=== PATIENT | female | born 1960 | race Caucasian/White ===

== ENCOUNTER 2024-03-10 13:20 | Outpatient (CLI) | payer MEDICARE, SELFPAY ==
--- OUTSIDE RECORDS SUMMARY | 2024-03-10 13:24 | XMS_ITS | Encounter Summary ---
Author Organization [facility] Address [address] [address] Phone Care Team Providers Care Descriptive Catalog Librarian Name Role Phone Karla Madera RN Unavailable [phone] Kyle Swann MD Primary Care Provider [phone] Reason for Visit * Reason Onset Date Comments Transitional Care 03/06/2024 Encounter Details Date Type Department Care Team (Late st Contact Info) Description 03/06/2024 Telephone [facility] - NURSE CARE LINE [address] [place] [address] Bernarda Almaraz, bag machine helper Social History Tobacco Use Types Packs/Day Years Used Date Smoking Tobacco: Every Day Cigarettes 1.5 40 Smokeless Tobacco: Never Comments:1 pack Alcohol Use Standard Drinks/Week Comments Yes 0 (1 standard drink = 0.6 oz pur e alcohol) five drinks per week [facility] Utilities Answer Date Recorded In the past 12 months has [employer], gas, oil, or water [employer] threatened to shut off services in your home? Patient declined 03/01/2024 Overall Financial Resource Strain (CARDIA) Answe r Date Recorded How hard is it for you to pa y for the very basics like food, housing, medical care, and heating? Not hard at all 08/28/2022 PHQ-2 Answer Date Recorded PHQ-2 Total 0 03/01/2024 Hunger Vital Sign Answer Date Recorded Within the past 12 months, y ou worried that your food would run out before you got the money to buy more. Patient declined Within the past 12 months, t he food you bought just didn't last and you didn't have money to get more. Patient declined PRAPARE - Transportation Answer Date Re corded In the past 12 months, has l ack of transportation kept you from medical appointments or from getting medications? Patient declined 03/03/2024 In the past 12 months, has l ack of transportation kept you from meetings, work, or from getting things needed for daily living? Patient declined 03/03/2024 Housing Stability Vital Sign Answer Osei e Recorded In the last 12 months, was t here a time when you were not able to pay the mortgage or rent on time? Patient declined 03/03/20 24 In the past 12 months, how m any times have you moved where you were living? 0 03/03/2024 At any time in the past 12 m [facility], were you homeless or living in a senior living (including now)? Patient declined 03/03/2024 EH IP Custom IPV Answer Date Recorded Do you feel UNSAFE in any of your personal relationships with your family members or any other acquaintances? No 2023 Sex and Gender Information Value Date Recorded Sex Assigned at Not on file Gender Identity Not on file Sexual Orientation Not on file Job Start Date Occupation Industry Not on file Not on file Not on file documented as of this encounter Functional Status Functional Status Response Date of Assess ment Patient's Vision Adequate to Safely Complete Daily Activities Yes 03/02/2024 Patient's Memory Adequate to Safely Complete Daily Activities Yes 03/02/2024 Cognitive Status Response Date of Assessm ent Patient's Judgment Adequate to Safely Complete Daily Activities Yes 03/02/2024 documented as of this encounter Miscellaneous Notes * Telephone Encounter - Bernarda Almaraz RN - 03/06/2024 11:46 AM CDT Transition of Care NOAH Admission Date: [03/02/24] Discharge Date: 03/05/24 Patient was discharged to: Home Spoke with: patient Patient is located in [place] Health Status: About the same. Discharge Instructions: Patient did receive discharge instructions. Patient does not have questions regarding the discharge instructions. Medications: Reviewed new and/or changed medications: Yes Patient does not have questions regarding her medications. Patient was able to get the medications filled at the pharmacy. Pain: Patient does not have pain at this time. Does patient have a diagnosis of Heart Failure? No Activity: Patient does have someone to help them at home and does feel comfortable taking care of Self at home. Patient does have all the equipment/services needed at home. Appointments: Patient has an appointment scheduled with Kyle Swann MD on 03/10/24 with an arrival time of 0945 and with Megan Herring PA-C on 03/17/24 with an arrival time of 1405. Patient does have questions or barriers about this appointment. Patient stated she may have to reschedule the appointment with Dr. Swann. She will call if needing a different date/time. Community Para Professional: No need identified for community spiral winder services Medication Therapy Management appointment was not scheduled for the following reason patient refuse. Patient was made aware of 05/01 nurse availability. Patient was able to verbalize when and who to call with questions/concerns. Total time spent on encounter: under 10 documented in this encounter Plan of Treatment Upcoming Encounters Date Type Department Care Team (Late st Contact Info) Description 03/17/2024 2:20 PM CDT Appointment [facility] [address] [place] [address] Megan Herring PA-C [address] [place] [phone] documented as of this encounter Visit Diagnoses Not on filedocumented in this encounter Additional Health Concerns Infection Onset Date Last Indicated Resolved Time History of C difficile 01/13/2024 01/13/2024 documented as of this encounter Care Teams Descriptive Catalog Librarian Relationship Specialty Start Date End Date Kyle Swann MD [address] [place] [address] PCP - General Family Medicine 02/12/24 Karla Madera, RN Member Services Representative 12/13/22 documented as of this encounter
--- OUTSIDE RECORDS SUMMARY | 2024-03-10 13:24 | XMS_ITS | Encounter Summary ---
Author Organization [facility] Address [address] [address] Phone Care Team Providers Care Coal Weigher Name Role Phone Karla Madera RN Unavailable [phone] Kyle Swann MD Primary Care Provider [phone] Reason for Visit * Reason Onset Date Comments Population Management 03/07/2024 Transition of Care review Encounter Details Date Type Department Care Team (Late st Contact Info) Description 03/07/[address] [facility]NA[facility] [address] [place] [address] Shadia Beckford, RN Population Management (Transition of Care review) Social History Tobacco Use Types Packs/Day Years Used Date Smoking Tobacco: Every Day Cigarettes 1.5 40 Smokeless Tobacco: Never Comments:1 pack Alcohol Use Standard Drinks/Week Comments Yes 0 (1 standard drink = 0.6 oz pur e alcohol) five drinks per week [facility] Utilities Answer Date Recorded In the past 12 months has [employer], gas, oil, or water [employer] threatened to shut off services in your [...] any time in the past 12 m [facility], were you homeless or living in a long-term (including now)? Patient declined 03/03/2024 IP Custom IPV Answer Date Recorded Do [...] Yes 03/02/2024 documented as of this encounter Progress Notes * Shadia Beckford RN - 03/07/2024 10:41 AM CDT Patient was discharged from [facility] on 03/05/2024. No post-discharge callwas completed because NOL made ONA[facility] call . documented in this encounter Plan of Treatment Upcoming Encounters Date Type Department Care Team ([facility] Contact Info) Description 03/17/2024 2:20 PM CDT Appointment [facility] [address] [place], [place] [id number] Megan Herring PA-C [address] [place] [phone] documented as of this encounter Visit Diagnoses Not on filedocumented in this encounter Additional Health Concerns Infection Onset Date Last Indicated Resolved Time History of C difficile 01/13/2024 01/13/2024 documented as of this encounter Care Teams Coal Weigher Relationship Specialty Start Date End Date Kyle Swann MD [address] [place] [address] PCP - General Family Medicine 02/12/24 Karla Madera, RN Rope Rider 12/13/22 documented as of this encounter
--- OUTSIDE RECORDS SUMMARY | 2024-03-10 13:24 | XMS_ITS | Encounter Summary ---
Author Organization [facility] Address [address] [address] Phone Care Team Providers Care Medical Collector Name Role Phone Karla Madera RN Unavailable [phone] Kyle Swann MD Primary Care Provider [phone] Reason for Referral * Office Visit (Routine) - New Request Specialty Diagnoses / Procedures Referred By Genia bautista Referred To Contact Gastroenterology Diagnoses Hospital discharge follow-up Dirk Saldana DO [address] [place] [address] Referral ID Status Reason Start Date Expiration Date V isits Requested Visits Authorized [id number] New Request 03/05/2024 09/02/2024 1 1 Question Answer Follow-up With: Other Specialty Referral Type: New Referral/Consult Dept Specialty: Gastroenterology [10] Follow-up Time Frame: 2 Weeks Diagnosis supporting this Referral: Hospital discharge follow-up [[id number]] * Office Visit (Routine) - New Request Specialty Diagnoses / Procedures Referred By Genia batuista Referred To Contact Family Medicine Diagnoses Diarrhea of presumed infectious origin Dirk Saldana DO [address] [place] [address] Referral ID Status Reason Start Date Expiration Date V isits Requested Visits Authorized [id number] New Request 03/05/2024 03/05/2025 1 1 Question Answer What type of Primary Care are you looking for? Hospital Follow-Up [9] Comments Location: [facility]. Reason for Referral: Hospital follow up ## Scheduling Instructions: Please call the [place] schedulers at [phone] or send the referral to the [facility] Schedulers pool ([id number]). ## Location of [facility], [facility] [address] [place] [address], [address] Phone #: [phone] Fax #: [phone] * Medication Prior Authorization - Closed Specialty Diagnoses / Procedures Referred By Genia bautista Referred To Contact Diagnoses Daily consumption of alcohol Dirk Saldana DO [address] [place] [id number] Referral ID Status Reason Start Date Expiration Date Visits Re quested Visits Authorized [id number] Closed 03/05/2024 1 1 Reason for Visit * Auth/Cert Specialty Diagnoses / Procedures Referred By Genia bautista Referred To Contact Diagnoses Recurrent c diff, hypokalemia Parmjit Hurley MD [address] [place] [phone] Referral ID Status Reason Start Date Expiration Date Visits Re quested Visits Authorized [id number] 1 1 Encounter Details Date Type Department Care Team (Latest Contact Info) Description 03/02/2024 3:45 AM CDT - 03/05/2024 5:57 PM CDT Hospital Encounter [facility] MED/SURG [address] [place], [place] [address] Parmjit Hurley MD [address] [place] [id number] Dirk Saldana DO [address] [place] [address] Diarrhea of presumed infectious origin (Primary Dx); Daily consumption of alcohol; Hospital discharge follow-up Discharge Disposition: Home and/or Self Care Social History Tobacco Use Types Packs/Day Years Used Date Smoking Tobacco: Every Day Cigarettes 1.5 40 Smokeless Tobacco: Never Comments:1 pack Alcohol Use Standard Drinks/Week Comments Yes 0 (1 standard drink = 0.6 oz pur e alcohol) five drinks per week [facility] Utilities Answer Date Recorded In the past 12 months has th e electric, gas, oil, or water company threatened to shut off services in your [...] any time in the past 12 m [facility], were you homeless or living in a halfway (including now)? Patient declined 03/03/2024 IP Custom [...] on file documented as of this encounter Last Filed Vital Signs Vital Sign Reading Time Taken Comments Blood Pressure 161/88 03/05/2024 6:28 AM CDT Pulse 102 03/05/2024 6:28 AM CDT Temperature 36.6 ??C (97.9 ??F) 03/05/2024 6:28 AM CD T Respiratory Rate 16 03/05/2024 11:17 AM CDT Oxygen Saturation 91% 03/05/2024 6:28 AM CDT Inhaled Oxygen Concentration - - Weight 63.3 kg (139 lb 8.8 oz) 03/03/2024 3:45 A M CDT Height - - Body Mass Index 23.95 01/30/2024 1:26 PM CDT documented in this encounter Functional Status Functional Status Response Date of Assess ment Patient's Vision Adequate to Safely Complete Daily Activities Yes 03/02/2024 Patient's Memory Adequate to Safely Complete Daily Activities Yes 03/02/2024 Cognitive Status Response Date of Assessm ent Patient's Judgment Adequate to Safely Complete Daily Activities Yes 03/02/2024 documented as of this encounter Discharge Summaries * Dirk Saldana DO - 03/05/2024 4:04 PM CDT Images from the original note were not included. 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 * Follow-Up Recommendations for the Outpatient Clinician -Recheck BMP and Mg -GI follow up to consider colonoscopy -Diarrhea Hospital Course Yas is a 64 year old female with a past medical history significant for hypertension and anxiety.She presents to the hospital with continued diarrhea. Worsening weakness. Fatigue. Reports she was initially diagnosed with C. difficile colitis in December. Started on a 10-day vancomycin course. Symptoms never resolved and return to the ER and was placed on a Dificid course, she is unsure how long for. Again had no resolution of her diarrhea and upon return to the ER was placed on an extended vancomycin taper. She is now the point in the taper where she is taking vancomycin every 48 hours. Statesdespite extensive treatment for the last almost 2 months she has had no relief of her symptoms. Shehas had recurrent electrolyte abnormalities and loose stools. Foul-smelling. No blood or mucus. Occasional abdominal pain / Cramping. Denies any fevers or chills. Was admitted for IV fluid hydration and electrolyte replacement as well as continued treatment for her presumed C. difficile colitis. C.difficile testing negative, stopped abx. Enteric pathogens negative. Started on Imodium with resolution of diarrhea, will need GI evaluation for consideration of a scope. Started on Mg and vitamin supplements. Should have electrolytes rechecked within a week at PCP follow up. Disposition and Discharge Plan Medications: Current Discharge Medication List New Prescriptions Details loperamide 2 MG capsule Commonly known as: Imodium Dose: 4 mg 4 mg, Oral, 4 TIMES DAILY NEEDED magnesium oxide 400 (240 Mg) MG Tablet Dose: 400 mg Start taking on: March 06, 2024 400 mg, Oral, ONCE DAILY plus vitamin with folic acid 1 mg tablet Dose: 1 Tablet Start taking on: March 06, 2024 1 Tablet, Oral, ONCE DAILY simethicone 80 MG chewable tablet Commonly known as: Gas-X Dose: 160 mg 160 mg, Chew, EVERY 6 HOURS NEEDED thiamine 100 MG tablet Commonly known as: Vitamin B-1 Dose: 100 mg Start taking on: March 06, 2024 100 mg, Oral, ONCE DAILY Continued Details aspirin 81 MG tablet 1 tablet once daily metoprolol succinate 100 MG 24 hour extended-release tablet Commonly known as: Toprol-XL Dose: 50 mg 50 mg, Oral, ONCE DAILY, Do not crush or chew. ondansetron 4 MG disintegrating tablet Commonly known as: Zofran ODT Dose: 4 mg 4 mg, Oral, EVERY 8 HOURS NEEDED You might also be taking other medications not listed above. If you have questions about any of your other medications, talk to the person who prescribed them or your Primary Care Provider. Stopped vancomycin 125 MG capsule Commonly known as: Vancocin Disposition: Yas was discharged from [facility] Med/surg to home. Yas was seen and examined on the date of discharge. Patient Instructions / Education: Please see After Visit Summary No future appointments. Referrals & Outpatient Orders: Discharge Procedure Orders Appt with [facility] Referral Priority: Routine Referral Type: Office Visit Requested Specialty: Family Medicine Number of Visits Requested: 1 Expiration Date: 03/05/25 Follow-up With: Other Specialty; Referral Type: New Referral/Consult; Dept Specialty: Gastroenterology Referral Priority: Routine Referral Type: Office Visit Number of Visits Requested: 1 Expiration Date: 09/02/24 Condition on Discharge Vital Signs: Blood pressure (!) 161/88, pulse 102, temperature 36.6 ??C (97.9 ??F), temperature source Oral, resp. rate 16, weight 63.3 kg (139 lb 8.8 oz), last menstrual period 04/15/2007, SpO2 91%. Physical Exam General Appearance: No apparent distress. Resting comfortably CV: Regular rate and rhythm. No murmur. No peripheral edema Resp: Clear to auscultation bilaterally. No respiratory distress. No oxygen requirement GI/ABD: Bowel sounds active. Abdomen is soft and nontender to palpation. No guarding or peritoneal signs. Skin: Warm. Dry. Intact. No jaundice MSK: No deformity. Neuro: Alert and oriented x 3 Psych: Mildly depressed affect Code Status:Full Code Hospitalization Data and Events Recent Labs: In Process Labs (336h ago, onward) None Recent Results (from the past 24 hour(s)) BASIC METABOLIC PANEL Result Value Ref Range Sodium 132 (L) 134 - 143 mEq/L Potassium 3.6 3.4 - 5.1 mEq/L Chloride 92 (L) 99 - 110 mEq/L Carbon Dioxide 27 19 - 29 mEq/L Anion Gap 13.0 3.0 - 15.0 mEq/L Blood Urea Nitrogen 3 (L) 5 - 24 mg/dL Creatinine 0.48 0.40 - 1.00 mg/dL Glomerular Filtration Rate 104 >60 mL/min/1.73 m*2 Calcium 8.7 8.4 - 10.5 mg/dL Glucose 150 (H) 70 - 99 mg/dL Narrative Current ADA criteria for Glucose: Normal: 70-99 mg/dL Impaired Fasting Glucose: 100-125 mg/dL Diabetes Mellitus: at or above 126 mg/dL The diagnosis of diabetes must be confirmed on a subsequent day by measuring Fasting Plasma Glucose, 2-hr PG or random plasma glucose (if symptoms are present). MAGNESIUM Result Value Ref Range Magnesium 1.6 (L) 1.8 - 2.7 mg/dL No results found for: Consultants: IP CONSULT TO NUTRITION SERVICES Procedures: None Imaging: Results for orders placed or performed in visit on 03/01/24 1. XR CHEST 2 VIEWS Narrative This document is currently in Final Status Exam XR CHEST 2 VIEWS HISTORY: hypoxia; IMPRESSION: 08/28/2016 comparison. Retrocardiac/left lower lobe patchy opacities, correlate for pneumonia. No pleural effusion. No pneumothorax. Nonenlarged, nondisplaced cardiac size and position. Thoracic spondylosis. Calcified aortic arch. Electronically Signed: Alex Abbott 03/01/2024 4:25 PM Dirk Saldana DO Total time spent for discharge on date of discharge: Greater than 30 minutes. documented in this encounter Medications at Time of Discharge Medication Sig Dispensed Refills Start Date End Date loperamide (Imodium) 2 MG capsule Take 2 Capsules by mouth four times a day as needed for Diarrhea. 120 Capsule 03/05/2024 magnesium oxide 400 (240 Mg) MG Tablet Take 1 Tablet by mouth one time a day. 30 Tablet 03/06/2024 Vit-Fe Fumarate-FA ( plus vitamin with folic acid 1 mg) tablet Take 1 Tablet by mouth one time a day. 30 Tablet 03/06/2024 simethicone (Gas-X) 80 MG chewable tablet Chew and swallow 2 Tablets every six hours as needed for Cramping. 30 Tablet 03/05/2024 thiamine (Vitamin B-1) 100 MG tabletIndications:Daily consumption of alcohol Take 1 Tablet by mouth one time a day. 30 Tablet 03/06/2024 ondansetron (Zofran ODT) 4 MG disintegrating tabletIndications:Nausea Take 1 Tablet by mouth every eight hours as needed for Nausea or Vomiting. 30 Tablet 11 03/01/2024 metoprolol succinate (Toprol-XL) 100 MG 24 hour extended-release tabletIndications:Essenti al hypertension with goal blood pressure less than 140/90 Take 0.5 Tablets by mouth one time a day. Do not crush or chew. 45 Tablet 1 10/12/2023 ASPIRIN 81 MG OR TABS 1 tablet once daily 100 3 09/13/2007 documented as of this encounter Ordered Prescriptions Prescription Sig Dispensed Refills Start Date End Da te thiamine (Vitamin B-1) 100 MG tabletIndications:Daily consumption of alcohol Take 1 Tablet by mouth one time a day. 30 Tablet 03/06/2024 simethicone (Gas-X) 80 MG chewable tablet Chew and swallow 2 Tablets every six hours as needed for Cramping. 30 Tablet 03/05/2024 Vit-Fe Fumarate-FA ( plus vitamin with folic acid 1 mg) tablet Take 1 Tablet by mouth one time a day. 30 Tablet 03/06/2024 magnesium oxide 400 (240 Mg) MG Tablet Take 1 Tablet by mouth one time a day. 30 Tablet 03/06/2024 loperamide (Imodium) 2 MG capsule Take 2 Capsules by mouth four times a day as needed for Diarrhea. 120 Capsule 03/05/2024 documented in this encounter Discharge Disposition Disposition Code Departure Means Destination Comment s Home and/or Self [facility] documented in this encounter Progress Notes * Johnnie Abad RN - 03/05/2024 5:55 PM CDT Reviwed discharge instructions with pt. Discussed diet, activity level, med list, pain mgmt. Also discussed specific instructions for pt including:F/U. Pt reported understanding of instructions. Pt left unit with Family via wheelchair with discharge paperwork, personal belongings, and medications at 1751. Discharged to home. * Dirk Saldana DO - 03/05/2024 11:06 AM CDT [facility] Medicine [facility] Hospital Course Yas is a 64 year old female with a past medical history significant for hypertension and anxiety.She presents to the hospital with continued diarrhea. Worsening weakness. Fatigue. Reports she was initially diagnosed with C. difficile colitis and [place]. Started on a 10-day vancomycin course. Symptoms never resolved and return to the ER and was placed on a Dificid course, she is unsure how long for. Again had no resolution of her diarrhea and upon return to the ER was placed on an extended vancomycin taper. She is now the point in the taper where she is taking vancomycin every 48 hours. States despite extensive treatment for the last almost 2 months she has had no relief of her symptoms. She has had recurrent electrolyte abnormalities and loose stools are early. Foul-smelling. No blood ormucus. Occasional abdominal pain / Cramping. Denies any fevers or chills. Was admitted for IV fluidhydration and electrolyte replacement as well as continued treatment for her presumed C. difficile c olitis. C. difficile testing negative, stopped abx. Enteric pathogens negative. Started on Imodium with some improvement, will need GI for scope outpatient once diarrhea is controlled. Assessment/Plan Diarrhea -Initially thought continuation of C. Difficile, but recheck negative -Enteric pathogens negative -Started Imodium, with resolution of symptoms. -Plan to control diarrhea symptoms and have patient follow up with GI for a scope. May need to see inpatient if unable to control diarrhea given her electrolyte abnormalities. Hypokalemia Hypomagnesemia Hyponatremia -K normal today -Mg a little low again, will replace and add a daily supplement at that this point now that her diarrhea is improving. -Na and Cl down a bit with decreased appetite. 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 Subjective Patient found sleeping. Easily arousable. Feels very weak and tired today. Decreased appetite. States diarrhea has resolved with Imodium. Last bowel movement was yesterday. Does not feel strong afterthe home. Sodium and chloride down a bit today. Appears little dehydrated. Objective Vitals T: 36.6 ??C (97.9 ??F) BP: (!) 161/88 HR: 102 RR: 16 SpO2: 91 % Weights:63.3 kg (139 lb 8.8 oz) BMI: Admit Wt: 59.9 kg (132 lb 0.9 oz) (Graphs) Chart Review ICU Labs Micro Rad AntiCoag Mar(Hx) Glu / DM I/O Graph I/O (BM) Pain Blood Home Meds PDMP Lab/Path Telemetry: All lines/tubes etc other than PIV's: Physical Exam General Appearance: No apparent distress. Resting comfortably CV: Regular rate and rhythm. No murmur. No peripheral edema Resp: Clear to auscultation bilaterally. No respiratory distress. No oxygen requirement GI/ABD: Bowel sounds active. Abdomen is soft and nontender to palpation. No guarding or peritoneal signs. Skin: Warm. Dry. Intact. No jaundice MSK: No deformity. Neuro: Alert and oriented x 3 Psych: Mildly depressed affect Dirk Saldana DO * Dirk Saldana DO - 03/04/2024 10:59 AM CDT [facility] Medicine Service Hospital Course Yas is a 64 year old female with a past medical history significant for hypertension and anxiety.She presents to the hospital with continued diarrhea. Worsening weakness. Fatigue. Reports she was initially diagnosed with C. difficile colitis and December. Started on a 10-day vancomycin course. Symptoms never resolved and return to the ER and was placed on a Dificid course, she is unsure how long for. Again had no resolution of her diarrhea and upon return to the ER was placed on an extended vancomycin taper. She is now the point in the taper where she is taking vancomycin every 48 hours. States despite extensive treatment for the last almost 2 months she has had no relief of her symptoms. She has had recurrent electrolyte abnormalities and loose stools are early. Foul-smelling. No blood ormucus. Occasional abdominal pain / Cramping. Denies any fevers or chills. Was admitted for IV fluidhydration and electrolyte replacement as well as continued treatment for her presumed C. difficile c olitis. C. difficile testing negative, stopped abx. Enteric pathogens negative. Started on Imodium with some improvement, will need GI for scope outpatient once diarrhea is controlled. Assessment/Plan Diarrhea -Initially thought continuation of C. Difficile, but recheck negative -Enteric pathogens negative -Started Imodium, with improvement in symptoms. Some cramping today. Add Gas-X -Plan to control diarrhea symptoms and have patient follow up with GI for a scope. May need to see inpatient if unable to control diarrhea given her electrolyte abnormalities. -Stop IVF's and monitor PO input today. Not feeling very hungry at the moment. Hypokalemia Hypomagnesemia -K normal today -Mg a little low, will replaced. 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 Subjective Patient found sleeping. Easily arousable. Feeling better today. Less diarrhea. Couple loose stools yesterday. Some gas pain overnight that improved with Gas-X and oxycodone. Vitals are stable. She isafebrile. Does not really feel hungry this morning but will try to eat. Electrolytes seem to have improved. Mag is a little low Objective Vitals T: 37 ??C (98.6 ??F) BP: (!) 153/82 HR: 92 RR: 18 SpO2: 92 % Weights:63.3 kg (139 lb 8.8 oz) BMI: Admit Wt: 59.9 kg (132 lb 0.9 oz) (Graphs) Chart Review ICU Labs Micro Rad AntiCoag Mar(Hx) Glu / DM I/O Graph I/O (BM) Pain Blood Home Meds PDMP Lab/Path Telemetry: All lines/tubes etc other than PIV's: Physical Exam General Appearance: No apparent distress. Resting comfortably CV: Regular rate and rhythm. No murmur. No peripheral edema Resp: Clear to auscultation bilaterally. No respiratory distress. No oxygen requirement GI/ABD: Bowel sounds active. Abdomen is soft and nontender to palpation. No guarding or peritoneal signs. Skin: Warm. Dry. Intact. No jaundice MSK: No deformity. Neuro: Alert and oriented x 3 Psych: Normal mood and affect. : No suprapubic tenderness or flank pain. Dirk Saldana DO * Mona Kelly RN - 03/04/2024 6:24 AM CDT Patient had complaints of increased gas pain. PRN gas x ordered and given. Did not relieve pain. Patient stated left lower quadrant pain. Patient utilized PRN tylenol which did not help. Then tried PRN oxycodone which was successful in treating pain. Patient slept through the night after PRN oxycodone. * Olesya Pike RN - 03/03/2024 6:34 PM CDT +1 pitting edema on bilateral lower extremities. Lung sounds clear. Provider notified. * Olesya Pike RN - 03/03/2024 5:21 PM CDT Spoke with Daughter who is at bedside and daughters are both concerned about their mom. Patient said to daughter via phone this morning They are kicking me out of here, I guess ill just need to makea follow up appointment. Daughters are concerned that patient will want to leave soon to go home to drink alcohol. They are also worried that she may not go to follow up visits or possible procedures if patient isn't in a hospital setting. Daughter also states she is worried about her being able to drive due to her drinking habits and she is drinking more than she is leading on. Washer Cutter spoke with patient ans verbalized she does not have the urge to drink alcohol and didn't plan on leaving AMA. Pt's CIWA score has been 0 while admitted at [facility]. VSS. PT has been resting but withdrawn. Alert and oriented x4. Provider updated. * Doreen Teran RN - 03/03/2024 3:47 PM CDT Daughter Ariane called and wanted to update staff that patient is a heavy drinker and she is worried that patient may try to leave AMA to go home and drink. Washer Cutter passed along information to primary nurse. * Dirk Saldana DO - 03/03/2024 10:46 AM CDT [facility] Course Yas is a 64 year old female with a past medical history significant for hypertension and anxiety.She presents to the hospital with continued diarrhea. Worsening weakness. Fatigue. Reports she was initially diagnosed with C. difficile colitis and December. Started on a 10-day vancomycin course. Symptoms never resolved and return to the ER and was placed on a Dificid course, she is unsure how long for. Again had no resolution of her diarrhea and upon return to the ER was placed on an extended vancomycin taper. She is now the point in the taper where she is taking vancomycin every 48 hours. States despite extensive treatment for the last almost 2 months she has had no relief of her symptoms. She has had recurrent electrolyte abnormalities and loose stools are early. Foul-smelling. No blood ormucus. Occasional abdominal pain / Cramping. Denies any fevers or chills. Was admitted for IV fluidhydration and electrolyte replacement as well as continued treatment for her presumed C. difficile c olitis. C. difficile testing negative, stopped abx. Will test enteric pathogens for completeness. Started on Imodium, will need GI for scope outpatient once diarrhea is controlled. Assessment/Plan Diarrhea -Initially thought continuation of C. Difficile, but recheck negative -Stop vancomycin -Check enteric pathogens for completeness -Start Imodium -Plan to control diarrhea symptoms and have patient follow up with GI for a scope. May need to see inpatient if unable to control diarrhea given her electrolyte abnormalities. 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 Subjective Patient resting comfortably in bed. Still having diarrhea. Thinks is a little bit improved today compared to yesterday. Her C. difficile testing came back negative. She denies any fevers or chills. Feels hungry. Electrolytes low again today. Vital stable. Objective Vitals T: 36.8 ??C (98.2 ??F) BP: (!) 144/84 HR: 101 RR: 18 SpO2: 90 % Weights:63.3 kg (139 lb 8.8 oz) BMI: Admit Wt: 59.9 kg (132 lb 0.9 oz) (Graphs) Chart Review ICU Labs Micro Rad AntiCoag Mar(Hx) Glu / DM I/O Graph I/O (BM) Pain Blood Home Meds PDMP Lab/Path Telemetry: All lines/tubes etc other than PIV's: Physical Exam General Appearance: No apparent distress. Resting comfortably CV: Regular rate and rhythm. No murmur. No peripheral edema Resp: Clear to auscultation bilaterally. No respiratory distress. No oxygen requirement GI/ABD: Bowel sounds active. Abdomen is soft and nontender to palpation. No guarding or peritoneal signs. Skin: Warm. Dry. Intact. No jaundice MSK: No deformity. Neuro: Alert and oriented x 3 Psych: Normal mood and affect. : No suprapubic tenderness or flank pain. Dirk Saldana DO * Olesya Pike RN - 03/03/2024 9:39 AM CDT Pt Cdiff came back negative, provider notified and specification writer held antibiotics per verbal order. Loss of IV access. Plan to establish another line. 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 Ondansetron is a new prescription on 03/01/24. Prior to Admission Medications Prescriptions Last Dose Informant Patient Reported? Taking? ASPIRIN 81 MG OR TABS 03/02/2024 No No Si tablet once daily metoprolol succinate (Toprol-XL) 100 MG 24 hour extended-release tablet 03/02/2024 No No Sig: Take 0.5 Tablets by mouth one time a day. Do not crush or chew. ondansetron (Zofran ODT) 4 MG disintegrating tablet Unknown No No Sig: Take 1 Tablet by mouth every eight hours as needed for Nausea or Vomiting. vancomycin (Vancocin) 125 MG capsule 03/02/2024 No No Sig: Take 1 Capsule by mouth four times a day for 7 days, THEN 1 Capsule two times a day for 7 days, THEN 1 Capsule one time a day for 7 days, THEN 1 Capsule every 48 hours for 14 days. Indications: Colon Inflammation due to Clostridium Bacteria Overgrowth Facility-Administered Medications: None If questions arise, please call the central pharmacy. Thank you, George Bateman PharmD 03/03/2024, 7:01 AM * Olesya Pike RN - 03/02/2024 1:00 PM CDT Patient alert and oriented x4. Denies pain. New IV replaced in L wrist. Provider ordered K+ riders.Pt verbalized she wants oral instead. Provider gave verbal ok to give oral form. Cdiff sample sent to lab and is pending. Up independently in room. LR running at 125 continuous per order. Stools are green/brown and mucous like. Any goals not addressed individually are progressing as expected without changes in interventions. * Samaria Ewing RN - 03/02/2024 6:55 AM CDT Yas Rivera is 64 year old female admitted from [facility] ER to 2918/ via stretcher at 0340, accompanied by patient. IV of NS and potassium infusing in LUE. Patient is in no distress, with vital signs of: Vitals: 03/02/24 0345 BP: 116/80 Pulse: 99 Temp: 36.7 ??C (98.1 ??F) TempSrc: Oral Resp: 18 Weight: 59.9 kg (132 lb 0.9 oz) SpO2: 93% Patient's status is stable with the patient being alert, oriented x 4 (time, place, person, situation), and pleasant. Patient is oriented to the following: BR/ER light , bed controls , TV/radio , telephone , bathroom , visiting hours , and call light . Please see nursing admission assessment for more details. Samaria Ewing RN documented in this encounter H&P Notes * Dirk Saldana DO - 03/02/2024 1:59 PM CDT ADMISSION HISTORY AND PHYSICAL [facility] Yas Rivera [address] [facility] [id number] 64 year old female Admission Date/ Time: 03/02/2024 3:45 AM Primary Care Provider: Kyle Swann MD Subjective Chief Complaint: Diarrhea HPI: Patient is a 64-year-old female with a past medical history significant for hypertension and anxiety. She presents to the hospital with continued diarrhea. Worsening weakness. Fatigue. Reports she was initially diagnosed with C. difficile colitis and December. Started on a 10-day vancomycin course. Symptoms never resolved and return to the ER and was placed on a Dificid course, she is unsure how longfor. Again had no resolution of her diarrhea and upon return to the ER was placed on an extended vancomycin taper. She is now the point in the taper where she is taking vancomycin every 48 hours. States despite extensive treatment for the last almost 2 months she has had no relief of her symptoms. S he has had recurrent electrolyte abnormalities and loose stools are early. Foul- smelling. No blood or mucus. Occasional abdominal pain / Cramping. Denies any fevers or chills. Was admitted for IV fluid hydration and electrolyte replacement as well as continued treatment for her presumed C. difficile colitis. C. difficile testing pending. Today she denies any chest pain, shortness of breath, nausea, vomiting, dysuria, flank pain, headaches, vision changes. Review of Systems Pertinent items are noted above. All other systems reviewed and found to be negative. Assessment/Plan Diarrhea of presumed infectious origin -Presumed continuation of C. Difficile? -Recheck C. Difficile -Pending results will discuss with ID. 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 Additional History History (edit) Past Medical History: Diagnosis Date Abdominal pain 09/26/2002 abdominal discomfort / strange sensation in the right side of the rib Benign neoplasm of colon 05/12/2007 Benign neoplasm of skin of other and unspecified parts of face 05/16/2003 intradermal nevus, mid right cheek Cervicalgia 09/26/1998 left sided neck pain Conjunctivitis unspecified 03/01/1998 left greater than left - suspect allergic Contact dermatitis and other eczema, due to unspecified cause 02/14/1999 Contact dermatitis with occasional urticaria Dermatophytosis of foot 12/21/2000 tinea pedis Diverticulosis of colon (without mention of hemorrhage) 05/12/2007 Dysplasia of cervix (uteri) 01/09/2003 persistant mild dysplasia Enlargement of lymph nodes 05/04/2000 physiologic lymphoid hyperplasia - right groin mass Erythematous conditions 07/27/1995 symmetrical erythema on face, nose, and chin - also scarring cystic acne symmetrically predominantly on the lower third of face Goiter, unspecified 12/09/1999 borderline thyromegaly Hemorrhage of rectum and anus 05/12/2007 Hyperlipidemia Hypertension Hypothyroidism 12/21/1996 history of was on thryoxine for several years and then did not need it any more. 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 Unspecified hypothyroidism 12/21/1996 history of Past Surgical History: Procedure Laterality Date BIOPSY/EXCISION, LYMPH NODE(S) 05/13/2000 biopsy of deep right inguinal groin lymph node with benign results COLONOSCOPY,REMV LESN,SNARE 05/12/2007 COLPOSCOPY,BX CERVIX/ENDOCERV CURR 09/12/2002 benign endocervical curettage; cervix, biopsy: koilocytotic atypia/mild squamous dysplasia - times 6 previous dates DRAIN SKIN ABSCESS SIMPLE 05/11/2002 incision and drainage of a hyper keratotic plug overlaying a tiny sebaceous cyst EAR PROCEDURE 12/27/1996 excision of osteoma of the left ear canal / canal plasty LAMINECTOMY,LUMBAR 09/08/2002 L2 - L5 severe lumbar spinal stenosis with neurogenic claudication and left leg radicular pain. LASER SURGERY OF CERVIX 01/09/2003 lasor vaporization - previous 09/12/02 US ABDOMEN COMPLETE 09/29/2002 partially obscured pancreas. no specific abnormalities. XR RIBS 1 SIDE 2 OBL VWS 07/19/2002 negative Family History Problem Relation Name Age of Onset Cancer Maternal Grandmother gallbladder - unknown maternal/paternal/liver cancer Cardiovascular Disease Maternal Grandmother coronary artery disease Hypertension Mother Ophthalmic Disease Mother glaucoma, mac. degen. 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 Has two adult children and one step son. 5 grandchildren. 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 [employer] Social Determinants of Health Financial Resource Strain: Low Risk (08/28/2022) Overall Financial Resource Strain (CARDIA) Difficulty of Paying Living Expenses: Not hard at all Food Insecurity: Unknown (03/01/2024) Hunger Vital Sign Ran Out of Food in the Last Year: Patient declined Transportation Needs: Patient Declined (03/01/2024) PRAPARE - Transportation Lack of Transportation (Medical): Patient declined Lack of Transportation (Non-Medical): Patient declined Physical Activity: Inactive (05/24/2019) Received from [facility] Exercise Vital Sign Days of Exercise per Week: 0 days Minutes of Exercise per Session: 0 min Stress: Stress Concern Present (05/24/2019) Received from [facility] [employer] [place] [employer] - Occupational Stress Questionnaire Feeling of Stress : Very much Social Connections: Moderately Isolated (05/24/2019) Received from [facility] Social Connection and Isolation Panel [NHANES] Frequency of Communication with Friends and Family: More than three times a week Frequency of Social Gatherings with Friends and Family: Three times a week Attends [employer] Services: Never Active Member of Clubs or Organizations: No Attends Club or Organization Meetings: Never Marital Status: Intimate Partner Violence: Not At Risk (03/02/2024) IP Custom IPV Intimate Partner Violence: No Housing Stability: Patient Declined (03/01/2024) Housing Stability Vital Sign Unable to Pay for Housing in the Last Year: Patient declined Homeless in the Last Year: Patient declined Prior to Admission Medications Prescriptions Last Dose Informant Patient Reported? Taking? ASPIRIN 81 MG OR TABS 03/02/2024 No No Si tablet once daily metoprolol succinate (Toprol-XL) 100 MG 24 hour extended-release tablet 03/02/2024 No No Sig: Take 0.5 Tablets by mouth one time a day. Do not crush or chew. ondansetron (Zofran ODT) 4 MG disintegrating tablet Unknown No No Sig: Take 1 Tablet by mouth every eight hours as needed for Nausea or Vomiting. vancomycin (Vancocin) 125 MG capsule 03/02/2024 No No Sig: Take 1 Capsule by mouth four times a day for 7 days, THEN 1 Capsule two times a day for 7 days, THEN 1 Capsule one time a day for 7 days, THEN 1 Capsule every 48 hours for 14 days. Indications: Colon Inflammation due to Clostridium Bacteria Overgrowth Facility-Administered Medications: None Allergies/Sensitivities: Allergies Allergen Reactions Benzoyl Peroxide RASH allergic contact dermatitis allergic contact dermatitis allergic contact dermatitis Benzoyl Peroxide allergic contact dermatitis Environmental Some metals Latex Pruritis Objective Vitals T: 36.7 ??C (98 ??F) BP: 116/73 HR: 88 RR: 18 SpO2: 94 % Weights:59.9 kg (132 lb 0.9 oz) BMI: Admit Wt: 59.9 kg (132 lb 0.9 oz) (Graphs) Chart Review ICU Labs Micro Rad AntiCoag Mar(Hx) Glu / DM I/O Graph I/O (BM) Pain Blood Home Meds PDMP Lab/Path Telemetry: All lines/tubes etc other than PIV's: Physical Exam General Appearance: No apparent distress. Resting comfortably CV: Regular rate and rhythm. No murmur. No peripheral edema Resp: Clear to auscultation bilaterally. No respiratory distress. No oxygen requirement GI/ABD: Bowel sounds hyper-active. Abdomen is soft and nontender to palpation. No guarding or peritoneal signs. Skin: Warm. Dry. Intact. No jaundice MSK: No deformity. Neuro: Alert and oriented x 3 Psych: Normal mood and affect. : No suprapubic tenderness or flank pain. Diagnostics: Recent Results (from the past 24 hour(s)) MAGNESIUM Result Value Ref Range Magnesium 1.6 (L) 1.8 - 2.7 mg/dL VITAMIN B12 Result Value Ref Range Vitamin B12 785 213 - 816 pg/mL FOLATE, SERUM Result Value Ref Range Folate <2.2 (L) 7.0 - 31.4 ng/mL Narrative Folate Reference Range Normal: 7.0 - 31.4 ng/mL Indeterminate: 3.5 - 6.9 ng/mL Deficient: <3.5 ng/mL VITAMIN D TOTAL Result Value Ref Range Vitamin D Total 5 (L) 27 - 80 ng/mL Narrative [facility] Reference Range Deficiency <10 ng/mL Insufficiency 10-26 ng/mL Sufficiency 27-80 ng/mL Toxicity >80 ng/mL COMPREHENSIVE METABOLIC PANEL Result Value Ref Range Sodium 139 134 - 143 mEq/L Potassium 2.3 (LL) 3.4 - 5.1 mEq/L Chloride 88 (L) 99 - 110 mEq/L Carbon Dioxide 36 (H) 19 - 29 mEq/L Anion Gap 15.0 3.0 - 15.0 mEq/L Blood Urea Nitrogen 9 5 - 24 mg/dL Creatinine 0.58 0.40 - 1.00 mg/dL Glomerular Filtration Rate 100 >60 mL/min/1.73 m*2 Calcium 8.6 8.4 - 10.5 mg/dL Glucose 120 (H) 70 - 99 mg/dL Protein, Total 6.8 6.0 - 8.0 g/dL Albumin 2.8 (L) 3.5 - 5.0 g/dL Alkaline Phosphatase 399 (H) 40 - 150 IU/L Aspartate Aminotransferase 88 (H) 10 - 40 IU/L Alanine Aminotransferase 37 (H) 6 - 31 IU/L Bilirubin, Total 1.2 0.2 - 1.2 mg/dL Narrative Current ADA criteria for Glucose: Normal: 70-99 mg/dL Impaired Fasting Glucose: 100-125 mg/dL Diabetes Mellitus: at or above 126 mg/dL The diagnosis of diabetes must be confirmed on a subsequent day by measuring Fasting Plasma Glucose, 2-hr PG or random plasma glucose (if symptoms are present). HEMOGRAM/DIFFERENTIAL Result Value Ref Range WBC 11.6 (H) 3.2 - 11.0 10*9/L RBC 2.40 (L) 3.77 - 5.24 10*12/L HGB 9.5 (L) 11.2 - 15.5 g/dL HCT 27.2 (L) 34.3 - 46.0 % MCV 113.3 (H) 81.4 - 99.0 fL MCH 39.6 (H) 26.7 - 33.1 pg MCHC 34.9 31.6 - 35.5 g/dL RDW 16.6 (H) 11.3 - 14.6 % PLT 320 130 - 375 10*9/L Neutrophils % 80.9 % Lymphocytes % 12.9 % Monocytes % 5.3 % Eosinophils % 0.2 % Basophils % 0.1 % Immature Granulocytes % 0.6 % Neutrophils Absolute 9.4 (H) 1.5 - 7.6 10*9/L Lymphocytes Absolute 1.5 0.8 - 3.3 10*9/L Monocytes Absolute 0.6 0.2 - 0.9 10*9/L Eosinophils Absolute 0.0 0.0 - 0.4 10*9/L Basophils Absolute 0.0 0.0 - 0.1 10*9/L Immature Granulocytes Absolute 0.07 (H) 0.00 - 0.06 10*9/L COMPREHENSIVE METABOLIC PANEL Result Value Ref Range Sodium 140 134 - 143 mEq/L Potassium 2.5 (LL) 3.4 - 5.1 mEq/L Chloride 90 (L) 99 - 110 mEq/L Carbon Dioxide 33 (H) 19 - 29 mEq/L Anion Gap 17.0 (H) 3.0 - 15.0 mEq/L Blood Urea Nitrogen 9 5 - 24 mg/dL Creatinine 0.54 0.40 - 1.00 mg/dL Glomerular Filtration Rate 101 >60 mL/min/1.73 m*2 Calcium 8.3 (L) 8.4 - 10.5 mg/dL Glucose 111 (H) 70 - 99 mg/dL Protein, Total 6.0 6.0 - 8.0 g/dL Albumin 2.5 (L) 3.5 - 5.0 g/dL Alkaline Phosphatase 353 (H) 40 - 150 IU/L Aspartate Aminotransferase 81 (H) 10 - 40 IU/L Alanine Aminotransferase 33 (H) 6 - 31 IU/L Bilirubin, Total 1.1 0.2 - 1.2 mg/dL Narrative Current ADA criteria for Glucose: Normal: 70-99 mg/dL Impaired Fasting Glucose: 100-125 mg/dL Diabetes Mellitus: at or above 126 mg/dL The diagnosis of diabetes must be confirmed on a subsequent day by measuring Fasting Plasma Glucose, 2-hr PG or random plasma glucose (if symptoms are present). MAGNESIUM Result Value Ref Range Magnesium 1.4 (L) 1.8 - 2.7 mg/dL ALCOHOL Result Value Ref Range Alcohol <10.0 <=10.0 mg/dL FERRITIN Result Value Ref Range Ferritin 2,902 (H) 10 - 200 ng/mL PHOSPHORUS Result Value Ref Range Phosphorus 2.3 (L) 2.5 - 4.6 mg/dL TROPONIN I Result Value Ref Range High Sensitivity Troponin I <2.7 <=14.0 ng/L LACTIC ACID, VENOUS Result Value Ref Range Lactic Acid, Venous 1.9 0.5 - 2.0 mmol/L BASIC METABOLIC PANEL Result Value Ref Range Sodium 140 134 - 143 mEq/L Potassium 3.1 (L) 3.4 - 5.1 mEq/L Chloride 94 (L) 99 - 110 mEq/L Carbon Dioxide 32 (H) 19 - 29 mEq/L Anion Gap 14.0 3.0 - 15.0 mEq/L Blood Urea Nitrogen 8 5 - 24 mg/dL Creatinine 0.50 0.40 - 1.00 mg/dL Glomerular Filtration Rate 103 >60 mL/min/1.73 m*2 Calcium 8.2 (L) 8.4 - 10.5 mg/dL Glucose 133 (H) 70 - 99 mg/dL Narrative Current ADA criteria for Glucose: Normal: 70-99 mg/dL Impaired Fasting Glucose: 100-125 mg/dL Diabetes Mellitus: at or above 126 mg/dL The diagnosis of diabetes must be confirmed on a subsequent day by measuring Fasting Plasma Glucose, 2-hr PG or random plasma glucose (if symptoms are present). C-REACTIVE PROTEIN Result Value Ref Range C-Reactive Protein 9.0 (H) 0.0 - 0.8 mg/dL MAGNESIUM Result Value Ref Range Magnesium 2.1 1.8 - 2.7 mg/dL Imaging: Results for orders placed or performed in visit on 03/01/24 1. XR CHEST 2 VIEWS Narrative This document is currently in Final Status Exam XR CHEST 2 VIEWS HISTORY: hypoxia; IMPRESSION: 08/28/2016 comparison. Retrocardiac/left lower lobe patchy opacities, correlate for pneumonia. No pleural effusion. No pneumothorax. Nonenlarged, nondisplaced cardiac size and position. Thoracic spondylosis. Calcified aortic arch. Electronically Signed: Alex Abbott 03/01/2024 4:25 PM n/a EKG n/a Dirk Medina. DO Shana documented in this encounter Consult Notes * Kerri Vo - 03/04/2024 3:46 PM CDT Case Management Assessment Yas Rivera is a 64 year old with diagnosis of Recurrent c diff, hypokalemia Kyle Swann MD Met with patient at bedside. Explained the role of Case Management in the care team as well as the discharge planning process. Meeting Outcome: Patient is from home in [place] where she resides alone, she is retired, has familythat lives close by, and she is independent with all ADLs and IADLs. 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 Prefinish/Vulcan Crewmember: none Health Care Agent/Guardian Name: n/a Financial POA/Conservator: self Coping/adjustment to illness: appropriate Spiritual/Cultural Needs: none reported Mental Health Symptoms and Services: MONIQUE Capacity for self-care Orientation Level: not formally assessed Cognition: not formally assessed Baseline Ability to complete ADL???s: Independent Baseline Ability to complete household tasks: Independent Baseline Patient Mobility: Independent Current Patient Mobility: Independent Social Determinants of Health Within the past 12 months, you worried that your food would run out before you got the money to buymore.: Patient declined Within the past 12 months, the food you bought just didn't last and you didn't have money to get more.: Patient declined In the past 12 months, has lack of transportation kept you from medical appointments or from getting medications?: Patient declined In the past 12 months, has lack of transportation kept you from meetings, work, or from getting things needed for daily living?: Patient declined Socioeconomic needs Current Employment Status: Retired Service: No [facility] Connected: No Level of Service connection: n/a Insurance: Payor: ARE / Plan: ARE MEDICARE PLANS / Product Type: Medicare Replacement / Secondary Insurance: n/a Restricted Recipient: no Readmission/LACE Score Readmission within 30 days? no Current LACE score: 11 Any known issues related to readmission? N/a Discharge Disposition Plan Patient/family preference for discharge: home How patient will be transported: daughter Kerri VoTOMASZ * Yenny Steen - 03/04/2024 12:00 PM CDTAssociated Order(s): IP CONSULT TO NUTRITION SERVICES Medical Nutrition Therapy Consult Note Dietetic Consult: BPA, wt loss, decreased appetite Recommendations/Plan: Continue current diet: General. Supplement order: Will trial Vanilla CIB at breakfast, [place] Ensure Enlive at lunch, and HP tapia gelatein at dinner. Ordered weights twice a week for trend. Recommend standing scale for accuracy if able. Continued concern for malnutrition d/t reports of wt loss and decreased appetite from nutrition admit screen. But current weight hx does not meet clinical diagnostic criteria at this time. Will continue to monitor/assess. RD will continue to follow. Goal: Pt to meet at least 75% of nutritional needs via PO intake. Stable weight trend. Status/Assessment: Pertinent Problems: 64-year-old female with PMHx for HTN, hemochromatosis, and anxiety, admitted with c/o continued diarrhea, fatigue, and worsening weakness. She has recurrent electrolyte abnormalities and loose stools are early/foul- smelling. Occasional abdominal pain/cramping. Dx: diarrhea of presumed infectious origin, hypokalemia, hypomagnesemia Chart reviewed including medications, I&O, lab results, notes. Pt negative for C diff and enteric pathogens. Not feeling very hungry per Hospitalist note 03/04. Flowsheet indicates patient has a poor appetite. 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 Called patient's bed phone, but pt declined wantingto talk and asked to call back later. Data: Pertinent Medications: Folvite, Imodium, magnesium sulfate, Toprol-XL, plus vit with folicacid, thiamine Pertinent Labs: Mg low at 1.6 - receiving magnesium sulfate Phos was low (03/03) at 2.3, but now corrected and WNL K+ was low (03/03) at 3.1, but now corrected and WNL Na WNL Output: +UOP; last BM 03/03 (mucous) Anthropometrics: Height: 162.6 cm (5' 4) Admit Wt: 59.9 kg, 132 lb (03/02/24) Admit BMI: 22.6 kg/m^2 IBW: 55 kg +/- 10% Current Weight: 63.3 kg (139 lb 8.8 oz) (03/04/24), edema +1 RLE WEIGHT KG Weight (kg) Weight (lbs) 10/16/2022 65.5 kg 144 lb 6.4 oz 01/12/2024 58 kg 127 lb 13.9 oz 03/03/2024 63.3 kg 139 lb 8.8 oz - Standing Scale Edema +1 RLE Limited weight hx in EMR. Pt's weight seems to be fluctuating up and down over the last year. Estimated Daily Needs: Kcals: 1395 - 1515 ([place]. Jeor x 1.2-1.3, Wt: 63.3 kg) Protein: 65 - 75 gms (1-1.2 gm/kg) Fluid: 1900 - 2215 ml (usual fluid needs 30-35 ml/kg) Recommendations/Plans as noted above. (1-2) documented in this encounter Miscellaneous Notes * Care Plan - Johnnie Abad RN - 03/05/2024 4:57 PM CDT Patient Goals: The patient centered goal for this shift:: Discharge (03/05/24 1614). Evaluation of patient goal progress. Problem: Pain (Acute and Chronic) Goal: Verbalizes/displays adequate comfort level or baseline comfort level Outcome: Met Problem: Gastrointestinal Goal: Gastrointestinal functioning within defined limits Outcome: Met Problem: Discharge Planning Goal: No barriers to discharge Outcome: Met Reviwed discharge instructions with pt. Discussed diet, activity level, med list, pain mgmt. Also discussed specific instructions for pt including: F/U appointments. Pt awaiting transport at this time. Discharging to home. * Care Ludmila - Johnnie Abad RN - 03/04/2024 6:30 PM CDT Patient Goals: The patient centered goal for this shift:: Feel better. (03/04/24 1639). Evaluation of patient goal progress. Problem: Risk of Bleeding Goal: Absence of impaired coagulation signs and symptoms and active bleeding Outcome: Progressing Problem: Pain (Acute and Chronic) Goal: Verbalizes/displays adequate comfort level or baseline comfort level Outcome: Progressing Problem: Discharge Planning Goal: No barriers to discharge Outcome: Progressing Patient A&O, pleasant and cooperative, able to make needs known. Patient up independently, BR voiding QS. Patient tolerated 50% of lunch, poor appetite overall. Patient received scheduled medications per provider orders, pain controled with prn Oxycodone, VSS. Patient resting comfortably at this time with call light within reach. * Care Ludmila - Olesya Pike RN - 03/03/2024 12:35 PM CDT Patient Goals: The patient centered goal for this shift:: Rest (03/03/24 1058). Evaluation of patient goal progress: Met. Alert and oriented x4. Denies pain. Up independently in room. IV infusing per orders. Imodium for diarrhea given her provider order. Pt has not had a loose stool since this morning. Will obtain stoolsample for enteric pathogens if able. Problem: Risk of Bleeding Goal: Absence of impaired coagulation signs and symptoms and active bleeding Outcome: Progressing documented in this encounter Plan of Treatment Upcoming Encounters Date Type Department Care Team (Late st Contact Info) Description 03/17/2024 2:20 PM CDT Appointment [facility] [address] [place] [address] Megan Herring PA-C [address] [place] [address] Scheduled Referrals Name Type Priority Associated Diagnoses Orde r Schedule APPT WITH FAMILY MEDICINE REFERRAL Routine Diarrhea of presumed infectious origin Ordered: 03/05/2024 IP DISCHARGE FOLLOW-UP APPOINTMENTS REFERRAL Routine Hospital discharge follow-up Ordered: 03/05/2024 documented as of this encounter Procedures Procedure Name Priority Date/Time Associated Diagnosis Comments BASIC METABOLIC PANEL Routine 03/05/2024 7:03 AM CDT MAGNESIUM Routine 03/05/2024 7:03 AM CDT HOLD EDTA Routine 03/04/2024 7:03 AM CDT BASIC METABOLIC PANEL Routine 03/04/2024 7:03 AM CDT MAGNESIUM Routine 03/04/2024 7:03 AM CDT PHOSPHORUS Routine 03/04/2024 7:03 AM CDT ENTERIC PATHOGENS BY NUCLEIC ACID TESTING Routine 03/03/2024 12:01 PM CDT HEMOGRAM/DIFF Routine 03/03/2024 6:27 AM CDT COMPREHENSIVE METABOLIC PANEL Routine 03/03/2024 6:26 AM CDT MAGNESIUM Routine 03/03/2024 6:26 AM CDT PHOSPHORUS Routine 03/03/2024 6:26 AM CDT CLOSTRIDIUM DIFFICILE BY MOLECULAR DETECTION Routine 03/02/2024 4:17 PM CDT HOLD EDTA Routine 03/02/2024 6:40 AM CDT C REACTIVE PROTEIN Timed 03/02/2024 6: 40 AM CDT BASIC METABOLIC PANEL Routine 03/02/2024 6:40 AM CDT MAGNESIUM Add on 03/02/2024 6:40 AM CDT PHOSPHORUS Add on 03/01/2024 11:17 PM CDT documented in this encounter Results * (ABNORMAL) MAGNESIUM (03/05/2024 7:03 AM CDT) Pathologist [facility] Magnesium 1.6(L) 1.8 - 2.7 mg/dL 03/05/2024 7:30 AM CDT [facility] Blood BLOOD SPECIMEN / Unknown Venipuncture / Unknown 03/05/2024 7:03 AM CDT 03/05/2024 7:12 AM CDT Dirk Saldana DO CHEMISTRY LAE ROQUE [facility] Organization Address City/State/ZIP Co de Phone Number [facility] [address] [place] [id number] [place] [address] * (ABNORMAL) BASIC METABOLIC PANEL (03/05/2024 7:03 AM CDT) Pathologist [facility] Sodium 132(L) 134 - 143 mEq/L 03/05/2024 7:30 AM CDT [facility] Potassium 3.6 3.4 - 5.1 mEq/L 03/05/2024 7:30 AM CDT [facility] Chloride 92(L) 99 - 110 mEq/L 03/05/2024 7:30 AM CDT [facility] Carbon Dioxide 27 19 - 29 mEq/L 03/05/2024 7:[address] [facility] Anion Gap 13.0 3.0 - 15.0 mEq/L 03/05/2024 7:30 AM T [facility] Blood Urea Nitrogen 3(L) 5 - 24 mg/dL 03/05/2024 7:[address] [facility] Creatinine 0.48 0.40 - 1.00 mg/dL 03/05/2024 7:30 AM T [facility] Glomerular Filtration Rate 104 >60 mL/min/1. 73 m*2 03/05/2024 7:30 AM T [facility] Comment:Risk of cardiovascul ar disease increases when GFR is abnormal; persistently reduced GFR values are a specific indication of CKD. This calculation uses CKD- EPI 2020 equation without adjustment for race; it has not been validated in women. Calcium 8.7 8.4 - 10.5 mg/dL 03/05/2024 7:[address] [facility] Glucose 150(H) 70 - 99 mg/dL 03/05/2024 7:[address] [facility] Blood BLOOD SPECIMEN / Unknown Venipuncture / Unknown 03/05/2024 7:03 AM CDT 03/05/2024 7:12 AM CDT Narrative [facility] - 03/05/2024 7:30 AM CDT Current ADA criteria for Glucose: ?Normal: 70-99 mg/dL ?Impaired Fasting Glucose: 100-125 mg/dL ?Diabetes Mellitus: at or above 126 mg/dL The diagnosis of diabetes must be confirmed on a subsequent day by measuring Fasting Plasma Glucose, 2-hr PG or random plasma glucose (if symptoms are present). Dirk Saldana DO EC CHEMISTRY LAE ROQUE [facility] Organization Address City/State/ZIP Co de Phone Number [facility] [address] [place] [address] * HOLD PURPLE TUBE (03/04/2024 7:03 AM CDT) Blood BLOOD SPECIMEN / Unknown Venipuncture / Unknown 03/04/2024 7:03 AM CDT 03/04/2024 7:17 AM CDT Dirk Saldana DO HEMATOLOGY ORD ERABLES Performing Organization Address City/[facility]/ZIP Co de Phone Number [facility] [address] [place] [address] * (ABNORMAL) MAGNESIUM (03/04/2024 7:03 AM CDT) Magnesium 1.6(L) 1.8 - 2.7 mg/dL 03/04/2024 7:52 AM CDT [facility] Blood BLOOD SPECIMEN / Unknown Venipuncture / Unknown 03/04/2024 7:03 AM CDT 03/04/2024 7:17 AM CDT Dirk Saldana DO CHEMISTRY ORDE RABLES Performing Organization Address [facility] Co de Phone Number [facility] [address] [place] [address] * (ABNORMAL) BASIC METABOLIC PANEL (03/04/2024 7:03 AM CDT) Sodium 138 134 - 143 mEq/L 03/04/2024 7:52 AM CDT [facility] Potassium 3.6 3.4 - 5.1 mEq/L 03/04/2024 7:52 AM CDT [facility] Chloride 97(L) 99 - 110 mEq/L 03/04/2024 7:52 AM CDT [facility] Carbon Dioxide 29 19 - 29 mEq/L 03/04/2024 7:52 AM CDT [facility] Anion Gap 12.0 3.0 - 15.0 mEq/L 03/04/2024 7:52 AM CDT [facility] Blood Urea Nitrogen 3(L) 5 - 24 mg/dL 03/04/2024 7:52 AM CDT [facility] Creatinine 0.47 0.40 - 1.00 mg/dL 03/04/2024 7:52 AM CDT [facility] Glomerular Filtration Rate 105 >60 mL/min/1. 73 m*2 03/04/2024 7:52 AM CDT [facility] Comment:Risk of cardiovascul ar disease increases when GFR is abnormal; persistently reduced GFR values are a specific indication of CKD. This calculation uses CKD- EPI 2020 equation without adjustment for race; it has not been validated in women. Calcium 8.3(L) 8.4 - 10.5 mg/dL 03/04/2024 7:52 AM CDT [facility] Glucose 141(H) 70 - 99 mg/dL 03/04/2024 7:52 AM T [facility] Blood BLOOD SPECIMEN / Unknown Venipuncture / Unknown 03/04/2024 7:03 AM CDT 03/04/2024 7:17 AM CDT Narrative [facility] - 03/04/2024 7:52 AM CDT Current ADA criteria for Glucose: ?Normal: 70-99 mg/dL ?Impaired Fasting Glucose: 100-125 mg/dL ?Diabetes Mellitus: at or above 126 mg/dL The diagnosis of diabetes must be confirmed on a subsequent day by measuring Fasting Plasma Glucose, 2-hr PG or random plasma glucose (if symptoms are present). Dirk Saldana DO EC CHEMISTRY MIAH Gonzalez Organization Address City/State/ZIP Co de Phone Number [facility] [address] [place] [address], [facility] [[email or web address]] * PHOSPHORUS (03/04/2024 7:03 AM CDT) Phosphorus 4.0 2.5 - 4.6 mg/dL 03/04/2024 7:52 AM CDT [facility] Blood BLOOD SPECIMEN / Unknown Venipuncture / Unknown 03/04/2024 7:03 AM CDT 03/04/2024 7:17 AM CDT Dirk Saldana DO CHEMISTRY LAE ROQUE [facility] Organization Address City/State/ZIP Co de Phone Number [facility] [address] * ENTERIC PATHOGENS BY NUCLEIC ACID TESTING (03/03/2024 12:01 PM CDT) Pathologist [facility] Plesiomonas shigelloides Not Detected Not Detected 03/03/2024 5:19 PM CDT [facility] Salmonella species Not Detected Not Detected 03/03/2024 5:19 PM CDT [facility] Vibrio species Not Detected Not Detected 03/03/2024 5:19 PM CDT [facility] Vibrio cholerae Not Detected Not Detected 03/03/2024 5:19 PM CDT [facility] Yersinia enterocolitica Not Detected Not Detected 03/03/2024 5:19 PM CDT [facility] Enteroaggregative E. coli (EAEC) Not Detected Not Detected 03/03/2024 5:19 PM CDT [facility] Enteropathogenic E. coli (EPEC) Not Detected Not Detected 03/03/2024 5:19 PM CDT [facility] Enterotoxigenic E. coli (ETEC) Not Detected Not Detected 03/03/2024 5:19 PM CDT [facility] Shiga-like Toxin producing E. coli (STEC) Not Detected Not Detected 03/03/2024 5:19 PM CDT [facility] Shigella/Enteroinvas russell E. coli (EIEC) Not Detected Not Detected 03/03/2024 5:19 PM CDT [facility] Cyclospora cayetanensis Not Detected Not Detected 03/03/2024 5:19 PM CDT [facility] Entamoeba histolytica Not Detected Not Detected 03/03/2024 5:19 PM CDT [facility] Giardia Not Detected Not Detected 03/03/2024 5:19 PM CDT [facility] Adenovirus F40/41 Not Detected Not Detected 03/03/2024 5:19 PM CDT [facility] Astrovirus Not Detected Not Detected 03/03/2024 5:19 PM CDT [facility] Norovirus GI/GII Not Detected Not Detected 03/03/2024 5:19 PM CDT [facility] Rotavirus Not Detected Not Detected 03/03/2024 5:19 PM CDT [facility] Sapovirus Not Detected Not Detected 03/03/2024 5:19 PM CDT [facility] Campylobacter species Not Detected Not Detected 03/03/2024 5:19 PM CDT [facility] Cryptosporidium species Not Detected Not Detected 03/03/2024 5:19 PM CDT [facility] Stool FECES / Unknown Non-blood collection / Unknown 03/03/2024 12:01 PM CDT 03/03/2024 12:09 PM CDT [facility] - 03/03/2024 5:19 PM CDT Test detects target nucleic acid by multiplex polymerase chain reaction (PCR) on the [employer] System. Dirk CHAVEZ MICROBIOLOGY - GENERAL ORDERABLES Performing Organization Address City/State/[facility] Co de Phone Number [facility] [address] * (ABNORMAL) HEMOGRAM/DIFFERENTIAL (03/03/2024 6:27 AM CDT) Pathologist [facility] WBC 10.0 3.2 - 11.0 10*9/L 03/03/2024 6:42 AM CDT [facility] RBC 2.27(L) 3.77 - 5.24 10*12/L 03/03/2024 6:42 AM CDT [facility] HGB 9.0(L) 11.2 - 15.5 g/dL 03/03/2024 6:42 AM CDT [facility] HCT 26.0(L) 34.3 - 46.0 % 03/03/2024 6:42 [facility] MCV 114.5(H) 81.4 - 99.0 fL 03/03/2024 6:[address] [facility] MCH 39.6(H) 26.7 - 33.1 pg 03/03/2024 6:[address] [facility] MCHC 34.6 31.6 - 35.5 g/dL 03/03/2024 6:[address] [facility] RDW 16.9(H) 11.3 - 14.6 % 03/03/2024 6:[address] [facility] PLT 305 130 - 375 10*9/L 03/03/2024 6:[address] [facility] Neutrophils % 78.3 % 03/03/2024 6:[address] [facility] Lymphocytes % 13.1 % 03/03/2024 6:[address] [facility] Monocytes % 7.2 % 03/03/2024 6:[address] [facility] Eosinophils % 0.9 % 03/03/2024 6:[address] [facility] Basophils % 0.1 % 03/03/2024 6:[address] [facility] Immature Granulocytes % 0.4 % 03/03/2024 6:[address] [facility] Neutrophils Absolute 7.8(H) 1.5 - 7.6 10*9/L 03/03/2024 6:42 AM CDT [facility] Lymphocytes Absolute 1.3 0.8 - 3.3 10*9/L 03/03/2024 6:[address] [facility] Monocytes Absolute 0.7 0.2 - 0.9 10*9/L 03/03/2024 6:[address] [facility] Eosinophils Absolute 0.1 0.0 - 0.4 10*9/L 03/03/2024 6:42 AM CDT [facility] Basophils Absolute 0.0 0.0 - 0.1 10*9/L 03/03/2024 6:42 AM CDT [facility] Immature Granulocytes Absolute 0.04 0.00 - 0.06 10*9/L 03/03/2024 6:42 AM CDT [facility] Blood BLOOD SPECIMEN / Unknown Venipuncture / Unknown 03/03/2024 6:27 AM CDT 03/03/2024 6:37 AM CDT Parmjit Hurley MD HEMATOLOGY ORDSriram NEVAREZ Performing Organization Address City/[facility]/ZIP Co de Phone Number [facility] [address] [place] [address] * (ABNORMAL) MAGNESIUM (03/03/2024 6:26 AM CDT) Pathologist [facility] Magnesium 1.6(L) 1.8 - 2.7 mg/dL 03/03/2024 7:03 AM CDT [facility] Blood BLOOD SPECIMEN / Unknown Venipuncture / Unknown 03/03/2024 6:26 AM CDT 03/03/2024 6:37 AM CDT Dirk Saldana DO CHEMISTRY MIAH NEVAREZ [facility] [address] [place] [address] * (ABNORMAL) COMPREHENSIVE METABOLIC PANEL (03/03/2024 6:26 AM CDT) Sodium 137 134 - 143 mEq/L 03/03/2024 7:03 AM CDT [facility] Potassium 3.1(L) 3.4 - 5.1 mEq/L 03/03/2024 7:03 AM CDT [facility] Chloride 95(L) 99 - 110 mEq/L 03/03/2024 7:[address] [facility] Carbon Dioxide 31(H) 19 - 29 mEq/L 03/03/2024 7:[address] [facility] Anion Gap 11.0 3.0 - 15.0 mEq/L 03/03/2024 7:[address] [facility] Blood Urea Nitrogen 6 5 - 24 mg/dL 03/03/2024 7:[address] [facility] Creatinine 0.48 0.40 - 1.00 mg/dL 03/03/2024 7:[address] [facility] Glomerular Filtration Rate 104 >60 mL/min/1. 73 m*2 03/03/2024 7:[address] [facility] Comment:Risk of cardiovascul ar disease increases when GFR is abnormal; persistently reduced GFR values are a specific indication of CKD. This calculation uses CKD- EPI 202 equation without adjustment for race; it has not been validated in women. Calcium 8.3(L) 8.4 - 10.5 mg/dL 03/03/2024 7:[address] [facility] Glucose 150(H) 70 - 99 mg/dL 03/03/2024 7:[address] [facility] Protein, Total 5.7(L) 6.0 - 8.0 g/dL 03/03/2024 7:[address] [facility] Albumin 2.1(L) 3.5 - 5.0 g/dL 03/03/2024 7:[address] [facility] Alkaline Phosphatase 348(H) 40 - 150 IU/L 03/03/2024 7:[address] [facility] Aspartate Aminotransferase 94(H) 10 - 40 IU/L 03/03/2024 7:[address] [facility] Alanine Aminotransferase 28 6 - 31 IU/L 03/03/2024 7:[address] [facility] Bilirubin, Total 0.7 0.2 - 1.2 mg/dL 03/03/2024 7:03 AM CDT [facility] Blood BLOOD SPECIMEN / Unknown Venipuncture / Unknown 03/03/2024 6:26 AM CDT 03/03/2024 6:37 AM CDT Narrative [facility] - 03/03/2024 7:03 AM CDT Current ADA criteria for Glucose: ?Normal: 70-99 mg/dL ?Impaired Fasting Glucose: 100-125 mg/dL ?Diabetes Mellitus: at or above 126 mg/dL The diagnosis of diabetes must be confirmed on a subsequent day by measuring Fasting Plasma Glucose, 2-hr PG or random plasma glucose (if symptoms are present). Parmjit Hurley MD EC CHEMISTRY ORDER NICKY Performing Organization Address City/[facility]/ZIP Co de Phone Number [facility] [address] [place] [address] * (ABNORMAL) PHOSPHORUS (03/03/2024 6:26 AM CDT) Phosphorus 2.3(L) 2.5 - 4.6 mg/dL 03/03/2024 7:03 AM CDT [facility] Blood BLOOD SPECIMEN / Unknown Venipuncture / Unknown 03/03/2024 6:26 AM CDT 03/03/2024 6:37 AM CDT Parmjit Hurley MD EC CHEMISTRY ORDER NICKY [facility] [address] [place] [address] * CLOSTRIDIUM DIFFICILE BY MOLECULAR DETECTION (03/02/2024 4:17 PM CDT) Clostridium difficile Negative Negative 03/02/2024 8:12 PM CDT [facility] Clostridium difficile strain 027 Presumptive Negative Presumptive Negative 03/02/2024 8:12 PM CDT [facility] Stool FECES / Unknown Non-blood collection / Unknown 03/02/2024 4:17 PM CDT 03/02/2024 4:26 PM CDT Narrative [facility] - 03/02/2024 8:12 PM CDT Results from the Xpert C. difficile/Epi Assay should be interpreted in conjunction with clinical findings and other laboratory data. Detection of nucleic acid in stools confirms the presence of these organisms in diarrheal patients but may not indicate that C. difficile is the etiologic agent of the diarrhea. In immunocompromised pediatric patients positive results may reflect asymptomatic carriage of C. difficile/Epi. ?? Test detects target RNA/DNA by real-time polymerase chain reaction (PCR) on the [facility] [employer] System. ?? Parmjit Hurley MD MICROBIOLOGY - GENERAL ORDERABLES Performing Organization Address [facility] Co de Phone Number [facility] [address] [place] [address] * MAGNESIUM (03/02/2024 6:40 AM CDT) [facility] Magnesium 2.1 1.8 - 2.7 mg/dL 03/02/2024 10:29 AM CDT [facility] Blood BLOOD SPECIMEN / Unknown Venipuncture / Unknown 03/02/2024 6:40 AM CDT 03/02/2024 6:57 AM CDT Dirk Saldana DO CHEMISTRY ORDE ROQUE Performing Organization Address City/[facility] Co de Phone Number [facility] [address] [place] [address] * HOLD PURPLE TUBE (03/02/2024 6:40 AM CDT) Blood BLOOD SPECIMEN / Unknown Venipuncture / Unknown 03/02/2024 6:40 AM CDT 03/02/2024 6:57 AM CDT Parmjit Hurley MD HEMATOLOGY ORDE ROQUE Performing Organization Address City/[facility]/ZIP Co de Phone Number [facility] [address] [place] [address] * (ABNORMAL) C-REACTIVE PROTEIN (03/02/2024 6:40 AM CDT) [facility] C-Reactive Protein 9.0(H) 0.0 - 0.8 mg/dL 03/02/2024 7:17 AM CDT [facility] Blood BLOOD SPECIMEN / Unknown Venipuncture / Unknown 03/02/2024 6:40 AM CDT 03/02/2024 6:57 AM CDT Parmjit Hurley MD EC CHEMISTRY ORDER NICKY [address] * (ABNORMAL) BASIC METABOLIC PANEL (03/02/2024 6:40 AM CDT) [facility] Sodium 140 134 - 143 mEq/L 03/02/2024 7:17 AM CDT [facility] Potassium 3.1(L) 3.4 - 5.1 mEq/L 03/02/2024 7:17 AM CDT [facility] Chloride 94(L) 99 - 110 mEq/L 03/02/2024 7:17 AM CDT [facility] Carbon Dioxide 32(H) 19 - 29 mEq/L 03/02/2024 7:17 AM CDT [facility] Anion Gap 14.0 3.0 - 15.0 mEq/L 03/02/2024 7:17 AM CDT [facility] Blood Urea Nitrogen 8 5 - 24 mg/dL 03/02/2024 7:17 AM CDT [facility] Creatinine 0.50 0.40 - 1.00 mg/dL 03/02/2024 7:17 AM CDT [facility] Glomerular Filtration Rate 103 >60 mL/min/1. 73 m*2 03/02/2024 7:17 AM CDT [facility] Comment:Risk of cardiovascul ar disease increases when GFR is abnormal; persistently reduced GFR values are a specific indication of CKD. This calculation uses CKD- EPI 2020 equation without adjustment for race; it has not been validated in women. Calcium 8.2(L) 8.4 - 10.5 mg/dL 03/02/2024 7:17 AM CDT [facility] Glucose 133(H) 70 - 99 mg/dL 03/02/2024 7:17 AM CDT [facility] Blood BLOOD SPECIMEN / Unknown Venipuncture / Unknown 03/02/2024 6:40 AM CDT 03/02/2024 6:57 AM CDT Narrative [facility] - 03/02/2024 7:17 AM CDT Current ADA criteria for Glucose: ?Normal: 70-99 mg/dL ?Impaired Fasting Glucose: 100-125 mg/dL ?Diabetes Mellitus: at or above 126 mg/dL The diagnosis of diabetes must be confirmed on a subsequent day by measuring Fasting Plasma Glucose, 2-hr PG or random plasma glucose (if symptoms are present). Parmjit Hurley MD EC CHEMISTRY ORDER NICKY [facility] [address] * (ABNORMAL) PHOSPHORUS (03/01/2024 11:17 PM CDT) Phosphorus 2.3(L) 2.5 - 4.6 mg/dL 03/02/2024 4:14 AM CDT [facility] Blood BLOOD SPECIMEN / Unknown Venipuncture / Unknown 03/01/2024 11:17 PM CDT 03/01/2024 11:19 PM CDT Parmjit Hurley MD EC CHEMISTRY ORDER NICKY [facility] [address] [place], [place] [id number] documented in this encounter Visit Diagnoses Diagnosis Diarrhea of presumed infectious origin- Primary Diarrhea of presumed infectious origin Daily consumption of alcohol Hospital discharge follow-up Other follow-up examination Essential hypertension Unspecified essential hypertension 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) MONIQUE (generalized anxiety disorder) Generalized anxiety disorder Hypokalemia Hypopotassemia Hypomagnesemia Disorders of magnesium metabolism documented in this encounter Administered Medications Inactive Administered Medications Medication Order MAR Action Action Date Dose Rate Site acetaminophen (Tylenol) tablet 1,000 mg 1,000 mg, Oral, EVERY 6 HOURS NEEDED, Starting on Thu03/02/24 at 0356, Until Thu03/05/24 at 2158, Mild Pain (1-3), Fever, Headache Given 03/03/2024 10:05 PM CDT 1,000 mg diazePAM (Valium) tablet 5 mg 5 mg, Oral, ONCE, 1 dose, On Thu03/05/24 at 0130 Given 03/05/2024 1:16 AM CDT 5 mg enoxaparin (Lovenox) 40 mg/0.4 mL injection 40 mg 40 mg, Subcutaneous, ONCE DAILY, First dose on Thu03/03/24 at 0800, Until Discontinued Given 03/05/2024 8:19 AM CDT 40 mg Given 03/04/2024 8:09 AM CDT 40 mg folic acid (Folvite) injection 1 mg 1 mg, IV Push, ONCE DAILY, 3 doses, First dose on Thu03/02/24 at 0800, Last dose on Thu03/04/24 at 0800 Given 03/04/2024 8:09 AM CDT 1 mg Given 03/02/2024 10:44 AM CDT 1 mg lactated ringers infusion Intravenous, at 125 mL/hr, CONTINUOUS, Starting on Thu03/02/24 at 0400, Until Thu03/02/24 at 2120 New Bag 03/02/2024 5:21 AM CDT 125 mL/hr loperamide (Imodium) capsule 4 mg 4 mg, Oral, 4 TIMES DAILY, First dose on Thu03/03/24 at 1000, Until Discontinued Given 03/04/2024 11:40 AM CDT 4 mg Given 03/04/2024 8:09 AM CDT 4 mg Given 03/03/2024 8:56 PM CDT 4 mg Given 03/03/2024 5:51 PM CDT 4 mg Given 03/03/2024 11:14 AM CDT 4 mg magnesium oxide tablet 400 mg 400 mg, Oral, ONCE DAILY, First dose on Thu03/05/24 at 1000, Until Discontinued Given 03/05/2024 9:57 AM CDT 400 mg magnesium sulfate 2 g in 50 mL water for infusion (pre-mix) 2 g, Intravenous, at 25 mL/hr, ONCE, 1 dose, On Thu03/02/24 at 0400 [facility] 03/02/2024 5:21 AM CDT 2 g 25 mL/hr magnesium sulfate 2 g in 50 mL water for infusion (pre-mix) 2 g, Intravenous, at 25 mL/hr, ONCE, 1 dose, On Thu03/03/24 at 0930 [facility] 03/03/2024 11:11 AM CDT 2 g 25 mL/hr magnesium sulfate in water infusion 4 g 4 g, Intravenous, at 25 mL/hr, ONCE, 1 dose, On Thu03/04/24 at 0930 [facility] 03/04/2024 9:56 AM CDT 4 g 25 mL/hr magnesium sulfate in water infusion 4 g 4 g, Intravenous, at 25 mL/hr, ONCE, 1 dose, On Thu03/05/24 at 1000 [facility] 03/05/2024 10:05 AM CDT 4 g 25 mL/hr melatonin tablet 6 mg 6 mg, Oral, AT BEDTIME NEEDED, Starting on Thu03/02/24 at 0356, Until 03/05/24 at 2158, Sleep Given 03/04/2024 11:14 PM CDT 6 mg Given 03/03/2024 8:55 PM CDT 6 mg metoprolol succinate (Toprol-XL) 24 hour tablet 50 mg 50 mg, Oral, ONCE DAILY, First dose on Thu03/02/24 at 0800, Until Discontinued Given 03/05/2024 8:18 AM CDT 50 mg Given 03/04/2024 8:09 AM CDT 50 mg Given 03/03/2024 8:43 AM CDT 50 mg Given 03/02/2024 9:13 AM CDT 50 mg nicotine (Nicoderm CQ) 14 MG/24HR patch 1 Patch 1 Patch, Transdermal, EVERY 24 HOURS NEEDED, Starting on Thu03/02/24 at 0356, Until 03/05/24 at 2158, Smoking cessation, Other, Cravings/pt request Patch Applied 03/04/2024 6:40 PM CDT 1 Patch Right Lower Back Patch Applied 03/03/2024 6:50 PM CDT 1 Patch Left Lower Back Patch Applied 03/02/2024 4:15 PM CDT 1 Patch Left Deltoid ondansetron (Zofran ODT) disintegrating tablet 4 mg 4 mg, Oral, EVERY 6 HOURS NEEDED, Starting on Thu03/02/24 at 0356, Until 03/05/24 at 2158, Nausea, Vomiting ondansetron (Zofran) injection 4 mg 4 mg, IV Push, EVERY 6 HOURS NEEDED, Starting on Thu03/02/24 at 0356, Until 03/05/24 at 2158, Nausea, Vomiting oxyCODONE (Roxicodone) immediate release tablet 5 mg 5 mg, Oral, EVERY 4 HOURS NEEDED, 3 doses, Starting on Thu03/02/24 at 0356, Until 03/05/24 at 0818, Moderate Pain (4-6), Severe Pain (7-10) Given 03/05/2024 8:18 AM CDT 5 mg Given 03/04/2024 8:09 AM CDT 5 mg Given 03/03/2024 10:36 PM CDT 5 mg phosphorus (K Phos Neutral) tablet 500 mg 500 mg, Oral, 3 TIMES DAILY, 6 doses, First dose on Thu03/02/24 at 0800, Last dose on Thu03/03/24 at 2000 Given 03/03/2024 8:01 PM CDT 500 mg Given 03/03/2024 1:28 PM CDT 500 mg Given 03/03/2024 8:43 AM CDT 500 mg Given 03/02/2024 9:47 PM CDT 500 mg Given 03/02/2024 1:36 PM CDT 500 mg Given 03/02/2024 9:12 AM CDT 500 mg potassium chloride (Klor-Con) packet 40 mEq 40 mEq, Oral, EVERY 2 HOURS, 2 doses, First dose on Thu03/02/24 at 0400, Last dose on Thu03/02/24 at 0600 Given 03/02/2024 5:21 AM CDT 40 mEq potassium chloride (Klor-Con) packet 40 mEq 40 mEq, Oral, ONCE, 1 dose, On Thu03/02/24 at 1200 Given 03/02/2024 12:30 PM CDT 40 mEq potassium chloride 10 mEq/100 mL infusion 10 mEq 10 mEq, Intravenous, at 50 mL/hr, EVERY 2 HOURS, 2 doses, First dose (after last modification) on Dipti 03/03/24 at 1330, Last dose on Thu03/03/24 at 1530 New Bag 03/03/2024 3:16 PM CDT 10 mEq 50 mL/hr New Bag 03/03/2024 1:26 PM CDT 10 mEq 50 mL/hr potassium chloride 10 mEq/100 mL infusion 10 mEq 10 mEq, Intravenous, at 50 mL/hr, EVERY 2 HOURS, 2 doses, First dose (after last reorder) on Thu03/03/24 at 1730, Last dose on Thu03/03/24 at 1930 New Bag 03/03/2024 8:01 PM CDT 10 mEq 50 mL/hr New Bag 03/03/2024 5:51 PM CDT 10 mEq 50 mL/hr plus vitamin with folic acid 1 mg tablet 1 Tablet 1 Tablet, Oral, ONCE DAILY, First dose on Thu03/02/24 at 0800, Until Discontinued Given 03/05/2024 8:18 AM CDT 1 Ta blet Given 03/04/2024 8:09 AM CDT 1 Tablet Given 03/03/2024 8:43 AM CDT 1 Tablet Given 03/02/2024 9:13 AM CDT 1 Tablet rifAXIMin (Xifaxan) tablet 550 mg 550 mg, Oral, 2 TIMES DAILY, First dose on Thu03/02/24 at 0800, Until Discontinued, Indication? suspected infection, Antibiotic Indication for Use: C. difficile Given 03/02/2024 9:48 PM CDT 550 mg Given 03/02/2024 9:13 AM CDT 550 mg simethicone (Gas-X) chewable tablet 160 mg 160 mg, Chew, EVERY 6 HOURS NEEDED, Starting on Dipti 03/03/24 at 2009, Until 03/05/24 at 2158, Flatulence, Other, gas pain Given 03/05/2024 8:17 AM CDT 160 mg Given 03/04/2024 6:45 PM CDT 160 mg Given 03/04/2024 8:24 AM CDT 160 mg Given 03/03/2024 8:56 PM CDT 160 mg sodium chloride 0.9 % 1,000 mL with potassium chloride 20 mEq infusion 1,000 mL 1,000 mL, Intravenous, at 150 mL/hr, ONCE, 1 dose, On Thu03/05/24 at 1000 New Bag 03/05/2024 10:04 AM CDT 1,000 mL 150 mL/hr sodium chloride 0.9% IV FLUSH (NS) SYRINGE 3 mL 3 mL, IV Flush, EVERY 8 HOURS, First dose on Thu03/02/24 at 0600, Until Discontinued Given 03/05/2024 8:19 AM CDT 3 mL Given 03/04/2024 10:13 PM CDT 3 mL Given 03/04/2024 3:00 PM CDT 3 mL Given 03/04/2024 6:04 AM CDT 3 mL Given 03/03/2024 1:29 PM CDT 3 mL Given 03/02/2024 12:31 PM CDT 3 mL Given 03/02/2024 5:22 AM CDT 3 mL sodium chloride 0.9% IV FLUSH (NS) SYRINGE 3 mL 3 mL, IV Flush, NEEDED, Starting on Thu03/02/24 at 0356, Until Thu03/05/24 at 2158, Other, flushes Given 03/02/2024 11:52 AM CDT 3 mL Given 03/02/2024 5:21 AM CDT 3 mL thiamine (B-1) injection 100 mg 100 mg, IV Push, ONCE DAILY, 3 doses, First dose on Thu03/02/24 at 0800, Last dose on Thu03/04/24 at 0800 Given 03/04/2024 8:09 AM CDT 100 mg Given 03/02/2024 10:43 AM CDT 100 mg thiamine (Vitamin B-1) tablet 100 mg 100 mg, Oral, ONCE DAILY, First dose (after last modification) on Thu03/05/24 at 0800, Until Discontinued Given 03/05/2024 8:18 AM CDT 100 mg vancomycin (Vancocin) capsule 125 mg 125 mg, Oral, 4 TIMES DAILY, 40 doses, First dose on Thu03/02/24 at 0800, Last dose on Thu03/11/24 at 2200, Indication? documented infection, Antibiotic Indication for Use: Clostridium difficile Given 03/02/2024 9:48 PM CDT 125 mg Given 03/02/2024 5:31 PM CDT 125 mg Given 03/02/2024 12:30 PM CDT 125 mg Given 03/02/2024 9:13 AM CDT 125 mg documented in this encounter Discontinued Medications Medication Sig Discontinue Reason Start Date End Da te vancomycin (Vancocin) 125 MG capsuleIndications:Cl ostridioides Difficile Colitis Take 1 Capsule by mouth four times a day for 7 days, THEN 1 Capsule two times a day for 7 days, THEN 1 Capsule one time a day for 7 days, THEN 1 Capsule every 48 hours for 14 days. Indications: Colon Inflammation due to Clostridium Bacteria Overgrowth Other 02/12/2024 03/05/2024 documented as of this encounter Active and Recently Administered Medications Times are shown in CDT. Scheduled Medication Order 03/03/2024 03/04/2024 03/05/2024 diazePAM (Valium) tablet 5 mg (COMPLETED) 5 mg, Oral, ONCE, 1 dose, On 03/05/24 at 0130 0116 (Given - Provider: Syd Meneses RN) enoxaparin (Lovenox) 40 mg/0.4 mL injection 40 mg 40 mg, Subcutaneous, ONCE DAILY, First dose on Dipti 03/03/24 at 0800, Until Discontinued 0842 (Not Given - Provider: Olesya Pike RN - Reason: Patient/Family refused) 0809 (Given - Provider: Johnnie Abad RN) 0819 (Given - Provider: Johnnie Abad RN) folic acid (Folvite) injection 1 mg () 1 mg, IV Push, ONCE DAILY, 3 doses, First dose on Thu03/02/24 at 0800, Last dose on Thu03/04/24 at 0800 0901 (Hold Single Dose - Provider: Olesya Pike RN - Reason: Loss of IV access) 0809 (Given - Provider: Johnnie Abad RN) loperamide (Imodium) capsule 4 mg 4 mg, Oral, 4 TIMES DAILY, First dose on Dipti 03/03/24 at 1000, Until Discontinued 1114 (Given - Provider: Olesya Pike RN)1751 (Given - Provider: Olesya Pike RN)2056 (Given - Provider: Mona Kelly RN) 0809 (Given - Provider: Johnnie Abad RN)1140 (Given - Provider: Johnnie Abad RN)1840 (Not Given - Provider: Johnnie Abad RN - Reason: Patient/Family refused)2213 (Not Given - Provider: Syd Meneses RN - Reason: Patient/Family refused) 0814 (Not Given - Provider: Johnnie Abad RN - Reason: Patient/Family refused)1112 (Not Given - Provider: Johnnie Abad RN - Reason: Patient/Family refused)1726 (Not Given - Provider: Johnnie Abad RN - Reason: Patient/Family refused) magnesium oxide tablet 400 mg 400 mg, Oral, ONCE DAILY, First dose on 03/05/24 at 1000, Until Discontinued 0957 (Given - Provider: Johnnie Abad RN) magnesium sulfate 2 g in 50 mL water for infusion (pre-mix) (COMPLETED) 2 g, Intravenous, at 25 mL/hr, ONCE, 1 dose, On Dipti 03/03/24 at 0930 1111 (New Bag - Provider: Doreen Teran RN)1317 (Stopped - Provider: Olesya Pike RN) magnesium sulfate in water infusion 4 g (COMPLETED) 4 g, Intravenous, at 25 mL/hr, ONCE, 1 dose, On Thu03/04/24 at 0930 0956 (New Bag - Provider: Johnnie Abad RN)1500 (Stopped - Provider: Johnnie Abad RN) magnesium sulfate in water infusion 4 g (COMPLETED) 4 g, Intravenous, at 25 mL/hr, ONCE, 1 dose, On 03/05/24 at 1000 1005 (New Bag - Provider: Johnnie Abad RN)1406 (Stopped - Provider: Johnnie Abad RN) metoprolol succinate (Toprol-XL) 24 hour tablet 50 mg 50 mg, Oral, ONCE DAILY, First dose on Thu03/02/24 at 0800, Until Discontinued 0843 (Given - Provider: Olesya Pike RN) 0809 (Given - Provider: Johnnie Abad RN) 0818 (Given - Provider: Johnnie Abad RN) phosphorus (K Phos Neutral) tablet 500 mg (COMPLETED) 500 mg, Oral, 3 TIMES DAILY, 6 doses, First dose on Thu03/02/24 at 0800, Last dose on Thu03/03/24 at 2000 0843 (Given - Provider: Olesya Pike RN)1328 (Given - Provider: Olesya Pike RN)2000 (Given - Provider: Mona Kelly RN) potassium chloride 10 mEq/100 mL infusion 10 mEq (COMPLETED) 10 mEq, Intravenous, at 50 mL/hr, EVERY 2 HOURS, 2 doses, First dose (after last modification) on Thu03/03/24 at 1330, Last dose on Thu03/03/24 at 1530 1326 (New Bag - Provider: Olesya Pike RN)1515 (Stopped - Provider: Olesya Pike RN)1516 (New Bag - Provider: Olesya Pike RN)1751 (Stopped - Provider: Olesya Pike RN) potassium chloride 10 mEq/100 mL infusion 10 mEq (COMPLETED) 10 mEq, Intravenous, at 50 mL/hr, EVERY 2 HOURS, 2 doses, First dose (after last reorder) on Thu03/03/24 at 1730, Last dose on Thu03/03/24 at 1930 1751 (New Bag - Provider: Olesya Pike RN)1999 (Stopped - Provider: Mona Kelly RN)2000 (New Bag - Provider: Mona Kelly RN) 9 (Stopped - Provider: Mona Kelly RN) plus vitamin with folic acid 1 mg tablet 1 Tablet 1 Tablet, Oral, ONCE DAILY, First dose on Thu03/02/24 at 0800, Until Discontinued 0843 (Given - Provider: Olesya Pike RN) 0809 (Given - Provider: Johnnie Abad RN) 0818 (Given - Provider: Johnnie Abad RN) sodium chloride 0.9 % 1,000 mL with potassium chloride 20 mEq infusion 1,000 mL (COMPLETED) 1,000 mL, Intravenous, at 150 mL/hr, ONCE, 1 dose, On Thu24 at 1000 1004 (New Bag - Provider: Johnnie Abad, JAMARI)1627 (Stopped - Provider: Johnnie Abad RN) sodium chloride 0.9% IV FLUSH (NS) SYRINGE 3 mL 3 mL, IV Flush, EVERY 8 HOURS, First dose on Thu03/02/24 at 0600, Until Discontinued 0542 (Not Given - Provider: Samaria Ewing RN - Reason: Patient sleeping)1329 (Given - Provider: Olesya Pike RN)2114 (Not Given - Provider: Mona Kelly RN - Reason: IV Infusing) 0604 (Given - Provider: Mona Kelly, RN)1500 (Given - Provider: Johnnie Abad RN)2213 (Given - Provider: Syd Meneses RN) 0819 (Given - Provider: Johnnie Abad RN)1348 (Not Given - Provider: Johnnie Abad RN - Reason: IV Infusing) thiamine (B-1) injection 100 mg () 100 mg, IV Push, ONCE DAILY, 3 doses, First dose on Thu03/02/24 at 0800, Last dose on Thu03/04/24 at 0800 0843 (Not Given - Provider: Olesya Pike RN - Reason: Loss of IV access) 0809 (Given - Provider: Johnnie Abad RN) thiamine (Vitamin B-1) tablet 100 mg 100 mg, Oral, ONCE DAILY, First dose (after last modification) on 03/05/24 at 0800, Until Discontinued 0818 (Given - Provider: Johnnie Abad RN) PRN Medication Order 03/03/2024 03/04/2024 03/05/2024 acetaminophen (Tylenol) tablet 1,000 mg 1,000 mg, Oral, EVERY 6 HOURS NEEDED, Starting on Thu03/02/24 at 0356, Until 03/05/24 at 2158, Mild Pain (1-3), Fever, Headache 2204 (Given - Provider: Mona Kelly RN) calcium carbonate (Tums) chewable tablet 500 mg 500 mg, Chew, EVERY 4 HOURS NEEDED, Starting on Thu03/02/24 at 0356, Until 03/05/24 at 2158, Heartburn melatonin tablet 6 mg 6 mg, Oral, AT BEDTIME NEEDED, Starting on Thu03/02/24 at 0356, Until 03/05/24 at 2158, Sleep 205 (Given - Provider: Mona Kelly RN) 231 (Given - Provider: Syd Meneses RN) nicotine (Nicoderm CQ) 14 MG/24HR patch 1 Patch 1 Patch, Transdermal, EVERY 24 HOURS NEEDED, Starting on Thu03/02/24 at 0356, Until 03/05/24 at 2158, Smoking cessation, Other, Cravings/pt request 1516 (Patch Removed - Provider: Olesya Pike RN)1850 (Patch Applied - Provider: Olesya Pike RN) 1837 (Patch Removed - Provider: Johnnie Abad RN)1840 (Patch Applied - Provider: Johnnie Abad RN) 1757 (Due: Patch Removed - Provider: Automatic Discharge Provider - Comment: Time automatically adjusted from order being discontinued) nicotine polacrilex (Nicorette) gum 4 mg 4 mg, Chew, EVERY 1 HOUR NEEDED, Starting on Thu03/02/24 at 0356, Until 03/05/24 at 2158, Smoking cessation, Other, Cravings ondansetron (Zofran ODT) disintegrating tablet 4 mg(Linked Group 1) 4 mg, Oral, EVERY 6 HOURS NEEDED, Starting on Thu03/02/24 at 0356, Until 03/05/24 at 2158, Nausea, Vomiting ondansetron (Zofran) injection 4 mg(Linked Group 1) 4 mg, IV Push, EVERY 6 HOURS NEEDED, Starting on Thu03/02/24 at 0356, Until 03/05/24 at 2158, Nausea, Vomiting oxyCODONE (Roxicodone) immediate release tablet 5 mg (COMPLETED) 5 mg, Oral, EVERY 4 HOURS NEEDED, 3 doses, Starting on Thu03/02/24 at 0356, Until 03/05/24 at 0818, Moderate Pain (4-6), Severe Pain (7-10) 2236 (Given - Provider: Mona Kelly RN) 0809 (Given - Provider: Johnnie Abad RN) 0818 (Given - Provider: Johnnie Abad, JAMARI) simethicone (Gas-X) chewable tablet 160 mg 160 mg, Chew, EVERY 6 HOURS NEEDED, Starting on Dipti 03/03/24 at 2008, Until 03/05/24 at 2158, Flatulence, Other, gas pain 2055 (Given - Provider: Mona Kelly RN) 0824 (Given - Provider: Johnnie Abad, RN)184 (Given - Provider: Johnnie Abad, JAMARI) 0817 (Given - Provider: Johnnie Abad, RN) sodium chloride 0.9% IV FLUSH (NS) SYRINGE 3 mL 3 mL, IV Flush, NEEDED, Starting on 03/02/24 at 0356, Until 03/05/24 at 2158, Other, flushes sodium chloride 0.9% IV LINE FLUSH (NS) BAG 30 mL 30 mL, IV Flush, SEE ADMINISTRATION INSTRUCTIONS, Starting on Thu03/02/24 at 0356, Until 03/05/24 at 2158, Other, priming/flush fluid Linked Groups Order Group 1: ondansetron (Zofran) injection 4 mgJump to med 4 mg, IV Push, EVERY 6 HOURS NEEDED, Starting on 03/02/24 at 0356, Until 03/05/24 at 2158, Nausea, Vomiting Or ondansetron (Zofran ODT) disintegrating tablet 4 mgJump to med 4 mg, Oral, EVERY 6 HOURS NEEDED, Starting on Thu03/02/24 at 0356, Until 03/05/24 at 2158, Nausea, Vomiting documented in this encounter Orders Medications Ordered That Chad ht Not Have Been Administered Count Last Ordered Date First Ordered Date potassium chloride 10 mEq/10 0 mL infusion 10 mEq 2 03/03/2024 03/02/2024 calcium carbonate (Tums) gildardo wable tablet 500 mg 1 03/02/2024 nicotine polacrilex (Nicorette) gum 4 mg 1 03/02/2024 ondansetron (Zofran ODT) dis integrating tablet 4 mg 1 03/02/2024 ondansetron (Zofran) injection 4 mg 1 03/02 potassium chloride (Klor-Con ) packet 40 mEq 1 03/02/2024 sodium chloride 0.9% IV LINE FLUSH (NS) BAG 30 mL 1 03/02/2024 thiamine (Vitamin B-1) tablet 100 mg 1 02/13 vancomycin (Vancocin) capsule 125 mg 3 02/13 Admission Count Last Ordered Date First Orde red Date ADMIT TO INPATIENT 1 03/02/2024 Discharge Count Last Ordered Date First Orde red Date DISCHARGE PATIENT 1 03/05/2024 Consult Count Last Ordered Date First Orde red Date IP CONSULT TO NUTRITION SERVICES 1 03/04/20 Order Management Count Last Ordered Date First Ordered Date ORDERS MANAGEMENT AUTO D/C CDIFF ON 1 03/02/2024 documented in this encounter Additional Health Concerns Infection Onset Date Last Indicated Resolved Time C difficile 01/13/2024 01/13/2024 03/02/2024 8:01 AM CDT History of C difficile 01/13/2024 01/13/2024 R/O C. Diff 03/02/2024 03/02/2024 03/02/2024 8:12 PM CDT R/O Enteric Pathogens 03/03/2024 03/03/20242023 5:19 PM CDT documented as of this encounter Care Teams Medical Collector Relationship Specialty Start Date End Date Kyle Swann MD [address] [place] [id number] PCP - General Family Medicine 02/12/24 Karla Madera, RN Wig Maker 12/13/22 documented as of this encounter
--- OUTSIDE RECORDS SUMMARY | 2024-03-10 13:24 | XMS_ITS | Encounter Summary ---
Author Organization [facility] Address [address] [address] Phone Care Team Providers Care Wire Rope Sling Maker Name Role Phone Karla Madera RN Unavailable Kyle Swann MD Primary Care Provider [phone] Encounter Details Date Type Department Care Team (Late st Contact Info) Description 03/09/2024 Telephone [facility] INFECTIOUS DISEASE [address] [place] [address] Deepika Cartagena Social History Tobacco Use Types Packs/Day Years Used Date Smoking Tobacco: Every Day Cigarettes 1.5 40 Smokeless Tobacco: Never Comments:1 pack Alcohol Use Standard Drinks/Week Comments Yes 0 (1 standard drink = 0.6 oz pur e alcohol) five drinks per week [facility] Utilities Answer Date Recorded In the past 12 months has [employer], gas, oil, or water [employer] threatened to shut off services in your [...] any time in the past 12 m [facility], were you homeless or living in a longterm (including now)? Patient declined 03/03/2024 EH IP [...] encounter Miscellaneous Notes * Telephone Encounter - Deepika Cartagena - 03/09/2024 10:11 AM CDT Director Of Billing talked to Saundra her sister. Saundra says patient is living with her in [facility]. . Saundra has her seeing in [facility]. Director Of Billing will cancel for now documented in this encounter Plan of Treatment Upcoming Encounters Date Type Department Care Team (Late st Contact Info) Description 03/17/2024 2:20 PM CDT Appointment [facility] GASTROENTEROLOGY [address] [place], [place] [id number] Megan Herring PA-C [address] [place] [address] documented as of this encounter Visit Diagnoses Not on filedocumented in this encounter Additional Health Concerns Infection Onset Date Last Indicated Resolved Time History of C difficile 01/13/2024 01/13/2024 documented as of this encounter Care Teams Wire Rope Sling Maker Relationship Specialty Start Date End Date Kyle Swann MD [address] [place] [id number] PCP - General Family Medicine 02/12/24 Karla Madera, RN Extermination Supervisor 12/13/22 documented as of this encounter
--- OUTSIDE RECORDS SUMMARY | 2024-03-10 13:24 | XMS_ITS | Encounter Summary ---
Author Organization [facility] Address [address] [address] Phone Care Team Providers Care Area Secretary Name Role Phone Karla Madera RN Unavailable [phone] Kyle Swann MD Primary Care Provider [phone] Encounter Details Date Type Department Care Team (Late st Contact Info) Description 03/09/2024 Telephone [facility] INFECTIOUS DISEASE [address] [place] [address] Deepika Cartagena Social History Tobacco Use Types Packs/Day Years Used Date Smoking Tobacco: Every Day Cigarettes 1.5 40 Smokeless Tobacco: Never Comments:1 pack Alcohol Use Standard Drinks/Week Comments Yes 0 (1 standard drink = 0.6 oz pur e alcohol) five drinks per week [facility] Utilities Answer Date Recorded In the past 12 months has [employer], gas, oil, or water [facility] [employer] threatened to shut off services in your [...] time in the past 12 m [facility], were you homeless or living in a nursing home (including now)? Patient declined 03/03/2024 EH IP [...] Yes 03/02/2024 documented as of this encounter Plan of Treatment Upcoming Encounters Date Type Department Care Team (Late st Contact Info) Description 03/17/2024 2:20 PM CDT Appointment [facility] GASTRO[facility]OLOG[facility] [address] [place], [place] [id number] Megan Herring PA-C [address] [place] [address] documented as of this encounter Visit Diagnoses Not on filedocumented in this encounter Additional Health Concerns Infection Onset Date Last Indicated Resolved Time History of C difficile 01/13/2024 01/13/2024 documented as of this encounter Care Teams Area Secretary Relationship Specialty Start Date End Date Kyle Swann MD [address] [place] [address] PCP - General Family Medicine 02/12/24 Karla Madera, RN Trim Mechanic 12/13/22 documented as of this encounter
--- OUTSIDE RECORDS SUMMARY | 2024-03-10 13:24 | XMS_ITS | Encounter Summary ---
Author Organization [facility] Address [address] [address] Phone Care Team Providers Care Manager Of Revenue Name Role Phone Karla Madera RN Unavailable [phone] Kyle Swann MD Primary Care Provider [phone] Reason for Visit * Reason Onset Date Comments Medication Therapy Management 03/09/2024 Sa marcin's sister answered the phone - Yas is still very sick and they are planning to bring her in to be seen - Requested call back in 2 weeks to see if Yas would like to complete PharmD [facility] T[facility], but per sister she is too ill to complete and would not be appropriate at this time - EN [phone] Encounter Details Date Type Department Care Team (Late st Contact Info) Description 03/09/2024 Telephone [facility] [address] [place], [place] [id number] Penny Daniel Medication Therapy Management (Yas's sister answered the phone - Yas is still very sick and they are planning to bring her in to be seen - Requested call back in 2 weeks to see if Yas would like to complete PharmD [facility] TCM, but per sister she is too ill to complete and would not be appropriate at this time - EN [phone]) Social History Tobacco Use Types Packs/Day Years Used Date Smoking Tobacco: Every Day Cigarettes 1.5 40 Smokeless Tobacco: Never Comments:1 pack Alcohol Use Standard Drinks/Week Comments Yes 0 (1 standard drink = 0.6 oz pur e alcohol) five drinks per week [facility] Utilities Answer Date Recorded In [...] any time in the past 12 m [facility], were you homeless or living in a correction (including now)? Patient declined 03/03/2024 IP Custom [...] encounter Miscellaneous Notes * Telephone Encounter - Penyn Daniel - 03/09/2024 11:26 AM CDT Yas's sister answered the phone - Yas is still very sick and they are planning to bring her in to be seen - Requested call back in 2 weeks to see if Yas would like to complete PharmD [facility] TCM,but per sister she is too ill to complete and would not be appropriate at this time - EN [phone] documented in this encounter Plan of Treatment Upcoming Encounters Date Type Department Care Team (Late st Contact Info) Description 03/17/2024 2:20 PM CDT Appointment [facility] [address] [place], [place] [id number] Megan Herring PA-C [address] [place] [address] documented as of this encounter Visit Diagnoses Not on filedocumented in this encounter Additional Health Concerns Infection Onset Date Last Indicated Resolved Time History of C difficile 01/13/2024 01/13/2024 documented as of this encounter Care Teams Manager Of Revenue Relationship Specialty Start Date End Date Kyle Swann MD [address] [address] PCP - General Family Medicine 02/12/24 Karla Madera, RN Financial Sales Professional 12/13/22 documented as of this encounter
--- OUTSIDE RECORDS SUMMARY | 2024-03-10 13:24 | XMS_ITS | Clinical Summary ---
Author Organization [facility] Address [address] [place] [id number] Phone Care Team Providers Care Manager Inventory Management Name Role Phone Karla Madera RN Unavailable [phone] Kyle Swann MD Primary Care Provider [phone] Allergies Active Allergy Reactions Criticality Noted Date Comments Benzoyl Peroxide 10/17/1997 allergic contact dermatitis Benzoyl Peroxide RASH Medium 10/17/1997 allergic contact dermatitis allergic contact dermatitis allergic contact dermatitis Environmental 01/25/2007 Some metals Latex Pruritis 01/15/2017 Medications Medication Sig Dispensed Refills Start Date End Date Status ASPIRIN 81 MG OR TABS 1 tablet once daily 100 3 09/13/2007 Active metoprolol succinate (Toprol-XL) 100 MG 24 hour extended-release tabletIndications:Es sential hypertension with goal blood pressure less than 140/90 Take 0.5 Tablets by mouth one time a day. Do not crush or chew. 45 Tablet 1 10/12/2023 Active ondansetron (Zofran ODT) 4 MG disintegrating tabletIndications:Na usea Take 1 Tablet by mouth every eight hours as needed for Nausea or Vomiting. 30 Tablet 11 03/01/2024 Active loperamide (Imodium) 2 MG capsule Take 2 Capsules by mouth four times a day as needed for Diarrhea. 120 Capsule 03/05/2024 Active magnesium oxide 400 (240 Mg) MG Tablet Take 1 Tablet by mouth one time a day. 30 Tablet 03/06/2024 Active Vit-Fe Fumarate-FA ( plus vitamin with folic acid 1 mg) tablet Take 1 Tablet by mouth one time a day. 30 Tablet 03/06/2024 Active simethicone (Gas-X) 80 MG chewable tablet Chew and swallow 2 Tablets every six hours as needed for Cramping. 30 Tablet 03/05/2024 Active thiamine (Vitamin B-1) 100 MG tabletIndications:Da ari consumption of alcohol Take 1 Tablet by mouth one time a day. 30 Tablet 03/06/2024 Active fidaxomicin (Dificid) 200 MG tabletIndications:In fection Take 1 Tablet by mouth two times a day for 10 days. Indications: Infection 20 Tablet 01/30/2024 4 potassium chloride CR (K-Dur, Klor-Con M) 20 MEQ tablet Take 1 Tablet by mouth one time a day for 5 days. Do not crush. 5 Tablet 02/12/2024 4 Active Problems Patient Care Coordination No te Formatting of this note migh t be different from the original. HCC Diagnosis Review please Problem Noted Date Diagnosed Date Hypokalemia 03/02/2024 Hypomagnesemia 03/02/2024 Diarrhea of presumed infectious origin 4 MONIQUE (generalized anxiety disorder) 04/29/2021 Bladder wall thickening 02/13/2017 Overview: Recommend UA and urology referral for cystoscopy due to smoking history. 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 Compound heterozygous on HFE gene testing. Referred to gastroenterology for further evaluation. Lesion of pancreas 01/15/2017 Overview: Likely lipoma or fat based on CT report Fatty liver 01/15/2017 ASCUS of cervix with negative high risk HPV 12/14 Overview: 12/2016 - repeat 3 years Elevated LFTs 2017 Overview: Known fatty liver, likely also due to hemochromatosis, gastroenterology referral pending Routine general medical exam ination at a health care facility 08/28/2016 Overview: Images from the original note were not included. Cervical cancer screen - history of multiple abnormals, Colposcopy: 2002, 2001, 1998, 1996, pap smear was normal 2010. Breast cancer screen - 01/2016 normal Colon cancer screen - History of polyps - last colonoscopy ? 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 AVMs versus submucosal hemorrhage in the sigmoid colon, internal hemorrhoids Tubular adenoma& Hyperplastic polyps F/U 5 years IMO Update 03/25 Essential hypertension 08/30/2004 Last Assessment & Plan: Borderline elevated high heart rate. May need beta joao to be increased needs to monitor it Generalized anxiety disorder 09/29/2003 Other psoriasis 05/16/2003 Overview: vulgaris / scaling lesions on her lower back Resolved Problems Problem Noted Date Diagnosed Date Resolved Date Overweight (BMI 25.0-29.9) 08/28/2016 0 2017 ASCUS of cervix with negative high risk HPV 01/09/2003 01/15/2017 Hypothyroidism 12/21/1996 05/14/2018 Overview: history of was on thryoxine for several years and then did not need it any more. Encounters Date Type Department Care Team Description 03/09/2024 Telephone [facility] [address] [place] [address] Penny Daniel Medication Therapy Management (aYs's sister answered the phone - Yas is still very sick and they are planning to bring her in to be seen - Requested call back in 2 weeks to see if Yas would like to complete PharmD [employer] TCM, but per sister she is too ill to complete and would not be appropriate at this time - EN [phone]) 03/09/2024 Telephone [facility] [address] [place], [place] [phone] Deepika Cartagena 03/09/2024 Telephone [facility] [address] [place], [place] [phone] Deepika Cartagena 03/07/2024 Patient Outreach [facility] [address] [place], [place] [address] Shadia Beckford RN Population Management (Transition of Care review) 03/06/[address] [facility] LINE [address] [place], [place] [phone] Bernarda Almaraz RNbleach chlorinator 03/03/2024 Patient Outreach [facility] [address] [place], [place] [address] Karla Madera RN Transitional Care (Transitional Care Review) 03/02/2024 3:45 AM CDT - 03/05/2024 5:57 PM CDT Hospital Encounter [facility] [address] [place] [address] Parmjit Hurley MD Ellefson, Nicholas C, DO Diarrhea of presumed infectious origin (Primary Dx); Daily consumption of alcohol; Hospital discharge follow-up Discharge Disposition: Home and/or Self Care 03/01/2024 10:42 PM CDT - 03/02/2024 3:24 AM CDT Emergency [facility] [address] [place] [phone] Adeel Aguiar MD Hypokalemia (Primary Dx); C. difficile colitis Discharge Disposition: Admit to [facility] 03/01/2024 4:00 PM CDT Ancillary Procedure [facility] [address] [place] [address] Kyle Swann MD Hypoxia 03/01/2024 3:20 PM CDT Office Visit [facility] [address] [place] [address] Kyle Swann MD C. difficile colitis (Primary Dx); Nausea; Macrocytosis; Hypoxia 03/01/[address] [facility] [address] [place] [address] Kerri Ramos RN Results 03/01/2024 Travel 02/19/2024 Telephone [facility] [address] [place] [address] Deepika Cartagena 02/16/2024 Telephone [facility] [address] [place] [address] Deepika Cartagena 02/12/2024 4:20 PM CDT - 02/12/2024 11:18 PM CDT Emergency [facility] [address] [place] [phone] Yaritza Barnes MD C. difficile diarrhea (Primary Dx); Hypomagnesemia; Hypokalemia Discharge Disposition: Home and/or Self Care 02/12/2024 Travel 01/30/2024 3:13 PM CDT - 01/30/2024 7:41 PM CDT Emergency [facility] [address] [place] [phone] Era Vang MD C. difficile colitis (Primary Dx); Hypokalemia; Hypomagnesemia Discharge Disposition: Home and/or Self Care 01/30/2024 Travel 01/14/[address] [facility] [address] [place] [address] Karla Madera RN Transitional Care 01/13/2024 1:31 PM CDT - 01/13/2024 7:02 PM CDT Emergency [facility] [address] [place] [phone] Jose Smith DO Merlis, Jennifer K, MD Hypokalemia (Primary Dx); Hypomagnesemia; Diarrhea, unspecified type; C. difficile diarrhea Discharge Disposition: Home and/or Self Care 01/13/2024 Orders Only [facility] [address] [place] [phone] Cass Wheatley PA-C 01/13/2024 Telephone [facility] [address] [place] [address] Irlanda Desai RN Urgent Care Follow Up 01/13/2024 Telephone [facility] [address] [place] [phone] Jay Riggs APRN, CNP 01/12/2024 5:10 PM CDT Office Visit [facility] [address] [place] [phone] Jay Riggs, WALTER, KSENIA Diarrhea of presumed infectious origin (Primary Dx); Nausea 01/12/2024 Telephone [facility] LINE [address] [place] [address] Sveta Costa RN Results (-Critical magnesium 1.1-) 01/12/2024 Travel from Last 3 Months Immunizations Name Administration Dates Next Due Hepatitis A, Adult 05/16/2019 TD >7yrs With Preservative 08/16/2002 Tdap (7 years and older) 12/13/2014,02/02/2013 Surgical History Surgery Date Site/Laterality Comments LASER SURGERY OF CERVIX 01/09/2003 lasor vaporization - previous 09/12/02 US ABDOMEN COMPLETE 09/29/2002 partially obscured pancreas. no specific abnormalities. COLPOSCOPY,BX CERVIX/ENDOCERV CURR 09/12/2002 benign endocervical curettage; cervix, biopsy: koilocytotic atypia/mild squamous dysplasia - times 6 previous dates XR RIBS 1 SIDE 2 OBL VWS 07/19/2002 negative BIOPSY/EXCISION, LYMPH NODE(S) 05/13/2000 biopsy of deep right inguinal groin lymph node with benign results DRAIN SKIN ABSCESS SIMPLE 05/11/2002 incision and drainage of a hyper keratotic plug overlaying a tiny sebaceous cyst EAR PROCEDURE 12/27/1996 excision of osteoma of the left ear canal / canal plasty LAMINECTOMY,LUMBAR 09/08/2002 L2 - L5 severe lumbar spinal stenosis with neurogenic claudication and left leg radicular pain. 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 strain Dermatophytosis of foot 12/21/2000 tinea pe dis Enlargement of lymph nodes 05/04/2000 physi ologic lymphoid hyperplasia - right groin mass Goiter, unspecified 12/09/1999 borderline t hyromegaly Spontaneous ecchymoses 02/14/1999 left thig h Contact dermatitis and other eczema, due to unspecified cause 02/14/1999 Contact dermatitis with occa sional urticaria Unspecified disorder of ear 10/01/1998 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 - s/p excision Cervicalgia 09/26/1998 left sided neck pain Conjunctivitis unspecified 03/01/1998 left greater than left - suspect allergic Unspecified hypothyroidism 12/21/1996 histo ry of Erythematous conditions 07/27/1995 symmetri janine erythema on face, nose, and chin - also scarring cystic acne symmetrically predominantly on the lower third of face Leukorrhea, not specified as infective 07/22/1995 Benign neoplasm of colon 05/12/2007 Hemorrhage of rectum and anus 05/12/2007 Diverticulosis of colon (wit hout mention of hemorrhage) 05/12/2007 Hypertension Hyperlipidemia Hypothyroidism 12/21/1996 history of was o n thryoxine for several years and then did not need it any more. Family History Medical History Relation Comments Acne Father Blood Disease Father Rare blood cance r Prostate Cancer Father Addiction Maternal Grandfather alcohol abu se - unknown maternal/paternal Neuro Disease Maternal Grandfather MO - in 70' s Cancer Maternal Grandmother gallbladder - unknown maternal/paternal/liver cancer Cardiovascular Disease Maternal Grandmother ebonie nary artery disease Hypertension Mother Ophthalmic Disease Mother glaucoma, mac . degen. Cardiovascular Disease Paternal Grandfather ebonie nary artery disease Cardiovascular Disease Paternal Grandmother ebonie nary artery disease Other Endocrine Disease Sister 4 thyroid disease Relation Status Comments Daughter 1 Alive Daughter 2 Alive Father Maternal Grandfather Maternal Grandmother (Age 70) liver can cer Mother Alive Paternal Grandfather Paternal Grandmother Sister 1 Alive Sister 2 Alive Sister 3 Alive Sister 4 Social History Tobacco Use Types Packs/Day Years Used Date Smoking Tobacco: Every Day Cigarettes 1.5 40 Smokeless Tobacco: Never Tobacco Cessation:Ready to Q uit: Not Asked; Counseling Given: Not Answered Comments:1 pack Alcohol Use Standard Drinks/Week Comments Yes 0 (1 standard drink = 0.6 oz pur e alcohol) five drinks per week [facility] Utilities Answer Date Recorded In [...] any time in the past 12 m [facility], were you homeless or living in a senior care (including now)? Patient declined 03/03/2024 IP Custom [...] file Not on file Not on file Obstetrics History Para Term AB IAB SAB Ectopic Molar Multiple Living Live Births 2 2 2 Date Outcome GA Total Labor Labor/2nd/3rd Weight Sex Type Anes PTL Odalis A1 A5 Name Clin Para Para Comments 2 children - both Last Filed Vital Signs Vital Sign Reading [...] oz) 03/03/2024 3:45 A M CDT Height 162.6 cm (5' 4) 01/30/2024 1:26 PM CDT Body Mass Index 23.95 01/30/2024 1:26 PM CDT Plan of Treatment Upcoming Encounters Date Type Department Care Team (Late st Contact Info) Description 03/17/2024 2:20 PM CDT Appointment [facility] [address] [place] [address] Megan Herring PA-C [address] [place] [phone] Health Maintenance Due Date Last Done Comments CT Colonography 1958 Cologuard 1958 Colonoscopy 1958 Colorectal Cancer Screening 1958 FIT/FOBT 1958 MEDICARE AWV 1958 Sigmoidoscopy 1958 Pneumococcal Vaccine: 65+ yrs (Standing Order) (1 of 2 - PCV) 01/03/1964 Shingrix (Zoster recombinant) vaccine (Standing Order) (1 of 2) 01/03/2008 MAMMO,SCREEN 01/31/2017 02/01/2016, 09/13, 05/04/2007, Additional history exists DXA,FEMALES AGE 65 OR GREATER 2023 COVID-19 Vaccine ( season) 2024 Influenza Vaccine Seasonal (Standing Order) (#1) 2024 TETANUS (Standing Order) 12/13/2024 015, 02/02/2013, 08/16/2002 PERTUSSIS (Standing Order) Completed 12/13/2014, HPV Vaccine (Standing Order) Aged Out No longer eligible based on patient's age to complete this topic Hepatitis B Vaccine (Standing Order) Aged Out No longer eligible based on patient's age to complete this topic Procedures Procedure Name Priority Date/Time Associated Diagnosis Comments MAGNESIUM Routine 03/05/2024 7:03 AM CDT BASIC METABOLIC PANEL Routine 03/05/2024 7:03 AM CDT HOLD EDTA Routine 03/04/2024 7:03 AM CDT MAGNESIUM Routine 03/04/2024 7:03 AM CDT BASIC METABOLIC PANEL Routine 03/04/2024 7:03 AM CDT PHOSPHORUS Routine 03/04/2024 7:03 AM CDT ENTERIC PATHOGENS BY NUCLEIC ACID TESTING Routine 03/03/2024 12:01 PM CDT HEMOGRAM/DIFF Routine 03/03/2024 6:27 AM CDT MAGNESIUM Routine 03/03/2024 6:26 AM CDT COMPREHENSIVE METABOLIC PANEL Routine 03/03/2024 6:26 AM CDT PHOSPHORUS Routine 03/03/2024 6:26 AM CDT CLOSTRIDIUM DIFFICILE BY MOLECULAR DETECTION Routine 03/02/2024 4:17 PM CDT MAGNESIUM Add on 03/02/2024 6:40 AM CDT HOLD EDTA Routine 03/02/2024 6:40 AM CDT C REACTIVE PROTEIN Timed 03/02/2024 6: 40 AM CDT BASIC METABOLIC PANEL Routine 03/02/2024 6:40 AM CDT LACTIC ACID, VENOUS STAT 03/01/2024 1 1:58 PM CDT TROPONIN I STAT 03/01/2024 11:58 PM CDT PHOSPHORUS Add on 03/01/2024 11:17 PM CDT FERRITIN Add on 03/01/2024 11:17 PM CDT ALCOHOL Add on 03/01/2024 11:17 PM CDT MAGNESIUM STAT 03/01/2024 11:17 PM CDT COMPREHENSIVE METABOLIC PANEL STAT 03/01/2024 11:17 PM CDT HEMOGRAM/DIFF STAT 03/01/2024 11:17 PM CDT EKG 12-LEAD STAT 03/01/2024 11:02 PM CDT XR CHEST 2 VIEWS Routine 03/01/2024 4:08 PM CDT Hypoxia COMPREHENSIVE METABOLIC PANEL Routine 03/01/2024 4:07 PM CDT Macrocytosis VITAMIN D TOTAL Routine 03/01/2024 4:07 PM CDT Macrocytosis FOLATE Routine 03/01/2024 4:07 PM CDT Macrocytosis VITAMIN B12 Routine 03/01/2024 4:07 PM CDT Macrocytosis MAGNESIUM Routine 03/01/2024 4:07 PM CDT C. difficile colitis HOLD NA CITRATE STAT 02/12/2024 4:52 PM CDT HOLD DARK GREEN WHOLE BLOOD TUBE STAT 02/12/2024 4:51 PM CDT HOLD ORTA TUBE STAT 02/12/2024 4:51 PM CDT HOLD SERUM TUBE STAT 02/12/2024 4:51 PM CDT HOLD LI HEPARIN STAT 02/12/2024 4:51 PM CDT HOLD EDTA STAT 02/12/2024 4:51 PM CDT HEPATIC FUNCTION PANEL STAT 02/12/2024 4:51 PM CDT CREATINE KINASE STAT 02/12/2024 4:51 PM CDT RAINBOW DRAW STAT 02/12/2024 4:51 PM CDT MAGNESIUM STAT 02/12/2024 4:51 PM CDT BASIC METABOLIC PANEL STAT 02/12/2024 4:51 PM CDT HEMOGRAM/DIFF STAT 02/12/2024 4:51 PM CDT EKG 12-LEAD STAT 01/30/2024 4:39 PM CDT MAGNESIUM STAT Add-On 01/30/2024 3:35 PM CDT COMPREHENSIVE METABOLIC PANEL STAT 01/30/2024 3:35 PM CDT HEMOGRAM/DIFF STAT 01/30/2024 3:35 PM CDT HOLD SERUM TUBE STAT 01/30/2024 3:35 PM CDT HOLD NA CITRATE STAT 01/30/2024 3:35 PM CDT HOLD EDTA STAT 01/30/2024 3:35 PM CDT HOLD LI HEPARIN STAT 01/30/2024 3:35 PM CDT MAGNESIUM Timed 01/13/2024 6:14 PM CDT POTASSIUM Timed 01/13/2024 6:14 PM CDT MAGNESIUM STAT 01/13/2024 1:48 PM CDT BASIC METABOLIC PANEL STAT 01/13/2024 1:48 PM CDT HOLD SERUM TUBE STAT 01/13/2024 1:48 PM CDT HOLD NA CITRATE STAT 01/13/2024 1:48 PM CDT HOLD EDTA STAT 01/13/2024 1:48 PM CDT HOLD LI HEPARIN STAT 01/13/2024 1:48 PM CDT CLOSTRIDIUM DIFFICILE BY MOLECULAR DETECTION Routine 01/13/2024 10:00 AM CDT Diarrhea of presumed infectious origin ENTERIC PATHOGENS BY NUCLEIC ACID TESTING Routine 01/13/2024 10:00 AM CDT Diarrhea of presumed infectious origin MAGNESIUM STAT 01/12/2024 5:56 PM CDT Diarrhea of presumed infectious origin HEMOGRAM/DIFF STAT 01/12/2024 5:56 PM CDT Diarrhea of presumed infectious origin C REACTIVE PROTEIN STAT 01/12/2024 5: 56 PM CDT Diarrhea of presumed infectious origin LIPASE STAT 01/12/2024 5:56 PM CDT Diarrhea of presumed infectious origin COMPREHENSIVE METABOLIC PANEL STAT 01/12/2024 5:56 PM CDT Diarrhea of presumed infectious origin MAMM DIGITAL SCREENING Routine 02/01/2016 4:32 PM CDT Visit for screening mammogram from Last 3 Months or Most Recently Relevant to Health Maintenance Results * (ABNORMAL) BASIC METABOLIC PANEL (03/05/2024 7:03 AM CDT) Sodium 132(L) 134 - 143 mEq/L 03/05/2024 7:30 AM [facility] Potassium 3.6 3.4 - 5.1 mEq/L 03/05/2024 7:30 AM [facility] Chloride 92(L) 99 - 110 mEq/L 03/05/2024 7:30 AM [facility] Carbon Dioxide 27 19 - 29 mEq/L 03/05/2024 7:30 AM [facility] Anion Gap 13.0 3.0 - 15.0 mEq/L 03/05/2024 7:30 AM [facility] Blood Urea Nitrogen 3(L) 5 - 24 mg/dL 03/05/2024 7:30 AM [facility] Creatinine 0.48 0.40 - 1.00 mg/dL 03/05/2024 7:30 AM [facility] Glomerular Filtration Rate 104 >60 mL/min/1. 73 m*2 03/05/2024 7:30 AM [facility] Comment:Risk of cardiovascul ar disease increases when GFR is abnormal; persistently reduced GFR values are a specific indication of CKD. This calculation uses CKD- EPI 2020 equation without adjustment for race; it has not been validated in women. Calcium 8.7 8.4 - 10.5 mg/dL 03/05/2024 7:30 AM [facility] Glucose 150(H) 70 - 99 mg/dL 03/05/2024 7:30 AM [facility] Blood BLOOD SPECIMEN / Unknown Venipuncture / Unknown 03/05/2024 7:03 AM CDT 03/05/2024 7:12 AM CDT Narrative [facility] - 03/05/2024 7:30 AM CDT Current ADA criteria for Glucose: ?Normal: 70-99 mg/dL ?Impaired Fasting Glucose: 100-125 mg/dL ?Diabetes Mellitus: at or above 126 mg/dL The diagnosis of diabetes must be confirmed on a subsequent day by measuring Fasting Plasma Glucose, 2-hr PG or random plasma glucose (if symptoms are present). Dirk Saldana DO EC CHEMISTRY MIAH NEVAREZ Performing Organization Address [facility] Co de Phone Number [facility] [address] [place] [address] * (ABNORMAL) MAGNESIUM (03/05/2024 7:03 AM CDT) Magnesium 1.6(L) 1.8 - 2.7 mg/dL 03/05/2024 7:30 AM CDT [facility] Blood BLOOD SPECIMEN / Unknown Venipuncture / Unknown 03/05/2024 7:03 AM CDT 03/05/2024 7:12 AM CDT Dirk Saldana DO EC CHEMISTRY MIAH NEVAREZ Performing Organization Address [facility] Co de Phone Number [facility] [address] [place] [address] * HOLD PURPLE TUBE (03/04/2024 7:03 AM CDT) Blood BLOOD SPECIMEN / Unknown Venipuncture / Unknown 03/04/2024 7:03 AM CDT 03/04/2024 7:17 AM CDT Dirk Saldana DO EC HEMATOLOGY ORD JOEY Performing Organization Address [facility] Co de Phone Number [facility] [address] [place] [address] * (ABNORMAL) BASIC METABOLIC PANEL (03/04/2024 7:03 AM CDT) Pathologist [facility] Sodium 138 134 - 143 mEq/L 03/04/2024 7:52 AM CDT [facility] Potassium 3.6 3.4 - 5.1 mEq/L 03/04/2024 7:52 AM CDT [facility] Chloride 97(L) 99 - 110 mEq/L 03/04/2024 7:52 AM [facility] Carbon Dioxide 29 19 - 29 mEq/L 03/04/2024 7:52 AM [facility] Anion Gap 12.0 3.0 - 15.0 mEq/L 03/04/2024 7:52 AM [facility] Blood Urea Nitrogen 3(L) 5 - 24 mg/dL 03/04/2024 7:52 AM [facility] Creatinine 0.47 0.40 - 1.00 mg/dL 03/04/2024 7:52 AM [facility] Glomerular Filtration Rate 105 >60 mL/min/1. 73 m*2 03/04/2024 7:52 AM [facility] Comment:Risk of cardiovascul ar disease increases when GFR is abnormal; persistently reduced GFR values are a specific indication of CKD. This calculation uses CKD- EPI 2020 equation without adjustment for race; it has not been validated in women. Calcium 8.3(L) 8.4 - 10.5 mg/dL 03/04/2024 7:52 AM [facility] Glucose 141(H) 70 - 99 mg/dL 03/04/2024 7:52 AM [facility] Blood BLOOD SPECIMEN / Unknown Venipuncture / Unknown 03/04/2024 7:03 AM CDT 03/04/2024 7:17 AM CDT Narrative [facility] - 03/04/2024 7:52 AM T Current ADA criteria for Glucose: ?Normal: 70-99 mg/dL ?Impaired Fasting Glucose: 100-125 mg/dL ?Diabetes Mellitus: at or above 126 mg/dL The diagnosis of diabetes must be confirmed on a subsequent day by measuring Fasting Plasma Glucose, 2-hr PG or random plasma glucose (if symptoms are present). Dirk Saldana DO EC CHEMISTRY ORDE ROQUE Performing Organization Address [facility] Co de Phone Number [facility] [address] [place] [address] * (ABNORMAL) MAGNESIUM (03/04/2024 7:03 AM CDT) [facility] Magnesium 1.6(L) 1.8 - 2.7 mg/dL 03/04/2024 7:52 AM CDT [facility] Blood BLOOD SPECIMEN / Unknown Venipuncture / Unknown 03/04/2024 7:03 AM CDT 03/04/2024 7:17 AM CDT Dirk [employer] CHEMISTRY ORDSriram NEVAREZ Performing Organization Address [facility] Co de Phone Number [facility] [address] [place] [address] * PHOSPHORUS (03/04/2024 7:03 AM CDT) [facility] Phosphorus 4.0 2.5 - 4.6 mg/dL 03/04/2024 7:52 AM CDT [facility] Blood BLOOD SPECIMEN / Unknown Venipuncture / Unknown 03/04/2024 7:03 AM CDT 03/04/2024 7:17 AM CDT Dirk Saldana [employer] CHEMISTRY ORDSriram NEVAREZ Performing Organization Address [facility] Co de Phone Number [facility] [address] [place] [address] * ENTERIC PATHOGENS BY NUCLEIC ACID TESTING (03/03/2024 12:01 PM CDT) Only the most recent of2 resultswithin the time period is included. [facility] Plesiomonas shigelloides Not Detected Not Detected 03/03/2024 5:[address] [facility] Salmonella species Not Detected Not Detected 03/03/2024 5:[address] [facility] Vibrio species Not Detected Not Detected 03/03/2024 5:[address] [facility] Vibrio cholerae Not Detected Not Detected 03/03/2024 5:[address] [facility] Yersinia enterocolitica Not Detected Not Detected 03/03/2024 5:19 PM CDT [facility] Enteroaggregative E. coli (EAEC) Not Detected Not Detected 03/03/2024 5:19 PM CDT [facility] Enteropathogenic E. coli (EPEC) Not Detected Not Detected 03/03/2024 5:19 PM CDT [facility] Enterotoxigenic E. coli (ETEC) Not Detected Not Detected 03/03/2024 5:19 PM CDT [facility] Shiga-like Toxin producing E. coli (STEC) Not Detected Not Detected 03/03/2024 5:19 PM CDT [facility] Shigella/Enteroinvas russell E. coli (EIEC) Not Detected Not Detected 03/03/2024 5:[address] [facility] Cyclospora cayetanensis Not Detected Not Detected 03/03/2024 5:[address] [facility] Entamoeba histolytica Not Detected Not Detected 03/03/2024 5:[address] [facility] Giardia Not Detected Not Detected 03/03/2024 5:[address] [facility] Adenovirus F40/41 Not Detected Not Detected 03/03/2024 5:[address] [facility] Astrovirus Not Detected Not Detected 03/03/2024 5:[address] [facility] Norovirus GI/GII Not Detected Not Detected 03/03/2024 5:[address] [facility] Rotavirus Not Detected Not Detected 03/03/2024 5:[address] [facility] Sapovirus Not Detected Not Detected 03/03/2024 5:[address] [facility] Campylobacter species Not Detected Not Detected 03/03/2024 5:[address] [facility] Cryptosporidium species Not Detected Not Detected 03/03/2024 5:[address] [facility] Stool FECES / Unknown Non-blood collection / Unknown 03/03/2024 12:01 PM CDT 03/03/2024 12:[address] [facility] - 03/03/2024 5:19 PM CDT Test detects target nucleic acid by multiplex polymerase chain reaction (PCR) on the [employer] System. Dirk CHAVEZ MICROBIOLOGY - GENERAL ORDERABLES [facility] [address] [place], [place] [address] * (ABNORMAL) HEMOGRAM/DIFFERENTIAL (03/03/2024 6:27 AM CDT) [facility] WBC 10.0 3.2 - 11.0 10*9/L 03/03/2024 6:42 AM CDT [facility] RBC 2.27(L) 3.77 - 5.24 10*12/L 03/03/2024 6:42 AM CDT [facility] HGB 9.0(L) 11.2 - 15.5 g/dL 03/03/2024 6:42 AM CDT [facility] HCT 26.0(L) 34.3 - 46.0 % 03/03/2024 6:42 AM CDT [facility] MCV 114.5(H) 81.4 - 99.0 fL 03/03/2024 6:42 AM CDT [facility] MCH 39.6(H) 26.7 - 33.1 pg 03/03/2024 6:42 AM CDT [facility] MCHC 34.6 31.6 - 35.5 g/dL 03/03/2024 6:42 AM CDT [facility] RDW 16.9(H) 11.3 - 14.6 % 03/03/2024 6:42 AM CDT [facility] PLT 305 130 - 375 10*9/L 03/03/2024 6:42 AM CDT [facility] Neutrophils % 78.3 % 03/03/2024 6:42 AM CDT [facility] Lymphocytes % 13.1 % 03/03/2024 6:42 AM CDT [facility] Monocytes % 7.2 % 03/03/2024 6:42 AM CDT [facility] Eosinophils % 0.9 % 03/03/2024 6:42 AM CDT [facility] Basophils % 0.1 % 03/03/2024 6:42 AM CDT [facility] Immature Granulocytes % 0.4 % 03/03/2024 6:42 AM CDT [facility] Neutrophils Absolute 7.8(H) 1.5 - 7.6 10*9/L 03/03/2024 6:42 AM CDT [facility] Lymphocytes Absolute 1.3 0.8 - 3.3 10*9/L 03/03/2024 6:42 AM CDT [facility] Monocytes Absolute 0.7 0.2 - 0.9 10*9/L 03/03/2024 6:42 AM CDT [facility] Eosinophils Absolute 0.1 0.0 - 0.4 10*9/L 03/03/2024 6:42 AM CDT [facility] Basophils Absolute 0.0 0.0 - 0.1 10*9/L 03/03/2024 6:42 AM CDT [facility] Immature Granulocytes Absolute 0.04 0.00 - 0.06 10*9/L 03/03/2024 6:42 AM CDT [facility] Blood BLOOD SPECIMEN / Unknown Venipuncture / Unknown 03/03/2024 6:27 AM CDT 03/03/2024 6:37 AM CDT Parmjit Hurley MD HEMATOLOGY ORDE ROQUE [facility] Organization Address City/State/ZIP Co de Phone Number [facility] [address] [id number] * (ABNORMAL) COMPREHENSIVE METABOLIC PANEL (03/03/2024 6:26 AM CDT) [facility] Sodium 137 134 - 143 mEq/L 03/03/2024 7:03 AM [facility] Potassium 3.1(L) 3.4 - 5.1 mEq/L 03/03/2024 7:03 AM [facility] Chloride 95(L) 99 - 110 mEq/L 03/03/2024 7:03 AM [facility] Carbon Dioxide 31(H) 19 - 29 mEq/L 03/03/2024 7:03 AM [facility] Anion Gap 11.0 3.0 - 15.0 mEq/L 03/03/2024 7:03 AM [facility] Blood Urea Nitrogen 6 5 - 24 mg/dL 03/03/2024 7:03 AM [facility] Creatinine 0.48 0.40 - 1.00 mg/dL 03/03/2024 7:03 AM [facility] Glomerular Filtration Rate 104 >60 mL/min/1. 73 m*2 03/03/2024 7:03 AM [facility] Comment:Risk of cardiovascul ar disease increases when GFR is abnormal; persistently reduced GFR values are a specific indication of CKD. This calculation uses CKD- EPI 2020 equation without adjustment for race; it has not been validated in women. Calcium 8.3(L) 8.4 - 10.5 mg/dL 03/03/2024 7:03 AM [facility] Glucose 150(H) 70 - 99 mg/dL 03/03/2024 7:03 AM [facility] Protein, Total 5.7(L) 6.0 - 8.0 g/dL 03/03/2024 7:03 AM [facility] Albumin 2.1(L) 3.5 - 5.0 g/dL 03/03/2024 7:03 AM [facility] Alkaline Phosphatase 348(H) 40 - 150 IU/L 03/03/2024 7:03 AM CDT [facility] Aspartate Aminotransferase 94(H) 10 - 40 IU/L 03/03/2024 7:03 AM CDT [facility] Alanine Aminotransferase 28 6 - 31 IU/L 03/03/2024 7:03 AM CDT [facility] Bilirubin, Total 0.7 0.2 - 1.2 mg/dL 03/03/2024 7:03 AM CDT [facility] Blood BLOOD SPECIMEN / Unknown Venipuncture / Unknown 03/03/2024 6:26 AM CDT 03/03/2024 6:37 AM CDT Narrative [facility] - 03/03/2024 7:03 AM CDT Current ADA criteria for Glucose: ?Normal: 70-99 mg/dL ?Impaired Fasting Glucose: 100-125 mg/dL ?Diabetes Mellitus: at or above 126 mg/dL The diagnosis of diabetes must be confirmed on a subsequent day by measuring Fasting Plasma Glucose, 2-hr PG or random plasma glucose (if symptoms are present). Parmjit Hurley MD EC CHEMISTRY ORDER NICKY [facility] [address] * (ABNORMAL) MAGNESIUM (03/03/2024 6:26 AM CDT) Magnesium 1.6(L) 1.8 - 2.7 mg/dL 03/03/2024 7:03 AM CDT [facility] Blood BLOOD SPECIMEN / Unknown Venipuncture / Unknown 03/03/2024 6:26 AM CDT 03/03/2024 6:37 AM CDT Dirk Saldana DO EC CHEMISTRY ORDE ROQUE [facility] [address] [place] [address] * (ABNORMAL) PHOSPHORUS (03/03/2024 6:26 AM CDT) Pathologist [facility] Phosphorus 2.3(L) 2.5 - 4.6 mg/dL 03/03/2024 7:03 AM CDT [facility] Blood BLOOD SPECIMEN / Unknown Venipuncture / Unknown 03/03/2024 6:26 AM CDT 03/03/2024 6:37 AM CDT Parmjit Hurley MD EC CHEMISTRY ORDER NICKY Performing Organization Address City/[facility]/ZIP Co de Phone Number [facility] [address] [place] [address] * CLOSTRIDIUM DIFFICILE BY MOLECULAR DETECTION (03/02/2024 4:17 PM CDT) Only the most recent of2 resultswithin the time period is included. [facility] Clostridium difficile Negative Negative 03/02/2024 8:[address] [facility] Clostridium difficile strain 027 Presumptive Negative Presumptive Negative 03/02/2024 8:[address] [facility] Stool FECES / Unknown Non-blood collection / Unknown 03/02/2024 4:17 PM CDT 03/02/2024 4:[address] [facility] - 03/02/2024 8:12 PM [...] real-time polymerase chain reaction (PCR) on the [employer] D[employer] System. ?? Parmjit Hurley MD EC MICROBIOLOGY - GENERAL ORDERABLES [facility] [address] * HOLD PURPLE TUBE (03/02/2024 6:40 AM CDT) Blood BLOOD SPECIMEN / Unknown Venipuncture / Unknown 03/02/2024 6:40 AM CDT 03/02/2024 6:57 AM CDT Parmjit Hurley MD EC HEMATOLOGY ORDE RABLES Performing Organization Address City/[facility]/ZIP Co de Phone Number [facility] [address] [place] [address] * (ABNORMAL) C-REACTIVE PROTEIN (03/02/2024 6:40 AM CDT) Pathologist [facility] C-Reactive Protein 9.0(H) 0.0 - 0.8 mg/dL 03/02/2024 7:17 AM CDT [facility] Blood BLOOD SPECIMEN / Unknown Venipuncture / Unknown 03/02/2024 6:40 AM CDT 03/02/2024 6:57 AM CDT Parmjit Hurley MD EC CHEMISTRY ORDER NICKY Performing Organization Address [facility] Co de Phone Number [facility] [address] [place] [address] * (ABNORMAL) BASIC METABOLIC PANEL (03/02/2024 6:40 AM CDT) Sodium 140 134 - 143 mEq/L 03/02/2024 7:17 AM CDT [facility] Potassium 3.1(L) 3.4 - 5.1 mEq/L 03/02/2024 7:17 AM CDT [facility] Chloride 94(L) 99 - 110 mEq/L 03/02/2024 7:17 AM CDT [facility] Carbon Dioxide 32(H) 19 - 29 mEq/L 03/02/2024 7:17 AM CDT [facility] Anion Gap 14.0 3.0 - 15.0 mEq/L 03/02/2024 7:17 AM CDT [facility] Blood Urea Nitrogen 8 5 - 24 mg/dL 03/02/2024 7:17 AM CDT [facility] Creatinine 0.50 0.40 - 1.00 mg/dL 03/02/2024 7:17 AM CDT [facility] Glomerular Filtration Rate 103 >60 mL/min/1. 73 m*2 03/02/2024 7:17 AM CDT [facility] Comment:Risk of cardiovascul ar disease increases when GFR is abnormal; persistently reduced GFR values are a specific indication of CKD. This calculation uses CKD- EPI 2020 equation without adjustment for race; it has not been validated in women. Calcium 8.2(L) 8.4 - 10.5 mg/dL 03/02/2024 7:17 AM T [facility] Glucose 133(H) 70 - 99 mg/dL 03/02/2024 7:17 AM [facility] Blood BLOOD SPECIMEN / Unknown Venipuncture / Unknown 03/02/2024 6:40 AM CDT 03/02/2024 6:57 AM CDT Narrative [facility] - 03/02/2024 7:17 AM CDT Current ADA criteria for Glucose: ?Normal: 70-99 mg/dL ?Impaired Fasting Glucose: 100-125 mg/dL ?Diabetes Mellitus: at or above 126 mg/dL The diagnosis of diabetes must be confirmed on a subsequent day by measuring Fasting Plasma Glucose, 2-hr PG or random plasma glucose (if symptoms are present). Parmjit Hurley MD EC CHEMISTRY ORDER NICKY [facility] [address] [place], [place] [address] * MAGNESIUM (03/02/2024 6:40 AM CDT) Magnesium 2.1 1.8 - 2.7 mg/dL 03/02/2024 10:29 AM CDT [facility] Blood BLOOD SPECIMEN / Unknown Venipuncture / Unknown 03/02/2024 6:40 AM CDT 03/02/2024 6:57 AM CDT Dirk Saldana DO EC CHEMISTRY MIAH NEVAREZ [facility] [address] [place] [address] * TROPONIN I (03/01/2024 11:58 PM CDT) [facility] High Sensitivity Troponin I <2.7 <=14.0 ng/L 03/02/2024 12:[address] [facility] Blood BLOOD SPECIMEN / Unknown Venipuncture / Unknown 03/01/2024 11:58 PM CDT 03/02/2024 12:13 AM CDT Adeel Haque MD EC CHEMISTR Y ORDERABLES Performing Organization Address [facility] Co de Phone Number [facility] [address] * LACTIC ACID, VENOUS (03/01/2024 11:58 PM CDT) [facility] Lactic Acid, Venous 1.9 0.5 - 2.0 mmol/L 03/02/2024 12:[address] [facility] Blood BLOOD SPECIMEN / Unknown Venipuncture / Unknown 03/01/2024 11:58 PM CDT 03/02/2024 12:13 AM CDT Adeel Haque MD EC CHEMISTR Y ORDERABLES Performing Organization Address City/[facility]/ZIP Co de Phone Number [facility] [address] [place] [address] * (ABNORMAL) COMPREHENSIVE METABOLIC PANEL (03/01/2024 11:17 PM CDT) [facility] Sodium 140 134 - 143 mEq/L 03/01/2024 11:48 PM CDT [facility] Potassium 2.5(LL) 3.4 - 5.1 mEq/L 03/01/2024 11:48 PM [facility] Chloride 90(L) 99 - 110 mEq/L 03/01/2024 11:48 PM [facility] Carbon Dioxide 33(H) 19 - 29 mEq/L 03/01/2024 11:48 PM [facility] Anion Gap 17.0(H) 3.0 - 15.0 mEq/L 03/01/2024 11:48 PM [facility] Blood Urea Nitrogen 9 5 - 24 mg/dL 03/01/2024 11:48 PM [facility] Creatinine 0.54 0.40 - 1.00 mg/dL 03/01/2024 11:48 PM [facility] Glomerular Filtration Rate 101 >60 mL/min/1. 73 m*2 03/01/2024 11:48 PM [facility] Comment:Risk of cardiovascul ar disease increases when GFR is abnormal; persistently reduced GFR values are a specific indication of CKD. This calculation uses CKD- EPI 2020 equation without adjustment for race; it has not been validated in women. Calcium 8.3(L) 8.4 - 10.5 mg/dL 03/01/2024 11:48 PM [facility] Glucose 111(H) 70 - 99 mg/dL 03/01/2024 11:48 PM [facility] Protein, Total 6.0 6.0 - 8.0 g/dL 03/01/2024 11:48 PM [facility] Albumin 2.5(L) 3.5 - 5.0 g/dL 03/01/2024 11:48 PM [facility] Alkaline Phosphatase 353(H) 40 - 150 IU/L 03/01/2024 11:48 PM [facility] Aspartate Aminotransferase 81(H) 10 - 40 IU/L 03/01/2024 11:48 PM [facility] Alanine Aminotransferase 33(H) 6 - 31 IU/L 03/01/2024 11:48 PM [facility] Bilirubin, Total 1.1 0.2 - 1.2 mg/dL 03/01/2024 11:[address] [facility] Blood BLOOD SPECIMEN / Unknown Venipuncture / Unknown 03/01/2024 11:17 PM CDT 03/01/2024 11:[address] [facility] - 03/01/2024 11:48 PM CDT Current ADA criteria for Glucose: ?Normal: 70-99 mg/dL ?Impaired Fasting Glucose: 100-125 mg/dL ?Diabetes Mellitus: at or above 126 mg/dL The diagnosis of diabetes must be confirmed on a subsequent day by measuring Fasting Plasma Glucose, 2-hr PG or random plasma glucose (if symptoms are present). Adeel Haque MD EC CHEMISTR Y ORDERABLES [facility] [address] [place] [address], [facility] * (ABNORMAL) HEMOGRAM/DIFFERENTIAL (03/01/2024 11:17 PM CDT) WBC 11.6(H) 3.2 - 11.0 10*9/L 03/01/2024 11:[address] [facility] RBC 2.40(L) 3.77 - 5.24 10*12/L 03/01/2024 11:[address] [facility] HGB 9.5(L) 11.2 - 15.5 g/dL 03/01/2024 11:[address] [facility] HCT 27.2(L) 34.3 - 46.0 % 03/01/2024 11:[address] [facility] MCV 113.3(H) 81.4 - 99.0 fL 03/01/2024 11:[address] [facility] MCH 39.6(H) 26.7 - 33.1 pg 03/01/2024 11:[address] [facility] MCHC 34.9 31.6 - 35.5 g/dL 03/01/2024 11:[address] [facility] RDW 16.6(H) 11.3 - 14.6 % 03/01/2024 11:[address] [facility] PLT 320 130 - 375 10*9/L 03/01/2024 11:[address] [facility] Neutrophils % 80.9 % 03/01/2024 11:[address] [facility] Lymphocytes % 12.9 % 03/01/2024 11:[address] [facility] Monocytes % 5.3 % 03/01/2024 11:[address] [facility] Eosinophils % 0.2 % 03/01/2024 11:[address] [facility] Basophils % 0.1 % 03/01/2024 11:[address] [facility] Immature Granulocytes % 0.6 % 03/01/2024 11:[address] [facility] Neutrophils Absolute 9.4(H) 1.5 - 7.6 10*9/L 03/01/2024 11:[address] [facility] Lymphocytes Absolute 1.5 0.8 - 3.3 10*9/L 03/01/2024 11:[address] [facility] Monocytes Absolute 0.6 0.2 - 0.9 10*9/L 03/01/2024 11:[address] [facility] Eosinophils Absolute 0.0 0.0 - 0.4 10*9/L 03/01/2024 11:[address] [facility] Basophils Absolute 0.0 0.0 - 0.1 10*9/L 03/01/2024 11:[address] [facility] Immature Granulocytes Absolute 0.07(H) 0.00 - 0.06 10*9/L 03/01/2024 11:[address] [facility] Blood BLOOD SPECIMEN / Unknown Venipuncture / Unknown 03/01/2024 11:17 PM CDT 03/01/2024 11:19 PM CDT Adeel Haque MD EC HEMATOLO GY ORDERABLES [facility] [address] [place] [id number] * (ABNORMAL) MAGNESIUM (03/01/2024 11:17 PM CDT) Magnesium 1.4(L) 1.8 - 2.7 mg/dL 03/01/2024 11:[address] [facility] Blood BLOOD SPECIMEN / Unknown Venipuncture / Unknown 03/01/2024 11:17 PM CDT 03/01/2024 11:19 PM CDT Adeel Haque MD EC CHEMISTR Y ORDERABLES [facility] [address] [place] [address] * ALCOHOL (03/01/2024 11:17 PM CDT) Pathologist [facility] Alcohol <10.0 <=10.0 mg/dL 03/02/2024 3:[address] [facility] Blood BLOOD SPECIMEN / Unknown Venipuncture / Unknown 03/01/2024 11:17 PM CDT 03/01/2024 11:19 PM CDT Parmjit Hurley MD EC CHEMISTRY ORDER NICKY Performing Organization Address [facility] Co de Phone Number [facility] [address] [place] [address] * (ABNORMAL) FERRITIN (03/01/2024 11:17 PM CDT) [facility] Ferritin 2,902(H) 10 - 200 ng/mL 03/02/2024 4:[address] [facility] Blood BLOOD SPECIMEN / Unknown Venipuncture / Unknown 03/01/2024 11:17 PM CDT 03/01/2024 11:19 PM CDT Parmjit Hurley MD EC CHEMISTRY ORDER NICKY ABN Performing Organization Address City/[facility]/ZIP Co de Phone Number [facility] [address] [place] [address] * (ABNORMAL) PHOSPHORUS (03/01/2024 11:17 PM CDT) Pathologist [facility] Phosphorus 2.3(L) 2.5 - 4.6 mg/dL 03/02/2024 4:[address] [facility] Blood BLOOD SPECIMEN / Unknown Venipuncture / Unknown 03/01/2024 11:17 PM CDT 03/01/2024 11:19 PM CDT Parmjit Hurley MD EC CHEMISTRY ORDER NICKY Performing Organization Address [facility] Co de Phone Number [facility] [address] * EKG 12-LEAD (03/01/2024 11:02 PM CDT) Only the most recent of2 resultswithin the time period is included. Pathologist [facility] Ventricular Rate 96 BPM MUSE Atrial Rate 96 BPM MUSE P-R Interval 174 ms MUSE QRS Duration 98 ms MUSE QT 328 ms MUSE QTc 414 ms MUSE P [place] 84 degrees MUSE R [place] 76 degrees MUSE T [place] 134 degrees MUSE 03/01/2024 11:0 2 PM CDT Narrative MUSE - 03/02/2024 8:08 AM CDT Confirming Doc Gagandeep Arredondo Poor data quality, interpretation may be adversely affected Normal sinus rhythm ST depression, consider subendocardial injury Nonspecific T wave abnormality Abnormal ECG When compared with ECG of 30-Jan-2024 16:39, Nonspecific T wave abnormality now evident in Inferior leads Nonspecific T wave abnormality, worse in Anterolateral leads QT has shortened Procedure Note Gagandeep Arredondo MD - 03/02/2024 Confirming Doc Gagandeep Arredondo Poor data quality, interpretation may be adversely affected Normal sinus rhythm ST depression, consider subendocardial injury Nonspecific T wave abnormality Abnormal ECG When compared with ECG of 30-Jan-2024 16:39, Nonspecific T wave abnormality now evident in Inferior leads Nonspecific T wave abnormality, worse in Anterolateral leads QT has shortened Adeel Haque MD IP ECG LAE RO[facility] MUSE * XR CHEST 2 VIEWS (03/01/2024 4:08 PM CDT) Anatomical Region Laterality Modality Chest Radiographic Aury ging 03/01/2024 4:08 PM CDT Narrative 03/01/2024 4:25 PM CDT This document is currently in Final Status Exam XR CHEST 2 VIEWS HISTORY: hypoxia; IMPRESSION: 08/28/2016 comparison. Retrocardiac/left lower lobe patchy opacities, correlate for pneumonia. No pleural effusion. No pneumothorax. Nonenlarged, nondisplaced cardiac size and position. Thoracic spondylosis. Calcified aortic arch. Electronically Signed: Alex Abbott 03/01/2024 4:25 PM Procedure Note Alex Abbott MD - 03/01/2024 This document is currently in Final Status Exam XR CHEST 2 VIEWS HISTORY: hypoxia; IMPRESSION: 08/28/2016 comparison. Retrocardiac/left lower lobe patchy opacities,correlate for pneumonia. No pleural effusion. No pneumothorax. Nonenlarged, nondisplaced cardiac size and position. Thoracic spondylosis.Calcified aortic arch. Electronically Signed: Alex Abbott 03/01/2024 4:25 PM Kyle Swann MD [facility] DIAGNOSTIC IMAGIN G ORDERABLES * (ABNORMAL) VITAMIN D TOTAL (03/01/2024 4:07 PM CDT) Vitamin D Total 5(L) 27 - 80 ng/mL 03/01/2024 8:[address] [facility] Blood BLOOD SPECIMEN / Unknown Venipuncture / Unknown 03/01/2024 4:07 PM CDT 03/01/2024 4:[address] [facility] - 03/01/2024 8:54 PM CDT ?[facility] Reference Range Deficiency ?<10 ?? ng/mL Insufficiency ?? 10-26 ng/mL Sufficiency ? 27-80 ng/mL Toxicity ?>80 ?? ng/mL Kyle Swann MD EC LAB SEND OUT MIAH NEVAREZ ABN [facility] [address] [place], [place] [id number] * (ABNORMAL) COMPREHENSIVE METABOLIC PANEL (03/01/2024 4:07 PM CDT) Sodium 139 134 - 143 mEq/L 03/01/2024 7:[address] [facility] Potassium 2.3(LL) 3.4 - 5.1 mEq/L 03/01/2024 7:[address] [facility] Chloride 88(L) 99 - 110 mEq/L 03/01/2024 7:[address] [facility] Carbon Dioxide 36(H) 19 - 29 mEq/L 03/01/2024 7:[address] [facility] Anion Gap 15.0 3.0 - 15.0 mEq/L 03/01/2024 7:[address] [facility] Blood Urea Nitrogen 9 5 - 24 mg/dL 03/01/2024 7:[address] [facility] Creatinine 0.58 0.40 - 1.00 mg/dL 03/01/2024 7:[address] [facility] Glomerular Filtration Rate 100 >60 mL/min/1. 73 m*2 03/01/2024 7:[address] [facility] Comment:Risk of cardiovascul ar disease increases when GFR is abnormal; persistently reduced GFR values are a specific indication of CKD. This calculation uses CKD- EPI 2020 equation without adjustment for race; it has not been validated in women. Calcium 8.6 8.4 - 10.5 mg/dL 03/01/2024 7:[address] [facility] Glucose 120(H) 70 - 99 mg/dL 03/01/2024 7:[address] [facility] Protein, Total 6.8 6.0 - 8.0 g/dL 03/01/2024 7:[address] [facility] Albumin 2.8(L) 3.5 - 5.0 g/dL 03/01/2024 7:[address] [facility] Alkaline Phosphatase 399(H) 40 - 150 IU/L 03/01/2024 7:[address] [facility] Aspartate Aminotransferase 88(H) 10 - 40 IU/L 03/01/2024 7:[address] [facility] Alanine Aminotransferase 37(H) 6 - 31 IU/L 03/01/2024 7:[address] [facility] Bilirubin, Total 1.2 0.2 - 1.2 mg/dL 03/01/2024 7:[address] [facility] Blood BLOOD SPECIMEN / Unknown Venipuncture / Unknown 03/01/2024 4:07 PM CDT 03/01/2024 4:[address] [facility] - 03/01/2024 7:45 PM CDT Current ADA criteria for Glucose: ?Normal: 70-99 mg/dL ?Impaired Fasting Glucose: 100-125 mg/dL ?Diabetes Mellitus: at or above 126 mg/dL The diagnosis of diabetes must be confirmed on a subsequent day by measuring Fasting Plasma Glucose, 2-hr PG or random plasma glucose (if symptoms are present). Kyle Swann MD EC CHEMISTRY ORDERAB LES Performing Organization Address [facility] Co de Phone Number [facility] [address] * (ABNORMAL) MAGNESIUM (03/01/2024 4:07 PM CDT) [facility] Magnesium 1.6(L) 1.8 - 2.7 mg/dL 03/01/2024 7:[address] [facility] Blood BLOOD SPECIMEN / Unknown Venipuncture / Unknown 03/01/2024 4:07 PM CDT 03/01/2024 4:12 PM CDT Kyle Swann MD EC CHEMISTRY ORDERAB LES Performing Organization Address [facility] Co de Phone Number [facility] [address] [place] [address] * (ABNORMAL) FOLATE, SERUM (03/01/2024 4:07 PM CDT) [facility] Folate <2.2(L) 7.0 - 31.4 ng/mL 03/01/2024 8:[address] [facility] Blood BLOOD SPECIMEN / Unknown Venipuncture / Unknown 03/01/2024 4:07 PM CDT 03/01/2024 4:[address] [facility] - 03/01/2024 8:13 PM CDT ?? Folate Reference Range Normal: ?7.0 - 31.4 ng/mL Indeterminate: ?? 3.5 - 6.9 ng/mL Deficient: ?<3.5 ng/mL Kyle Swann MD EC CHEMISTRY ORDERAB LES Performing Organization Address [facility] Co de Phone Number [facility] [address] [place] [address] * VITAMIN B12 (03/01/2024 4:07 PM CDT) [facility] Vitamin B12 785 213 - 816 pg/mL 03/01/2024 8:[address] [facility] Blood BLOOD SPECIMEN / Unknown Venipuncture / Unknown 03/01/2024 4:07 PM CDT 03/01/2024 4:12 PM CDT Kyle Swann MD EC CHEMISTRY ORDERAB LES Performing Organization Address [facility] Co de Phone Number [facility] [address] [place] [address] * HOLD NA CITRATE (02/12/2024 4:52 PM CDT) Blood BLOOD SPECIMEN / Unknown Venipuncture / Unknown 02/12/2024 4:52 PM CDT 02/12/2024 4:55 PM CDT Yaritza Barnes MD EC HEMATOLOGY ORDER NICKY Performing Organization Address [facility] Co de Phone Number [facility] [address] [place] [address] * HOLD ORTA TUBE (02/12/2024 4:51 PM CDT) Blood BLOOD SPECIMEN / Unknown Venipuncture / Unknown 02/12/2024 4:51 PM CDT 02/12/2024 4:54 PM CDT Yaritza BUNCH CHEMISTRY ORDERA BLES Performing Organization Address [facility] de Phone Number [facility] [address] [place] [address] * HOLD DARK GREEN WHOLE BLOOD TUBE (02/12/2024 4:51 PM CDT) Blood BLOOD SPECIMEN / Unknown Venipuncture / Unknown 02/12/2024 4:51 PM CDT 02/12/2024 4:54 PM CDT Yaritza Barnes MD EC LAB SEND OUT ORD ERABLES Performing Organization Address [facility] Phone Number [facility] [address] [place] [address] * HOLD LI HEPARIN (02/12/2024 4:51 PM CDT) Blood BLOOD SPECIMEN / Unknown Venipuncture / Unknown 02/12/2024 4:51 PM CDT 02/12/2024 4:55 PM CDT Yaritza BUNCH CHEMISTRY ORDERA BLES Performing Organization Address [facility] de Phone Number [facility] [address] [place] [address] * HOLD PURPLE TUBE (02/12/2024 4:51 PM CDT) Blood BLOOD SPECIMEN / Unknown Venipuncture / Unknown 02/12/2024 4:51 PM CDT 02/12/2024 4:55 PM CDT Yaritza BUNCH HEMATOLOGY ORDER NICKY Performing Organization Address [facility] de Phone Number [facility] [address] [place] [address] * HOLD SERUM TUBE (02/12/2024 4:51 PM CDT) Blood BLOOD SPECIMEN / Unknown Venipuncture / Unknown 02/12/2024 4:51 PM CDT 02/12/2024 4:55 PM CDT Yaritza Barnes MD EC CHEMISTRY ORDERA BLES [facility] [address] [place] [id number] * (ABNORMAL) BASIC METABOLIC PANEL (02/12/2024 4:51 PM CDT) Sodium 141 134 - 143 mEq/L 02/12/2024 5:[address] [facility] Potassium 2.3(LL) 3.4 - 5.1 mEq/L 02/12/2024 5:[address] [facility] Chloride 94(L) 99 - 110 mEq/L 02/12/2024 5:[address] [facility] Carbon Dioxide 35(H) 19 - 29 mEq/L 02/12/2024 5:[address] [facility] Anion Gap 12.0 3.0 - 15.0 mEq/L 02/12/2024 5:[address] [facility] Blood Urea Nitrogen 6 5 - 24 mg/dL 02/12/2024 5:[address] [facility] Creatinine 0.58 0.40 - 1.00 mg/dL 02/12/2024 5:[address] [facility] Glomerular Filtration Rate 100 >60 mL/min/1. 73 m*2 02/12/2024 5:[address] [facility] Comment:Risk of cardiovascul ar disease increases when GFR is abnormal; persistently reduced GFR values are a specific indication of CKD. This calculation uses CKD- EPI 2020 equation without adjustment for race; it has not been validated in women. Calcium 8.4 8.4 - 10.5 mg/dL 02/12/2024 5:[address] [facility] Glucose 128(H) 70 - 99 mg/dL 02/12/2024 5:[address] [facility] Blood BLOOD SPECIMEN / Unknown Venipuncture / Unknown 02/12/2024 4:51 PM CDT 02/12/2024 4:[address] [facility] - 02/12/2024 5:37 PM CDT Current ADA criteria for Glucose: ?Normal: 70-99 mg/dL ?Impaired Fasting Glucose: 100-125 mg/dL ?Diabetes Mellitus: at or above 126 mg/dL The diagnosis of diabetes must be confirmed on a subsequent day by measuring Fasting Plasma Glucose, 2-hr PG or random plasma glucose (if symptoms are present). Yaritza Barnes MD EC CHEMISTRY ORDERA BLES [facility] [address] * (ABNORMAL) HEPATIC FUNCTION PANEL (02/12/2024 4:51 PM CDT) Alkaline Phosphatase 306(H) 40 - 150 IU/L 02/12/2024 5:[address] [facility] Bilirubin, Total 1.1 0.2 - 1.2 mg/dL 02/12/2024 5:[address] [facility] Bilirubin, Direct 0.5 0.0 - 0.5 mg/dL 02/12/2024 5:[address] [facility] Bilirubin, Indirect 0.6 0.1 - 1.2 mg/dL 02/12/2024 5:[address] [facility] Albumin 2.9(L) 3.5 - 5.0 g/dL 02/12/2024 5:[address] [facility] Protein, Total 6.1 6.0 - 8.0 g/dL 02/12/2024 5:[address] [facility] Aspartate Aminotransferase 86(H) 10 - 40 IU/L 02/12/2024 5:[address] [facility] Alanine Aminotransferase 52(H) 6 - 31 IU/L 02/12/2024 5:[address] [facility] Blood BLOOD SPECIMEN / Unknown Venipuncture / Unknown 02/12/2024 4:51 PM CDT 02/12/2024 4:55 PM CDT Yaritza Barnes MD EC CHEMISTRY ORDERA BLES [facility] [address] * (ABNORMAL) HEMOGRAM/DIFFERENTIAL (02/12/2024 4:51 PM CDT) WBC 10.2 3.2 - 11.0 10*9/L 02/12/2024 4:[address] [facility] RBC 3.48(L) 3.77 - 5.24 10*12/L 02/12/2024 4:[address] [facility] HGB 13.4 11.2 - 15.5 g/dL 02/12/2024 4:[address] [facility] HCT 39.1 34.3 - 46.0 % 02/12/2024 4:[address] [facility] MCV 112.4(H) 81.4 - 99.0 fL 02/12/2024 4:[address] [facility] MCH 38.5(H) 26.7 - 33.1 pg 02/12/2024 4:[address] [facility] MCHC 34.3 31.6 - 35.5 g/dL 02/12/2024 4:[address] [facility] RDW 15.3(H) 11.3 - 14.6 % 02/12/2024 4:[address] [facility] PLT 287 130 - 375 10*9/L 02/12/2024 4:[address] [facility] Neutrophils % 79.6 % 02/12/2024 4:[address] [facility] Lymphocytes % 12.7 % 02/12/2024 4:[address] [facility] Monocytes % 6.3 % 02/12/2024 4:[address] [facility] Eosinophils % 0.7 % 02/12/2024 4:[address] [facility] Basophils % 0.3 % 02/12/2024 4:[address] [facility] Immature Granulocytes % 0.4 % 02/12/2024 4:[address] [facility] Neutrophils Absolute 8.1(H) 1.5 - 7.6 10*9/L 02/12/2024 4:[address] [facility] Lymphocytes Absolute 1.3 0.8 - 3.3 10*9/L 02/12/2024 4:[address] [facility] Monocytes Absolute 0.6 0.2 - 0.9 10*9/L 02/12/2024 4:[address] [facility] Eosinophils Absolute 0.1 0.0 - 0.4 10*9/L 02/12/2024 4:[address] [facility] Basophils Absolute 0.0 0.0 - 0.1 10*9/L 02/12/2024 4:[address] [facility] Immature Granulocytes Absolute 0.04 0.00 - 0.06 10*9/L 02/12/2024 4:[address] [facility] Blood BLOOD SPECIMEN / Unknown Venipuncture / Unknown 02/12/2024 4:51 PM CDT 02/12/2024 4:55 PM CDT Yaritza Barnes MD EC HEMATOLOGY ORDER NICKY Performing Organization Address City/[facility] Co de Phone Number [facility] [address] * (ABNORMAL) MAGNESIUM (02/12/2024 4:51 PM CDT) [facility] Magnesium 1.1(LL) 1.8 - 2.7 mg/dL 02/12/2024 5:[address] [facility] Blood BLOOD SPECIMEN / Unknown Venipuncture / Unknown 02/12/2024 4:51 PM CDT 02/12/2024 4:55 PM CDT Yaritza Barnes MD EC CHEMISTRY ORDERA BLES Performing Organization Address [facility] Co de Phone Number [facility] [address] [place] [address] * CREATINE KINASE (02/12/2024 4:51 PM CDT) Pathologist [facility] Creatine Kinase (CK) 38 25 - 145 IU/L 02/12/2024 5:[address] [facility] Blood BLOOD SPECIMEN / Unknown Venipuncture / Unknown 02/12/2024 4:51 PM CDT 02/12/2024 4:55 PM CDT Yartiza Barnes MD EC CHEMISTRY ORDERA BLES Performing Organization Address [facility] Co de Phone Number [facility] [address] [place] [address] * HOLD LI HEPARIN (01/30/2024 3:35 PM CDT) Blood BLOOD SPECIMEN / Unknown Venipuncture / Unknown 01/30/2024 3:35 PM CDT 01/30/2024 3:43 PM CDT Era Vang MD EC CHEMISTRY ORDER NICKY Performing Organization Address [facility] de Phone Number [facility] [address] [place] [address] * HOLD NA CITRATE (01/30/2024 3:35 PM CDT) Blood BLOOD SPECIMEN / Unknown Venipuncture / Unknown 01/30/2024 3:35 PM CDT 01/30/2024 3:43 PM CDT Era BUNCH HEMATOLOGY ORDSriram NEVAREZ Performing Organization Address [facility] de Phone Number [facility] [address] [place] [address] * HOLD PURPLE TUBE (01/30/2024 3:35 PM CDT) Blood BLOOD SPECIMEN / Unknown Venipuncture / Unknown 01/30/2024 3:35 PM CDT 01/30/2024 3:43 PM CDT Era BUNCH HEMATOLOGY ORDE ROQUE Performing Organization Address [facility] Co de Phone Number [facility] [address] [place] [address] * HOLD SERUM TUBE (01/30/2024 3:35 PM CDT) Blood BLOOD SPECIMEN / Unknown Venipuncture / Unknown 01/30/2024 3:35 PM CDT 01/30/2024 3:43 PM CDT Era Vang MD EC CHEMISTRY ORDER NICKY [facility] [address] [phone], [facility] * (ABNORMAL) COMPREHENSIVE METABOLIC PANEL (01/30/2024 3:35 PM CDT) Sodium 143 134 - 143 mEq/L 01/30/2024 4:[address] [facility] Potassium 2.6(LL) 3.4 - 5.1 mEq/L 01/30/2024 4:[address] [facility] Chloride 93(L) 99 - 110 mEq/L 01/30/2024 4:[address] [facility] Carbon Dioxide 34(H) 19 - 29 mEq/L 01/30/2024 4:[address] [facility] Anion Gap 16.0(H) 3.0 - 15.0 mEq/L 01/30/2024 4:[address] [facility] Blood Urea Nitrogen 15 5 - 24 mg/dL 01/30/2024 4:[address] [facility] Creatinine 0.66 0.40 - 1.00 mg/dL 01/30/2024 4:[address] [facility] Glomerular Filtration Rate 97 >60 mL/min/1. 73 m*2 01/30/2024 4:[address] [facility] Comment:Risk of cardiovascul ar disease increases when GFR is abnormal; persistently reduced GFR values are a specific indication of CKD. This calculation uses CKD- EPI 2020 equation without adjustment for race; it has not been validated in women. Calcium 9.3 8.4 - 10.5 mg/dL 01/30/2024 4:[address] [facility] Glucose 130(H) 70 - 99 mg/dL 01/30/2024 4:[address] [facility] Protein, Total 7.0 6.0 - 8.0 g/dL 01/30/2024 4:[address] [facility] Albumin 3.4(L) 3.5 - 5.0 g/dL 01/30/2024 4:[address] [facility] Alkaline Phosphatase 248(H) 40 - 150 IU/L 01/30/2024 4:[address] [facility] Aspartate Aminotransferase 106(H) 10 - 40 IU/L 01/30/2024 4:[address] [facility] Alanine Aminotransferase 54(H) 6 - 31 IU/L 01/30/2024 4:[address] [facility] Bilirubin, Total 0.9 0.2 - 1.2 mg/dL 01/30/2024 4:[address] [facility] Blood BLOOD SPECIMEN / Unknown Venipuncture / Unknown 01/30/2024 3:35 PM CDT 01/30/2024 3:43 PM CDT [facility] - 01/30/2024 4:26 PM CDT Current ADA criteria for Glucose: ?Normal: 70-99 mg/dL ?Impaired Fasting Glucose: 100-125 mg/dL ?Diabetes Mellitus: at or above 126 mg/dL The diagnosis of diabetes must be confirmed on a subsequent day by measuring Fasting Plasma Glucose, 2-hr PG or random plasma glucose (if symptoms are present). Era Vang MD EC CHEMISTRY ORDER NICKY [facility] [address] [place] [address] * (ABNORMAL) HEMOGRAM/DIFFERENTIAL (01/30/2024 3:35 PM CDT) WBC 8.6 3.2 - 11.0 10*9/L 01/30/2024 3:[address] [facility] RBC 3.90 3.77 - 5.24 10*12/L 01/30/2024 3:[address] [facility] HGB 14.8 11.2 - 15.5 g/dL 01/30/2024 3:[address] [facility] HCT 43.8 34.3 - 46.0 % 01/30/2024 3:[address] [facility] MCV 112.3(H) 81.4 - 99.0 fL 01/30/2024 3:[address] [facility] MCH 37.9(H) 26.7 - 33.1 pg 01/30/2024 3:[address] [facility] MCHC 33.8 31.6 - 35.5 g/dL 01/30/2024 3:[address] [facility] RDW 14.5 11.3 - 14.6 % 01/30/2024 3:[address] [facility] PLT 233 130 - 375 10*9/L 01/30/2024 3:[address] [facility] Neutrophils % 77.2 % 01/30/2024 3:[address] [facility] Lymphocytes % 15.7 % 01/30/2024 3[facility]47 [facility] Monocytes % 5.7 % 01/30/2024 3:47 [facility] Eosinophils % 0.7 % 01/30/2024 3:47 [facility] Basophils % 0.5 % 01/30/2024 3:[address] [facility] Immature Granulocytes % 0.2 % 01/30/2024 3:[address] [facility] Neutrophils Absolute 6.6 1.5 - 7.6 10*9/L 01/30/2024 3:47 PM [facility] Lymphocytes Absolute 1.3 0.8 - 3.3 10*9/L 01/30/2024 3:[address] [facility] Monocytes Absolute 0.5 0.2 - 0.9 10*9/L 01/30/2024 3:[address] [facility] Eosinophils Absolute 0.1 0.0 - 0.4 10*9/L 01/30/2024 3:[address] [facility] Basophils Absolute 0.0 0.0 - 0.1 10*9/L 01/30/2024 3:[address] [facility] Immature Granulocytes Absolute 0.02 0.00 - 0.06 10*9/L 01/30/2024 3:[address] [facility] Blood BLOOD SPECIMEN / Unknown Venipuncture / Unknown 01/30/2024 3:35 PM CDT 01/30/2024 3:43 PM CDT Era Vang MD EC HEMATOLOGY ORDE RABLES Performing Organization Address City/[facility] Co de Phone Number [facility] [address] [place] [address] * (ABNORMAL) MAGNESIUM (01/30/2024 3:35 PM CDT) Magnesium 1.3(L) 1.8 - 2.7 mg/dL 01/30/2024 4:[address] [facility] Blood BLOOD SPECIMEN / Unknown Venipuncture / Unknown 01/30/2024 3:35 PM CDT 01/30/2024 3:43 PM CDT Era Vang MD EC CHEMISTRY ORDER NICKY Performing Organization Address [facility] Co de Phone Number [facility] [address] [place] [address] * MAGNESIUM (01/13/2024 6:14 PM CDT) Magnesium 1.8 1.8 - 2.7 mg/dL 01/13/2024 6:[address] [facility] Blood BLOOD SPECIMEN / Unknown Venipuncture / Unknown 01/13/2024 6:14 PM CDT 01/13/2024 6:23 PM CDT Jose Smith DO EC CHEMISTRY ORDERAB LES Performing Organization Address [facility] Co de Phone Number [facility] [address] [place] [address] * POTASSIUM (01/13/2024 6:14 PM CDT) Potassium 3.8 3.4 - 5.1 mEq/L 01/13/2024 6:[address] [facility] Blood BLOOD SPECIMEN / Unknown Venipuncture / Unknown 01/13/2024 6:14 PM CDT 01/13/2024 6:23 PM CDT Jose Smith DO EC CHEMISTRY ORDERAB LES Performing Organization Address [facility] de Phone Number [facility] [address] [place] [address] * HOLD LI HEPARIN (01/13/2024 1:48 PM CDT) Blood BLOOD SPECIMEN / Unknown Venipuncture / Unknown 01/13/2024 1:48 PM CDT 01/13/2024 1:59 PM CDT Jose Smith DO EC CHEMISTRY ORDERAB LES Performing Organization Address [facility] Phone Number [facility] [address] [place] [address] * HOLD NA CITRATE (01/13/2024 1:48 PM CDT) Blood BLOOD SPECIMEN / Unknown Venipuncture / Unknown 01/13/2024 1:48 PM CDT 01/13/2024 1:59 PM CDT Jose Smith DO EC HEMATOLOGY ORDERA BLES Performing Organization Address [facility] Phone Number [facility] [address] [place] [address] * HOLD PURPLE TUBE (01/13/2024 1:48 PM CDT) Blood BLOOD SPECIMEN / Unknown Venipuncture / Unknown 01/13/2024 1:48 PM CDT 01/13/2024 1:59 PM CDT Jose Smith DO EC HEMATOLOGY ORDERA BLES Performing Organization Address [facility] de Phone Number [facility] [address] [place] [address] * HOLD SERUM TUBE (01/13/2024 1:48 PM CDT) Blood BLOOD SPECIMEN / Unknown Venipuncture / Unknown 01/13/2024 1:48 PM CDT 01/13/2024 1:59 PM CDT Jose Smith DO CHEMISTRY ORDERAB LES [facility] [address] [place] [id number], [facility] * (ABNORMAL) BASIC METABOLIC PANEL (01/13/2024 1:48 PM CDT) Sodium 140 134 - 143 mEq/L 01/13/2024 2:[address] [facility] Potassium 2.8(LL) 3.4 - 5.1 mEq/L 01/13/2024 2:[address] [facility] Chloride 94(L) 99 - 110 mEq/L 01/13/2024 2:[address] [facility] Carbon Dioxide 31(H) 19 - 29 mEq/L 01/13/2024 2:[address] [facility] Anion Gap 15.0 3.0 - 15.0 mEq/L 01/13/2024 2:[address] [facility] Blood Urea Nitrogen 13 5 - 24 mg/dL 01/13/2024 2:[address] [facility] Creatinine 0.72 0.40 - 1.00 mg/dL 01/13/2024 2:[address] [facility] Glomerular Filtration Rate 92 >60 mL/min/1. 73 m*2 01/13/2024 2:[address] [facility] Comment:Risk of cardiovascul ar disease increases when GFR is abnormal; persistently reduced GFR values are a specific indication of CKD. This calculation uses CKD- EPI 2020 equation without adjustment for race; it has not been validated in women. Calcium 8.7 8.4 - 10.5 mg/dL 01/13/2024 2:[address] [facility] Glucose 127(H) 70 - 99 mg/dL 01/13/2024 2:[address] [facility] Blood BLOOD SPECIMEN / Unknown Venipuncture / Unknown 01/13/2024 1:48 PM CDT 01/13/2024 1:[address] [facility] - 01/13/2024 2:45 PM CDT Current ADA criteria for Glucose: ?Normal: 70-99 mg/dL ?Impaired Fasting Glucose: 100-125 mg/dL ?Diabetes Mellitus: at or above 126 mg/dL The diagnosis of diabetes must be confirmed on a subsequent day by measuring Fasting Plasma Glucose, 2-hr PG or random plasma glucose (if symptoms are present). Jose Villalpando Luis DO EC CHEMISTRY ORDERAB LES Performing Organization Address [facility] de Phone Number [facility] [address] * (ABNORMAL) MAGNESIUM (01/13/2024 1:48 PM CDT) Magnesium 1.0(LL) 1.8 - 2.7 mg/dL 01/13/2024 2:[address] [facility] Blood BLOOD SPECIMEN / Unknown Venipuncture / Unknown 01/13/2024 1:48 PM CDT 01/13/2024 1:59 PM CDT Jose Smith DO EC CHEMISTRY ORDERAB LES Performing Organization Address [facility] de Phone Number [facility] [address] * (ABNORMAL) C-REACTIVE PROTEIN (01/12/2024 5:56 PM CDT) C-Reactive Protein 1.1(H) 0.0 - 0.8 mg/dL 01/12/2024 9:[address] [facility] Blood BLOOD SPECIMEN / Unknown Venipuncture / Unknown 01/12/2024 5:56 PM CDT 01/12/2024 6:04 PM CDT Jay Riggs APRN, TECHNICAL MAINTENANCE TECHNICIAN EC CHEMISTRY ORDERABLES Performing Organization Address [facility] de Phone Number [facility] [address] * (ABNORMAL) COMPREHENSIVE METABOLIC PANEL (01/12/2024 5:56 PM CDT) Sodium 139 134 - 143 mEq/L 01/12/2024 9:35 PM [facility] Potassium 3.0(L) 3.4 - 5.1 mEq/L 01/12/2024 9:35 PM [facility] Chloride 91(L) 99 - 110 mEq/L 01/12/2024 9:35 PM [facility] Carbon Dioxide 32(H) 19 - 29 mEq/L 01/12/2024 9:35 PM [facility] Anion Gap 16.0(H) 3.0 - 15.0 mEq/L 01/12/2024 9:35 PM [facility] Blood Urea Nitrogen 15 5 - 24 mg/dL 01/12/2024 9:35 PM [facility] Creatinine 0.74 0.40 - 1.00 mg/dL 01/12/2024 9:35 PM [facility] Glomerular Filtration Rate 89 >60 mL/min/1. 73 m*2 01/12/2024 9:35 PM [facility] Comment:Risk of cardiovascul ar disease increases when GFR is abnormal; persistently reduced GFR values are a specific indication of CKD. This calculation uses CKD- EPI 2020 equation without adjustment for race; it has not been validated in women. Calcium 9.0 8.4 - 10.5 mg/dL 01/12/2024 9:35 PM [facility] Glucose 124(H) 70 - 99 mg/dL 01/12/2024 9:35 PM [facility] Protein, Total 7.2 6.0 - 8.0 g/dL 01/12/2024 9:35 PM [facility] Albumin 3.6 3.5 - 5.0 g/dL 01/12/2024 9:35 PM [facility] Alkaline Phosphatase 265(H) 40 - 150 IU/L 01/12/2024 9:35 PM [facility] Aspartate Aminotransferase 107(H) 10 - 40 IU/L 01/12/2024 9:35 PM [facility] Alanine Aminotransferase 40(H) 6 - 31 IU/L 01/12/2024 9:35 PM [facility] Bilirubin, Total 1.2 0.2 - 1.2 mg/dL 01/12/2024 9:[address] [facility] Blood BLOOD SPECIMEN / Unknown Venipuncture / Unknown 01/12/2024 5:56 PM CDT 01/12/2024 6:[address] [facility] - 01/12/2024 9:35 PM CDT Current ADA criteria for Glucose: ?Normal: 70-99 mg/dL ?Impaired Fasting Glucose: 100-125 mg/dL ?Diabetes Mellitus: at or above 126 mg/dL The diagnosis of diabetes must be confirmed on a subsequent day by measuring Fasting Plasma Glucose, 2-hr PG or random plasma glucose (if symptoms are present). Jay Riggs APRN, CNP EC CHEMISTRY ORDERABLES [facility] [address] [place] [address], [facility] * (ABNORMAL) HEMOGRAM/DIFFERENTIAL (01/12/2024 5:56 PM CDT) WBC 8.3 3.2 - 11.0 10*9/L 01/12/2024 9:[address] [facility] RBC 4.23 3.77 - 5.24 10*12/L 01/12/2024 9:[address] [facility] HGB 15.8(H) 11.2 - 15.5 g/dL 01/12/2024 9:[address] [facility] HCT 47.5(H) 34.3 - 46.0 % 01/12/2024 9:[address] [facility] MCV 112.3(H) 81.4 - 99.0 fL 01/12/2024 9:[address] [facility] MCH 37.4(H) 26.7 - 33.1 pg 01/12/2024 9:[address] [facility] MCHC 33.3 31.6 - 35.5 g/dL 01/12/2024 9:[address] [facility] RDW 13.7 11.3 - 14.6 % 01/12/2024 9:[address] [facility] PLT 220 130 - 375 10*9/L 01/12/2024 9:[address] [facility] Neutrophils % 74.0 % 01/12/2024 9:[address] [facility] Lymphocytes % 16.7 % 01/12/2024 9:[address] [facility] Monocytes % 7.8 % 01/12/2024 9:[address] [facility] Eosinophils % 0.8 % 01/12/2024 9:[address] [facility] Basophils % 0.5 % 01/12/2024 9:[address] [facility] Immature Granulocytes % 0.2 % 01/12/2024 9:[address] [facility] Neutrophils Absolute 6.1 1.5 - 7.6 10*9/L 01/12/2024 9:[address] [facility] Lymphocytes Absolute 1.4 0.8 - 3.3 10*9/L 01/12/2024 9:[address] [facility] Monocytes Absolute 0.6 0.2 - 0.9 10*9/L 01/12/2024 9:[address] [facility] Eosinophils Absolute 0.1 0.0 - 0.4 10*9/L 01/12/2024 9:[address] [facility] Basophils Absolute 0.0 0.0 - 0.1 10*9/L 01/12/2024 9:[address] [facility] Immature Granulocytes Absolute 0.02 0.00 - 0.06 10*9/L 01/12/2024 9:[address] [facility] Blood BLOOD SPECIMEN / Unknown Venipuncture / Unknown 01/12/2024 5:56 PM CDT 01/12/2024 6:04 PM CDT Jay Riggs RESPIRATORY THERAPY MANAGER, TECHNICAL MAINTENANCE TECHNICIAN EC HEMATOLOGY ORDERABLES [facility] [address] [place] [address] * (ABNORMAL) MAGNESIUM (01/12/2024 5:56 PM CDT) Magnesium 1.1(LL) 1.8 - 2.7 mg/dL 01/12/2024 9:[address] [facility] Blood BLOOD SPECIMEN / Unknown Venipuncture / Unknown 01/12/2024 5:56 PM CDT 01/12/2024 6:04 PM CDT Jay Riggs APRN, TECHNICAL MAINTENANCE TECHNICIAN EC CHEMISTRY ORDERABLES Performing Organization Address [facility] de Phone Number [facility] [address] * LIPASE (01/12/2024 5:56 PM CDT) Lipase 33 12 - 84 IU/L 01/12/2024 9:[address] [facility] Blood BLOOD SPECIMEN / Unknown Venipuncture / Unknown 01/12/2024 5:56 PM CDT 01/12/2024 6:04 PM CDT Jay Riggs APRN, TECHNICAL MAINTENANCE TECHNICIAN EC CHEMISTRY ORDERABLES Performing Organization Address [facility] Phone Number [facility] [address] * MAMM DIGITAL SCREENING (02/01/2016 4:32 PM CDT) Anatomical Region Laterality Modality Breast Bilateral Mammography 02/01/2016 4:32 PM CDT Narrative 02/04/2016 4:29 PM CDT This document is currently in Final Status Exam MAMM DIGITAL SCREENING COMPARISON: 09/25/2010, 05/04/2007, 12/09/2004 TECHNICAL: Standard MLO and CC views of both breasts acquired. Computer-Aided Detection System was utilized. BREAST DENSITY: There are scattered areas of fibroglandular density. FINDINGS: No suspicious masses, architectural distortion, skin thickening, nipple retraction, or suspicious calcifications are appreciated. IMPRESSION: No suspicious radiographic findings. Routine followup recommended with mammogram in 1 year. BI-RADS 1: Negative. Dictated By: Radha King MD 02/04/2016 3:08 PM Edited By: NURIA 02/04/2016 3:09 PM Electronically Signed: Radha King MD 02/04/2016 4:29 PM Procedure Note Radha King MD - 02/04/2016 This document is currently in Final Status Exam MAMM DIGITAL SCREENING COMPARISON: 09/25/2010, 05/04/2007, 12/09/2004 TECHNICAL: Standard MLO and CC views of both breasts acquired. Computer-Aided Detection System was utilized. BREAST DENSITY: There are scattered areas of fibroglandular density. FINDINGS: No suspicious masses, architectural distortion, skin thickening,nipple retraction, or suspicious calcifications are appreciated. IMPRESSION: No suspicious radiographic findings. Routine followuprecommended with mammogram in 1 year. BI-RADS 1: Negative. Dictated By: Radha King MD 02/04/2016 3:08 PM Edited By: NURIA 02/04/2016 3:09 PM Electronically Signed: Radha King MD 02/04/2016 4:29 PM Margo BELL EC MAMMOGRAPHY ORDER NICKY from Last 3 Months or Most Recently Relevant to Health Maintenance Additional Health Concerns Infection Onset Date Last Indicated History of C difficile 01/13/2024 4 Advance Directives For more information, please contact: [phone] * Full Code (Latest Code Status on File) Date Activated Date Inactivated Comments 03/02/2024 3:56 AM 03/05/2024 10:03 PM * No Code Status Date Activated Date Inactivated Comments 08/31/2003 5:09 PM 08/31/2003 5:09 PM Care Teams Manager Inventory Management Relationship Specialty Start Date End Date Kyle Swann MD [address] [place] [address] PCP - General Family Medicine 02/12/24 Karla Madera, RN Book Packer 12/13/22
--- OUTSIDE RECORDS SUMMARY | 2024-03-10 13:25 | XMS_ITS | Encounter Summary ---
Author Organization [facility] Address [address] [place] [id number] Phone Care Team Providers Care Digital Watch Assembler Name Role Phone SantyKarla blunt RN Unavailable [phone] Encounter Details Date Type Department Care Team (Latest Contact Info) Description 01/30/2024 Travel Social History Tobacco Use Types Packs/Day Years Used Date Smoking Tobacco: Every Day Cigarettes 1.5 40 Smokeless Tobacco: Never Comments:1 pack Alcohol Use Standard Drinks/Week Comments Yes 0 (1 standard drink = 0.6 oz pur e alcohol) five drinks per week Overall Financial Resource Strain (CARDIA) Answe r Date Recorded How hard is it for you to pa y for the very basics like food, housing, medical care, and heating? Not hard at all 08/28/2022 PHQ-2 Answer Date Recorded PHQ-2 Total 0 01/12/2024 Hunger Vital Sign Answer Date Recorded Within the past 12 months, y ou worried that your food would run out before you got the money to buy more. Never true 08/29/19 23 Within the past 12 months, t he food you bought just didn't last and you didn't have money to get more. Never true 08/28/2022 PRAPARE - Transportation Answer Date Re corded In the past 12 months, has l ack of transportation kept you from medical appointments or from getting medications? No 08/13 In the past 12 months, has l ack of transportation kept you from meetings, work, or from getting things needed for daily living? No 08/28/2022 EH IP Custom IPV Answer Date Recorded [...] Adequate to Safely Complete Daily Activities Yes 01/30/2024 Patient's Memory Adequate to Safely Complete Daily Activities Yes 01/30/2024 Cognitive Status Response Date of Assessm ent Patient's Judgment Adequate to Safely Complete Daily Activities Yes 01/30/2024 documented as of this encounter Plan of Treatment Upcoming Encounters Date Type Department Care Team (Late st Contact Info) Description 03/17/2024 2:20 PM CDT Appointment [facility] [address] [place], [place] [phone] Megan Herring PA-C [address] [place] [phone] documented as of this encounter Visit Diagnoses Not on filedocumented in this encounter Additional Health Concerns Infection Onset Date Last Indicated Resolved Time C difficile 01/13/2024 01/13/2024 03/02/2024 8:01 AM CDT History of C difficile 01/13/2024 01/13/2024 documented as of this encounter Care Teams Digital Watch Assembler Relationship Specialty Start Date End Date Karla Madera RN Car Restorer 12/13/22 documented as of this encounter
--- OUTSIDE RECORDS SUMMARY | 2024-03-10 13:25 | XMS_ITS | Encounter Summary ---
Author Organization [facility] [employer] [facility] Address [address] [place] [address] Phone Care Team Providers Care Overlock Waistline Joiner Name Role Phone Karla Madera RN Unavailable [phone] Kyle Swann MD Primary Care Provider [phone] Encounter Details Date Type Department Care Team (Latest Contact Info) Description 02/12/2024 Travel Social History Tobacco Use Types Packs/Day [...] Adequate to Safely Complete Daily Activities Yes 02/12/2024 Patient's Memory Adequate to Safely Complete Daily Activities Yes 02/12/2024 Cognitive Status Response Date of Assessm ent Patient's Judgment Adequate to Safely Complete Daily Activities Yes 02/12/2024 documented as of this encounter Plan of Treatment Upcoming Encounters Date Type Department Care Team (Late st Contact Info) Description 03/17/2024 2:20 PM CDT Appointment [facility] [address] [place], [place] [address] Megan Herring PA-C [address] [place] [phone] documented as of this encounter Visit Diagnoses Not on filedocumented in this encounter Additional Health Concerns Infection Onset Date Last Indicated Resolved Time C difficile 01/13/2024 01/13/2024 03/02/2024 8:01 AM CDT History of C difficile 01/13/2024 01/13/2024 documented as of this encounter Care Teams Overlock Waistline Joiner Relationship Specialty Start Date End Date Kyle Swann MD [address] [place] [address] PCP - General Family Medicine 02/12/24 Karla Madera, RN Sewer Hand 12/13/22 documented as of this encounter
--- OUTSIDE RECORDS SUMMARY | 2024-03-10 13:25 | XMS_ITS | Encounter Summary ---
Author Organization [facility] Address [address] [place] [address] Phone Care Team Providers Care Integration Engineer Name Role Phone Karla Madera RN Unavailable [phone] Kyle Swann MD Primary Care Provider [phone] Reason for Referral * Office Visit (Urgent) - Pending Review Specialty Diagnoses / Procedures Referred By Contac t Referred To Contact Infectious Diseases Diagnoses C. difficile diarrhea Yaritza Barnes MD [address] [place] [id number] Referral ID Status Reason Start Date Expiration Date V isits Requested Visits Authorized [id number] Pending Review 02/12/2024 08/13/2024 1 1 Scheduling Instructions If possible, please schedule with the same provider if patient has been seen in the past. If any questions regarding referral or treatment plans, please contact the department through [employer] direct. Location of Main Infectious Disease: [address] [place] [address], 3rd Floor [place] on 3rd Floor Parking in [address] [place] [address] Question Answer What type of Infectious Disease care are you looking for? (Primary Concern - Choose from options provided or type in a fowler word e.g. Lyme) Other [1] Does the patient want to schedule their appointment prior to leaving today? 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 difficile diarrhea (Primary Dx); Hypomagnesemia; Hypokalemia Discharge Disposition: Home and/or Self Care Social [...] Sign Reading Time Taken Comments Blood Pressure 114/64 02/12/2024 9:00 PM CDT Pulse 99 02/12/2024 9:00 PM CDT Temperature 36.7 ??C (98.1 ??F) 02/12/2024 3:53 PM CD T Respiratory Rate 16 02/12/2024 9:00 PM CDT Oxygen Saturation 93% 02/12/2024 9:00 PM CDT Inhaled Oxygen Concentration - - Weight - - Height - - Body Mass Index - - documented in this encounter Functional Status Functional Status Response Date of Assess ment Patient's Vision Adequate to Safely Complete Daily Activities Yes 02/12/2024 Patient's Memory Adequate to Safely Complete Daily Activities Yes 02/12/2024 Cognitive Status Response Date of Assessm ent Patient's Judgment Adequate to Safely Complete Daily Activities Yes 02/12/2024 documented as of this encounter Discharge Instructions * Discharge Instructions* Yaritza Barnes MD - 02/12/2024 11:03 PM CDT Start vancomycin 4 times daily x 7 days then taper. Follow-up as soon as possible with infectious disease. Take potassium and magnesium supplements. Continue to push fluids. Return to emergency department with fever, abdominal pain, any worsening symptoms. documented in this encounter Medications at Time of Discharge Medication Sig Dispensed Refills Start Date End Date metoprolol succinate (Toprol-XL) 100 MG 24 hour extended-release tabletIndications:Essent ial hypertension with goal blood pressure less than 140/90 Take 0.5 Tablets by mouth one time a day. Do not crush or chew. 45 Tablet 1 10/12/2023 ASPIRIN 81 MG OR TABS 1 tablet once daily 100 3 09/13/2007 potassium chloride CR (K-Dur, Klor-Con M) 20 MEQ tablet Take 1 Tablet by mouth one time a day for 5 days. Do not crush. 5 Tablet 02/12/2024 02/19/2024 documented as of this encounter Ordered Prescriptions Prescription Sig Dispensed Refills Start Date End Da te magnesium oxide (Mag-Ox) 400 MG tablet Take 2 Tablets by mouth one time a day. 10 Tablet 02/12/2024 03/01/2024 potassium chloride CR (K-Dur, Klor-Con M) 20 MEQ tablet Take 1 Tablet by mouth one time a day for 5 days. Do not crush. 5 Tablet 02/12/2024 02/19/2024 vancomycin (Vancocin) 125 MG capsuleIndications:Cl ostridioides Difficile Colitis Take 1 Capsule by mouth four times a day for 7 days, THEN 1 Capsule two times a day for 7 days, THEN 1 Capsule one time a day for 7 days, THEN 1 Capsule every 48 hours for 14 days. Indications: Colon Inflammation due to Clostridium Bacteria Overgrowth 56 Capsule 02/12/2024 03/05/2024 documented in this encounter Discharge Disposition Disposition Code Departure Means Destination Home and/or Self Correction documented in this encounter ED Notes * Yaritza Barnes MD - 02/12/2024 4:23 PM CDT Images from the original note were not included. Patient: Yas Rivera Means of Arrival: Car Chief Complaint: Diarrhea History of Present Illness: HPI 64 yo f presents to ED with diarrhea, diagnosed with cdiff on 01/12 and completed a course of vancomycin PO x10 days, no improvement of symptoms so started on Fidaxomicin [id number]. She took 7 days but felt it was causing severe muscle pain to her legs so she stopped 3 days ago. She notes continued diarrhea, 20 stools daily of watery, non bloody stool. She notes nausea without vomiting. No fever, noabdominal pain. She did not feel imodium was helpful. Review of Systems Allergies Allergen Reactions Benzoyl Peroxide RASH allergic contact dermatitis allergic contact dermatitis allergic contact dermatitis Benzoyl Peroxide allergic contact dermatitis Environmental Some metals Latex Pruritis Prior to Admission Medication List Med List Status: Completed by Nurse Set By: Chana Cruz RN at 02/12/2024 5:00 PM ASPIRIN 81 MG OR TABS 1 tablet once daily hydroCHLOROthiazide (Microzide) 12.5 MG capsule Take 1 Capsule by mouth one time a day. metoprolol succinate (Toprol-XL) 100 MG 24 hour extended-release tablet Take 0.5 Tablets by mouth one time a day. Do not crush or chew. ondansetron (Zofran ODT) 4 MG disintegrating tablet Take 1 Tablet by mouth every eight hours as needed for Nausea or Vomiting. Past Medical History: Past Medical History: Diagnosis Date Abdominal pain [...] hypothyroidism 12/21/1996 history of Past Surgical History: Past Surgical History: Procedure Laterality Date BIOPSY/EXCISION, LYMPH NODE(S) 05/13/2000 biopsy of deep right inguinal groin lymph node with benign results COLONOSCOPY,DARRELL FERMIN,SNARE 05/12/2007 COLPOSCOPY,BX CERVIX/ENDOCERV CURR 09/12/2002 benign endocervical [...] SIDE 2 OBL VWS 07/19/2002 negative Family History: Family History Problem Relation Name Age of Onset Cancer Maternal Grandmother gallbladder - unknown maternal/paternal/liver cancer Cardiovascular Disease Maternal Grandmother coronary artery disease Hypertension Mother Ophthalmic Disease Mother glaucoma, mac. degen. Prostate Cancer Father Blood Disease Father Rare blood cancer Acne Father Addiction Maternal Grandfather alcohol abuse - unknown maternal/paternal Neuro Disease Maternal Grandfather MS - in 70's Cardiovascular Disease Paternal Grandmother coronary artery disease Cardiovascular Disease Paternal Grandfather coronary artery disease Other Endocrine Disease Sister thyroid disease Social History: Social History Tobacco Use Smoking status: Every Day Current packs/day: 1.50 Average packs/day: 1.5 packs/day for 40.0 years (60.0 ttl pk-yrs) Types: Cigarettes Smokeless tobacco: Never Tobacco comments: 1 pack Vaping Use Vaping status: Never Used Substance Use Topics Alcohol use: Yes Comment: five drinks per week Drug use: No Comment: denies any use Exam: Initial Vitals Most Recent Vitals Temp: 36.7 ??C (98.1 ??F) (02/12/24 1553) Temp: 36.7 ??C (98.1 ??F) (02/12/24 1553) Pulse: 102 (02/12/24 1553) Pulse: 99 (02/12/24 2100) Resp: 18 (02/12/24 1553) Resp: 16 (02/12/24 2100) BP: (!) 145/84 (02/12/24 1553) BP: 114/64 (02/12/24 2100) SpO2: 94 % (02/12/24 1553) SpO2: 93 % (02/12/24 2100) Physical Exam: Physical Exam Vitals and nursing note reviewed. Constitutional: General: She is not in acute distress. Appearance: She is well-developed. HENT: Head: Normocephalic and atraumatic. Eyes: Pupils: Pupils are equal, round, and reactive to light. Cardiovascular: Rate and Rhythm: Normal rate and regular rhythm. Heart sounds: Normal heart sounds. No murmur heard. Pulmonary: Effort: Pulmonary effort is normal. No respiratory distress. Breath sounds: Normal breath sounds. No stridor. No wheezing. Chest: Chest wall: No tenderness. Abdominal: General: Bowel sounds are normal. There is no distension. Palpations: Abdomen is soft. Tenderness: There is no abdominal tenderness. There is no rebound. Musculoskeletal: General: No tenderness. Normal range of motion. Cervical back: Normal range of motion and neck supple. Right lower leg: No edema. Left lower leg: No edema. Skin: General: Skin is warm and dry. Capillary Refill: Capillary refill takes less than 2 seconds. Findings: No rash. Neurological: General: No focal deficit present. Mental Status: She is alert and oriented to person, place, and time. Lab Results: Results for orders placed or performed during the hospital encounter of 02/12/24 BASIC METABOLIC PANEL Collection Time: 02/12/24 4:51 PM Result Value Ref Range Sodium 141 134 - 143 mEq/L Potassium 2.3 (LL) 3.4 - 5.1 mEq/L Chloride 94 (L) 99 - 110 mEq/L Carbon Dioxide 35 (H) 19 - 29 mEq/L Anion Gap 12.0 3.0 - 15.0 mEq/L Blood Urea Nitrogen 6 5 - 24 mg/dL Creatinine 0.58 0.40 - 1.00 mg/dL Glomerular Filtration Rate 100 >60 mL/min/1.73 m*2 Calcium 8.4 8.4 - 10.5 mg/dL Glucose 128 (H) 70 - 99 mg/dL HEPATIC FUNCTION PANEL Collection Time: 02/12/24 4:51 PM Result Value Ref Range Alkaline Phosphatase 306 (H) 40 - 150 IU/L Bilirubin, Total 1.1 0.2 - 1.2 mg/dL Bilirubin, Direct 0.5 0.0 - 0.5 mg/dL Bilirubin, Indirect 0.6 0.1 - 1.2 mg/dL Albumin 2.9 (L) 3.5 - 5.0 g/dL Protein, Total 6.1 6.0 - 8.0 g/dL Aspartate Aminotransferase 86 (H) 10 - 40 IU/L Alanine Aminotransferase 52 (H) 6 - 31 IU/L HEMOGRAM/DIFFERENTIAL Collection Time: 02/12/24 4:51 PM Result Value Ref Range WBC 10.2 3.2 - 11.0 10*9/L RBC 3.48 (L) 3.77 - 5.24 10*12/L HGB 13.4 11.2 - 15.5 g/dL HCT 39.1 34.3 - 46.0 % MCV 112.4 (H) 81.4 - 99.0 fL MCH 38.5 (H) 26.7 - 33.1 pg MCHC 34.3 31.6 - 35.5 g/dL RDW 15.3 (H) 11.3 - 14.6 % PLT 287 130 - 375 10*9/L Neutrophils % 79.6 % Lymphocytes % 12.7 % Monocytes % 6.3 % Eosinophils % 0.7 % Basophils % 0.3 % Immature Granulocytes % 0.4 % Neutrophils Absolute 8.1 (H) 1.5 - 7.6 10*9/L Lymphocytes Absolute 1.3 0.8 - 3.3 10*9/L Monocytes Absolute 0.6 0.2 - 0.9 10*9/L Eosinophils Absolute 0.1 0.0 - 0.4 10*9/L Basophils Absolute 0.0 0.0 - 0.1 10*9/L Immature Granulocytes Absolute 0.04 0.00 - 0.06 10*9/L MAGNESIUM Collection Time: 02/12/24 4:51 PM Result Value Ref Range Magnesium 1.1 (LL) 1.8 - 2.7 mg/dL CREATINE KINASE Collection Time: 02/12/24 4:51 PM Result Value Ref Range Creatine Kinase (CK) 38 25 - 145 IU/L Imaging Results: Imaging Results None Emergency Department Course: 64 yo f presents to ED with ongoing diarrhea with known cdiff despite vancomycin and fidaxomicin. Vital signs show mild tachycardia/HTN. Patient's abdominal exam is benign. Patient discussed with Dr. Cespedes via secure chat who recommends PO vancomycin and follow-up in ID clinic does not require admission. Patient's lab work shows hypokalemia and hypomagnesia consistent with her significant diarrhea. Magnesium and potassium replacement ordered. I did offer further hospital admission for electrolyte replacement however patient would like to get discharged after electrolyte replacement. Patient was given 4 g of IV magnesium, 40 mEq of oral magnesium as well as 40 mEq IV. On repeat exam she denies abdominal pain and has no tenderness on exam. She is tolerating p.o. Patient will complete a course of vancomycin and follow-up with infectious disease, referral was placed. I also provide potassium and magnesium replacements to take at home. She will continue to pushfluids. She will return to the emergency department for any worsening symptoms questions answered. Medications vancomycin (Vancocin) capsule 125 mg (125 mg Oral Given 02/12/242245) Followed by vancomycin (Vancocin) capsule 125 mg (has no administration in time range) Followed by vancomycin (Vancocin) capsule 125 mg (has no administration in time range) Followed by vancomycin (Vancocin) capsule 125 mg (has no administration in time range) magnesium sulfate 2 g in 50 mL water for infusion (pre-mix) (0 g Intravenous Stopped 02/12/242042) potassium chloride 10 mEq/100 mL infusion 10 mEq (0 mEq Intravenous Stopped 02/12/242253) potassium chloride (Klor-Con) packet 40 mEq (40 mEq Oral Given 02/12/241838) Procedures: Procedures Medical Decision Making Assessment: C. difficile diarrhea (Primary) Hypomagnesemia Hypokalemia Plan: Discharge Prescriptions Medication Sig Dispense Start Date End Date Auth. Provider vancomycin (Firvanq) 25 MG/ML oral solution Take 5 mL by mouth four times a day for 7 days, THEN 5 mL two times a day for 7 days, THEN 5 mL one time a day for 7 days, THEN 5 mL every 48 hours for 14 days. Discard remainder. Indications: Colon Inflammation due to Clostridium Bacteria Overgrowth 280 mL 02/12/2024 03/18/2024 Yaritza Barnes MD potassium chloride CR (K-Dur, Klor-Con M) 20 MEQ tablet Take 1 Tablet by mouth one time a day for 5days. Do not crush. 5 Tablet 02/12/2024 02/17/2024 Yaritza Barnes MD Magnesium Oxide 400 MG capsule Take 2 Capsules by mouth one time a day. 10 Capsule 02/12/2024 -- Yaritza Barnes MD Disposition: ED Disposition ED Disposition Discharge Condition Stable Comment Remember, your care today was on an emergency basis and treatment was not intended to be a substitute for ongoing medical care from your primary care physician. If you came to the Emergency Room for treatment of a wound, sore, or cut of some sort AND/OR if youhave had an injection, an IV treatment or blood drawn, please watch that area carefully for the following signs of infection and seek professional medical treatment immediately: Redness, pain, swelling, or drainage at the site, or you d evelop a fever greater than 100 degrees Fahrenheit measured orally. If you had a lab, xray, or other tests while in the ED please review with your primary doctor. Discharge Instructions Start vancomycin 4 times daily x 7 days then taper. Follow-up as soon as possible with infectious disease. Take potassium and magnesium supplements. Continue to push fluids. Return to emergency department with fever, abdominal pain, any worsening symptoms. ExitCare Instructions None Yaritza Barnes MD 02/12/24 [id number] * Raffi Baugh RN - 02/12/2024 3:53 PM CDT Pt arrives with complaint of diarrhea. Pt has known C.Diff and has tried two different abx for treatment which has not worked. Pt states having over 20+ bowel movements a day. documented in this encounter Plan of Treatment Upcoming Encounters Date Type Department Care Team (Late st Contact Info) Description 03/17/2024 2:20 PM CDT Appointment [facility] [address] [place] [address] Megan Herring PA-C [address] [place] [address] Scheduled Referrals Name Type Priority Associated Diagnoses Orde r Schedule APPT WITH INFECTIOUS DISEASE [facility] REFERRAL Routine C. difficile diarrhea Ordered: 02/12/2024 documented as of this encounter Procedures Procedure Name Priority Date/Time Associated Diagnosis Comments HOLD NA CITRATE STAT 02/12/2024 4:52 PM CDT HOLD ORTA TUBE STAT 02/12/2024 4:51 PM CDT HOLD DARK GREEN WHOLE BLOOD TUBE STAT 02/12/2024 4:51 PM CDT RAINBOW DRAW STAT 02/12/2024 4:51 PM CDT HOLD LI HEPARIN STAT 02/12/2024 4:51 PM CDT HOLD EDTA STAT 02/12/2024 4:51 PM CDT HOLD SERUM TUBE STAT 02/12/2024 4:51 PM CDT BASIC METABOLIC PANEL STAT 02/12/2024 4:51 PM CDT HEPATIC FUNCTION PANEL STAT 02/12/2024 4:51 PM CDT HEMOGRAM/DIFF STAT 02/12/2024 4:51 PM CDT MAGNESIUM STAT 02/12/2024 4:51 PM CDT CREATINE KINASE STAT 02/12/2024 4:51 PM CDT documented in this encounter Results * HOLD NA CITRATE (02/12/2024 4:52 PM CDT) Blood BLOOD SPECIMEN / Unknown Venipuncture / Unknown 02/12/2024 4:52 PM CDT 02/12/2024 4:55 PM CDT Yaritza Barnes MD EC HEMATOLOGY ORDER NICKY Performing Organization Address [facility] de Phone Number [facility] [address] [place] [address] * HOLD DARK GREEN WHOLE BLOOD TUBE (02/12/2024 4:51 PM CDT) Blood BLOOD SPECIMEN / Unknown Venipuncture / Unknown 02/12/2024 4:51 PM CDT 02/12/2024 4:54 PM CDT Yaritza BUNCH LAB SEND OUT ORD ERABLES Performing Organization Address [facility] Co de Phone Number [facility] [address] [place] [address] * HOLD ORTA TUBE (02/12/2024 4:51 PM CDT) Blood BLOOD SPECIMEN / Unknown Venipuncture / Unknown 02/12/2024 4:51 PM CDT 02/12/2024 4:54 PM CDT Yaritza Barnes MD EC CHEMISTRY ORDERA BLES Performing Organization Address [facility] de Phone Number [facility] [address] [place] [address] * HOLD SERUM TUBE (02/12/2024 4:51 PM CDT) Blood BLOOD SPECIMEN / Unknown Venipuncture / Unknown 02/12/2024 4:51 PM CDT 02/12/2024 4:55 PM CDT Yaritza Barnes MD EC CHEMISTRY ORDERA BLES Performing Organization Address [facility] de Phone Number [facility] [address] [place] [address] * HOLD LI HEPARIN (02/12/2024 4:51 PM CDT) Blood BLOOD SPECIMEN / Unknown Venipuncture / Unknown 02/12/2024 4:51 PM CDT 02/12/2024 4:55 PM CDT Yaritza Barnes MD EC CHEMISTRY ORDERA BLES Performing Organization Address [facility] de Phone Number [facility] [address] [place] [address] * HOLD PURPLE TUBE (02/12/2024 4:51 PM CDT) Blood BLOOD SPECIMEN / Unknown Venipuncture / Unknown 02/12/2024 4:51 PM CDT 02/12/2024 4:55 PM CDT Yaritza Barnes MD EC HEMATOLOGY ORDER NICKY Performing Organization Address [facility] de Phone Number [facility] [address] [place] [address] * (ABNORMAL) HEPATIC FUNCTION PANEL (02/12/2024 4:51 PM CDT) Pathologist [facility] Alkaline Phosphatase 306(H) 40 - 150 IU/L 02/12/2024 5:33 PM CDT [facility] Bilirubin, Total 1.1 0.2 - 1.2 mg/dL 02/12/2024 5:33 PM CDT [facility] Bilirubin, Direct 0.5 0.0 - 0.5 mg/dL 02/12/2024 5:33 PM CDT [facility] Bilirubin, Indirect 0.6 0.1 - 1.2 mg/dL 02/12/2024 5:33 PM CDT [facility] Albumin 2.9(L) 3.5 - 5.0 g/dL 02/12/2024 5:33 PM CDT [facility] Protein, Total 6.1 6.0 - 8.0 g/dL 02/12/2024 5:33 PM CDT [facility] Aspartate Aminotransferase 86(H) 10 - 40 IU/L 02/12/2024 5:33 PM CDT [facility] Alanine Aminotransferase 52(H) 6 - 31 IU/L 02/12/2024 5:33 PM CDT [facility] Blood BLOOD SPECIMEN / Unknown Venipuncture / Unknown 02/12/2024 4:51 PM CDT 02/12/2024 4:55 PM CDT Yaritza Barnes MD EC CHEMISTRY ORDERA BLES Performing Organization Address City/[facility]/ZIP Co de Phone Number [facility] [address] * CREATINE KINASE (02/12/2024 4:51 PM CDT) Creatine Kinase (CK) 38 25 - 145 IU/L 02/12/2024 5:33 PM CDT [facility] Blood BLOOD SPECIMEN / Unknown Venipuncture / Unknown 02/12/2024 4:51 PM CDT 02/12/2024 4:55 PM CDT Yaritza Barnes MD EC CHEMISTRY ORDERA BLES Performing Organization Address City/[facility]/ZIP Co de Phone Number [facility] [address] [place] [address] * (ABNORMAL) MAGNESIUM (02/12/2024 4:51 PM CDT) Magnesium 1.1(LL) 1.8 - 2.7 mg/dL 02/12/2024 5:37 PM CDT [facility] Blood BLOOD SPECIMEN / Unknown Venipuncture / Unknown 02/12/2024 4:51 PM CDT 02/12/2024 4:55 PM CDT Yaritza Barnes MD EC CHEMISTRY ORDERA BLES [facility] [address] [place], [place] [address] * (ABNORMAL) BASIC METABOLIC PANEL (02/12/2024 4:51 PM CDT) Sodium 141 134 - 143 mEq/L 02/12/2024 5:37 PM CDT [facility] Potassium 2.3(LL) 3.4 - 5.1 mEq/L 02/12/2024 5:37 PM CDT [facility] Chloride 94(L) 99 - 110 mEq/L 02/12/2024 5:37 PM CDT [facility] Carbon Dioxide 35(H) 19 - 29 mEq/L 02/12/2024 5:37 PM CDT [facility] Anion Gap 12.0 3.0 - 15.0 mEq/L 02/12/2024 5:37 PM CDT [facility] Blood Urea Nitrogen 6 5 - 24 mg/dL 02/12/2024 5:37 PM CDT [facility] Creatinine 0.58 0.40 - 1.00 mg/dL 02/12/2024 5:37 PM CDT [facility] Glomerular Filtration Rate 100 >60 mL/min/1. 73 m*2 02/12/2024 5:37 PM CDT [facility] Comment:Risk of cardiovascul ar disease increases when GFR is abnormal; persistently reduced GFR values are a specific indication of CKD. This calculation uses CKD- EPI 2020 equation without adjustment for race; it has not been validated in women. Calcium 8.4 8.4 - 10.5 mg/dL 02/12/2024 5:37 PM CDT [facility] Glucose 128(H) 70 - 99 mg/dL 02/12/2024 5:37 PM CDT [facility] Blood BLOOD SPECIMEN / Unknown Venipuncture / Unknown 02/12/2024 4:51 PM CDT 02/12/2024 4:55 PM CDT Narrative [facility] - 02/12/2024 5:37 PM CDT Current ADA criteria for Glucose: ?Normal: 70-99 mg/dL ?Impaired Fasting Glucose: 100-125 mg/dL ?Diabetes Mellitus: at or above 126 mg/dL The diagnosis of diabetes must be confirmed on a subsequent day by measuring Fasting Plasma Glucose, 2-hr PG or random plasma glucose (if symptoms are present). Yaritza Barnes MD EC CHEMISTRY ORDERA BLES [facility] Organization Address City/State/ZIP Co de Phone Number [facility] [address] * (ABNORMAL) HEMOGRAM/DIFFERENTIAL (02/12/2024 4:51 PM CDT) WBC 10.2 3.2 - 11.0 10*9/L 02/12/2024 4:58 PM CDT [facility] RBC 3.48(L) 3.77 - 5.24 10*12/L 02/12/2024 4:58 PM CDT [facility] HGB 13.4 11.2 - 15.5 g/dL 02/12/2024 4:58 PM CDT [facility] HCT 39.1 34.3 - 46.0 % 02/12/2024 4:58 PM CDT [facility] MCV 112.4(H) 81.4 - 99.0 fL 02/12/2024 4:58 PM CDT [facility] MCH 38.5(H) 26.7 - 33.1 pg 02/12/2024 4:58 PM CDT [facility] MCHC 34.3 31.6 - 35.5 g/dL 02/12/2024 4:58 PM CDT [facility] RDW 15.3(H) 11.3 - 14.6 % 02/12/2024 4:58 PM CDT [facility] PLT 287 130 - 375 10*9/L 02/12/2024 4:58 PM CDT [facility] Neutrophils % 79.6 % 02/12/2024 4:58 PM CDT [facility] Lymphocytes % 12.7 % 02/12/2024 4:58 PM CDT [facility] Monocytes % 6.3 % 02/12/2024 4:58 PM CDT [facility] Eosinophils % 0.7 % 02/12/2024 4:58 PM CDT [facility] Basophils % 0.3 % 02/12/2024 4:58 PM CDT [facility] Immature Granulocytes % 0.4 % 02/12/2024 4:58 PM CDT [facility] Neutrophils Absolute 8.1(H) 1.5 - 7.6 10*9/L 02/12/2024 4:58 PM CDT [facility] Lymphocytes Absolute 1.3 0.8 - 3.3 10*9/L 02/12/2024 4:58 PM CDT [facility] Monocytes Absolute 0.6 0.2 - 0.9 10*9/L 02/12/2024 4:58 PM CDT [facility] CL[facility] LABORATORY Eosinophils Absolute 0.1 0.0 - 0.4 10*9/L 02/12/2024 4:58 PM CDT [facility] Basophils Absolute 0.0 0.0 - 0.1 10*9/L 02/12/2024 4:58 PM CDT [facility] Immature Granulocytes Absolute 0.04 0.00 - 0.06 10*9/L 02/12/2024 4:58 PM CDT [facility] Blood BLOOD SPECIMEN / Unknown Venipuncture / Unknown 02/12/2024 4:51 PM CDT 02/12/2024 4:55 PM CDT Yaritza Barnes MD [facility] HEMATOLOGY ORDER [facility] [address] [place] [id number] documented in this encounter Visit Diagnoses Diagnosis C. difficile diarrhea- Primary Intestinal infection due to clostridium difficile Hypomagnesemia Disorders of magnesium metabolism Hypokalemia Hypopotassemia documented in this encounter Administered Medications Inactive Administered Medications Medication Order MAR Action Action Date Dose Rate Site magnesium sulfate 2 g in 50 mL water for infusion (pre-mix) 4 g, Intravenous, at 50 mL/hr, ONCE, 1 dose, On Thu02/12/24 at 1800 New Bag 02/12/2024 6:30 PM CDT 4 g 50 mL/hr potassium chloride (Klor-Con) packet 40 mEq 40 mEq, Oral, ONCE, 1 dose, On Thu02/12/24 at 1800 Given 02/12/2024 6:39 PM CDT 40 mEq potassium chloride 10 mEq/100 mL infusion 10 mEq 10 mEq, Intravenous, at 100 mL/hr, EVERY HOUR, 4 doses, First dose on Thu02/12/24 at 1800, Last dose on Thu02/12/24 at 2100 New Bag 02/12/2024 9:48 PM CDT 10 mEq 100 mL/hr New Bag 02/12/2024 8:42 PM CDT 10 mEq 100 mL/hr New Bag 02/12/2024 7:38 PM CDT 10 mEq 100 mL/hr New Bag 02/12/2024 6:28 PM CDT 10 mEq 100 mL/hr vancomycin (Vancocin) capsule 125 mg 125 mg, Oral, 4 TIMES DAILY, 40 doses, First dose on Thu02/12/24 at 1800, Last dose on Thu02/22/24 at 1200, Indication? documented infection, Antibiotic Indication for Use: Clostridium difficile Given 02/12/2024 10:46 PM CDT 125 mg Given 02/12/2024 6:58 PM CDT 125 mg vancomycin (Vancocin) capsule 125 mg 125 mg, Oral, 2 TIMES DAILY, 14 doses, First dose on Thu02/22/24 at 2000, Last dose on Thu02/29/24 at 0800, Indication? documented infection, Antibiotic Indication for Use: Clostridium difficile vancomycin (Vancocin) capsule 125 mg 125 mg, Oral, ONCE DAILY, 7 doses, First dose on Thu03/01/24 at 0800, Last dose on Thu03/07/24 at 0800, Indication? documented infection, Antibiotic Indication for Use: Clostridium difficile vancomycin (Vancocin) capsule 125 mg 125 mg, Oral, EVERY 48 HOURS, 7 doses, First dose on Thu03/08/24 at 0800, Last dose on Thu03/20/24 at 0800, Indication? documented infection, Antibiotic Indication for Use: Clostridium difficile documented in this encounter Discontinued Medications Medication Sig Discontinue Reason Start Date End Da te albuterol HFA (Proair HFA, Ventolin HFA) 108 (90 Base) MCG/ACT inhalation aerosolIndications:C hronic cough Inhale 1-2 Puffs into the lungs every four hours as needed for Shortness of Breath. Shake before using. Course of treatment completed 10/16/2022 02/12/2024 calcipotriene (Dovonex) 0.005 % cream Apply topically. Course of treatment completed 04/12/2018 02/12/2024 ipratropium (Atrovent) 0.02 % nebulizer solutionIndications: Chronic cough INHALE CONTENTS OF ONE VIAL VIA NEBULIZATION FOUR TIMES DAILY NEEDED Course of treatment completed 04/12/2019 02/12/2024 PARoxetine (Paxil) 20 MG tablet Take 1 Tablet by mouth every morning. Course of treatment completed 08/29/2022 02/12/2024 documented as of this encounter Active and Recently Administered Medications Times are shown in CDT. Scheduled Medication Order 02/10/2024 02/11/2024 02/12/2024 magnesium sulfate 2 g in 50 mL water for infusion (pre-mix) (COMPLETED) 4 g, Intravenous, at 50 mL/hr, ONCE, 1 dose, On Thu02/12/24 at 1800 1830 (New Bag - Prov ider: Chana Cruz RN)2042 (Stopped - Provider: Sveta Toribio RN) potassium chloride (Klor-Con) packet 40 mEq (COMPLETED) 40 mEq, Oral, ONCE, 1 dose, On Thu02/12/24 at 1800 1839 (Given - Provid er: Chana Cruz RN) potassium chloride 10 mEq/100 mL infusion 10 mEq (COMPLETED) 10 mEq, Intravenous, at 100 mL/hr, EVERY HOUR, 4 doses, First dose on Thu02/12/24 at 1800, Last dose on Thu02/12/24 at 2100 1828 (New Bag - Prov ider: Chana Cruz RN)1936 (Stopped - Provider: Sveta Toribio RN)1937 (New Bag - Provider: Sveta Toribio RN)2041 (New Bag - Provider: Sveta Toribio RN)2042 (Stopped - Provider: Sveta Toribio RN)2146 (Stopped - Provider: Sveta Toribio RN)2147 (New Bag - Provider: Sveta Toribio RN)2253 (Stopped - Provider: Chana Cruz RN) vancomycin (Vancocin) capsule 125 mg(Linked Group 1) 125 mg, Oral, 4 TIMES DAILY, 40 doses, First dose on Thu02/12/24 at 1800, Last dose on Thu02/22/24 at 1200, Indication? documented infection, Antibiotic Indication for Use: Clostridium difficile 1857 (Given - Provid er: Chana Cruz RN)2245 (Given - Provider: Chana Cruz RN) vancomycin (Vancocin) capsule 125 mg(Linked Group 1) 125 mg, Oral, 2 TIMES DAILY, 14 doses, First dose on Thu02/22/24 at 2000, Last dose on Thu02/29/24 at 0800, Indication? documented infection, Antibiotic Indication for Use: Clostridium difficile vancomycin (Vancocin) capsule 125 mg(Linked Group 1) 125 mg, Oral, ONCE DAILY, 7 doses, First dose on Thu03/01/24 at 0800, Last dose on Thu03/07/24 at 0800, Indication? documented infection, Antibiotic Indication for Use: Clostridium difficile vancomycin (Vancocin) capsule 125 mg(Linked Group 1) 125 mg, Oral, EVERY 48 HOURS, 7 doses, First dose on Thu03/08/24 at 0800, Last dose on Thu03/20/24 at 0800, Indication? documented infection, Antibiotic Indication for Use: Clostridium difficile Linked Groups Order Group 1: vancomycin (Vancocin) capsule 125 mgJump to med 125 mg, Oral, 4 TIMES DAILY, 40 doses, First dose on Thu02/12/24 at 1800, Last dose on Thu02/22/24 at 1200, Indication? documented infection, Antibiotic Indication for Use: Clostridium difficile Followed by vancomycin (Vancocin) capsule 125 mgJump to med 125 mg, Oral, 2 TIMES DAILY, 14 doses, First dose on Thu02/22/24 at 2000, Last dose on Thu02/29/24 at 0800, Indication? documented infection, Antibiotic Indication for Use: Clostridium difficile Followed by vancomycin (Vancocin) capsule 125 mgJump to med 125 mg, Oral, ONCE DAILY, 7 doses, First dose on Thu03/01/24 at 0800, Last dose on Thu03/07/24 at 0800, Indication? documented infection, Antibiotic Indication for Use: Clostridium difficile Followed by vancomycin (Vancocin) capsule 125 mgJump to med 125 mg, Oral, EVERY 48 HOURS, 7 doses, First dose on Thu03/08/24 at 0800, Last dose on Thu03/20/24 at 0800, Indication? documented infection, Antibiotic Indication for Use: Clostridium difficile documented in this encounter Orders Medications Ordered That Chad ht Not Have Been Administered Count Last Ordered Date First Ordered Date vancomycin (Vancocin) capsule 125 mg 3 01/15 Nursing Count Last Ordered Date First Orde red Date NURSING IV START 1 02/12/2024 documented in this encounter Additional Health Concerns Infection Onset Date Last Indicated Resolved Time C difficile 01/13/2024 01/13/2024 03/02/2024 8:01 AM CDT History of C difficile 01/13/2024 01/13/2024 documented as of this encounter Care Teams Integration Engineer Relationship Specialty Start Date End Date Kyle Swann MD [address] [place] [address] PCP - General Family Medicine 02/12/24 Karla Madera, RN Leaf Stamper 12/13/22 documented as of this encounter
--- OUTSIDE RECORDS SUMMARY | 2024-03-10 13:25 | XMS_ITS | Encounter Summary ---
Author Organization [facility] [employer] [facility] Address [address] [place] [id number] Phone Care Team Providers Care Machine Tech Name Role Phone Karla Madera RN Unavailable [phone] Kyle Swann MD Primary Care Provider [phone] Reason for Visit * Reason Onset Date Comments Transitional Care 03/03/2024 Transitional C are Review Encounter Details Date Type Department Care Team (Latest Contact Info) Description 03/03/2024 Patient Outreach [facility] [address] [place] [address] Karla Madera RN Transitional Care (Transitional Care Review) Social History Tobacco Use Types Packs/Day Years Used Date Smoking Tobacco: Every Day Cigarettes 1.5 40 Smokeless Tobacco: Never Comments:1 pack Alcohol Use Standard Drinks/Week Comments Yes 0 (1 standard drink = 0.6 oz pur e alcohol) five drinks per week [facility] Utilities Answer Date Recorded In the past 12 months has [employer], gas, oil, or water [employer] threatened to shut off services in your [...] any time in the past 12 m ont, were you homeless or living in a prison (including now)? Patient declined 03/03/2024 IP Custom [...] as of this encounter Progress Notes * Karla Madera RN - 03/03/2024 7:44 AM CDT Patient was discharged from [facility] on 03/01/24. No post- discharge call was completed because patient transferred to [facility] for admission . documented in this encounter Plan of Treatment Upcoming Encounters Date Type Department Care Team (Late st Contact Info) Description 03/17/2024 2:20 PM CDT Appointment [facility] [address] [place], [place] [id number] Megan Herring PA-C [address] [place] [phone] documented as of this encounter Visit Diagnoses Not on filedocumented in this encounter Additional Health Concerns Infection Onset Date Last Indicated Resolved Time History of C difficile 01/13/2024 01/13/2024 documented as of this encounter Care Teams Machine Tech Relationship Specialty Start Date End Date Kyle Swann MD [address] [place] [address] PCP - General Family Medicine 02/12/24 Karla Madera, RN Enforcement Safety Officer 12/13/22 documented as of this encounter
--- OUTSIDE RECORDS SUMMARY | 2024-03-10 13:25 | XMS_ITS | Encounter Summary ---
Author Organization [facility] Address [address] [place] [id number] Phone Care Team Providers Care Business Services Intern Name Role Phone Karla Madera RN Unavailable [phone] Kyle Swann MD Primary Care Provider [phone] Reason for Referral * Ancillary Services (Routine) - Closed Specialty Diagnoses / Procedures Referred By Genia bautista Referred To Contact Radiology Diagnoses Hypoxia Procedures XR CHEST 2 VIEWS Kyle Swann MD [address] [facility] [place] [address] Referral ID Status Reason Start Date Expiration Date Visits Re quested Visits Authorized [id number] Closed 03/01/2024 05/31/2025 1 1 Reason for Visit * Reason Comments Hospital Follow Up Imm/Inj due Best Practice Care Contact due Encounter Details Date Type Department Care Team (Late st Contact Info) Description 03/01/2024 3:20 PM CDT Office Visit [facility] [address] [facility] [place] [address] Kyle Swann MD [address] [facility] [place] [phone] C. difficile colitis (Primary Dx); Nausea; Macrocytosis; Hypoxia Social History Tobacco Use Types Packs/Day Years Used Date Smoking Tobacco: Every Day Cigarettes 1.5 40 Smokeless Tobacco: Never Comments:1 pack Alcohol Use Standard Drinks/Week Comments Yes 0 (1 standard drink = 0.6 oz pur e alcohol) five drinks per week [facility] Utilities Answer Date Recorded In the [...] 03/01/2024 Hunger Vital Sign Answer Date Recorded Worried About Running Out of Food in the Last Ye ar Not on file 03/01/2024 Within the past 12 months, t he food you bought just didn't last and you didn't have money to get more. Patient declined PRAPARE - Transportation Answer Date Re corded In the past 12 months, has l ack of transportation kept you from medical appointments or from getting medications? Patient declined 03/01/2024 In the past 12 months, has l ack of transportation kept you from meetings, work, or from getting things needed for daily living? Patient declined 03/01/2024 Housing Stability Vital Sign Answer Osei e Recorded In the last 12 months, was t here a time when you were not able to pay the mortgage or rent on time? Patient declined 03/01/20 24 Number of Times Moved in the Last Year Not on fi le 03/01/2024 At any time in the past 12 m [facility], were you homeless or living in a intermediate (including now)? Patient declined 03/01/2024 EH IP Custom IPV Answer Date Recorded [...] Sign Reading Time Taken Comments Blood Pressure 100/62 03/01/2024 3:03 PM CDT Pulse 104 03/01/2024 3:03 PM CDT Temperature - - Respiratory Rate - - Oxygen Saturation 86% 03/01/2024 3:03 PM CDT Inhaled Oxygen Concentration - - Weight 59.1 kg (130 lb 4.7 oz) 03/01/2024 3:03 P M CDT Height - - Body Mass Index 22.36 01/30/2024 1:26 PM CDT documented in this encounter Functional Status Functional Status Response Date of Assess ment Patient's Vision Adequate to Safely Complete Daily Activities Yes 02/12/2024 Patient's Memory Adequate to Safely Complete Daily Activities Yes 02/12/2024 Cognitive Status Response Date of Assessm ent Patient's Judgment Adequate to Safely Complete Daily Activities Yes 02/12/2024 documented as of this encounter Ordered Prescriptions Prescription Sig Dispensed Refills Start Date End Da te ondansetron (Zofran ODT) 4 MG disintegrating tabletIndications:Nausea Take 1 Tablet by mouth every eight hours as needed for Nausea or Vomiting. 30 Tablet 11 03/01/2024 documented in this encounter Progress Notes * Kyle Swann MD - 03/01/2024 3:20 PM CDT Images from the original note were not included. [facility] Subjective HPI: Yas is a 64 year old here with the following concern(s): Here today for follow-up of C. difficile colitis. Patient has had 3 ED visits over the last 1-1/2 months for diarrhea caused by C. difficile colitis. Each time she has had multiple severe/critical electrolyte abnormalities including hypokalemia and hypomagnesemia requiring electrolyte replacement both IV in the ER and then orally afterwards. During her last visit 02/11 she was given a 5-day courseof magnesium and potassium and is now out of that. However she still has diarrhea. States that every morning after getting out of bed she has to stool about every 5 minutes. By the afternoon the diarrhea back soft but she has a stool about every 30 minutes. Sometimes the urge to stool wakes her from sleep but not all the time. Denies any bloody stools. She is lost weight, she weighed about 144 pounds last year down to 130 pounds at the first ED visit for C. difficile on 01/13/2024. In general she feels weak, her legs and thighs are weak and uncomfortable. She complains of tingling and pain in her hands, both of these have been present since she started the Phenadex in which shewas treated with her second ED visit. At the most recent ED visit 02/11 she was put on a pulse/taperregimen of vancomycin. She is currently on the end of that tapering regimen where she takes the vancomycin every other day for 14 days. Reviewed other labs that were found to be abnormal during her ED visits. She had elevated transaminases and alkaline phosphatase, AST twice the ALT, also significant macrocytosis without anemia. She does admit to drinking alcohol, she has at least 2 glasses of wine plus spirits most days, spirits usually are vodka. She is also hypoxic today. She is a smoker, she does have a bit of a cough. She gets more out of breath with activity than she used to but has no shortness of breath at rest. Denies any wheezing. 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 30 Tablet 11 vancomycin (Vancocin) 125 MG capsule Take 1 Capsule by mouth four times a day for 7 days, THEN 1 Capsule two times a day for 7 days, THEN 1 Capsule one time a day for 7 days, THEN 1 Capsule every 48 hours for 14 days. Indications: Colon Inflammation due to Clostridium Bacteria Overgrowth 56 Capsule0 metoprolol succinate (Toprol-XL) 100 MG 24 hour extended-release tablet Take 0.5 Tablets by mouth one time a day. Do not crush or chew. 45 Tablet 1 ASPIRIN 81 MG OR TABS 1 tablet once daily 100 3 No current facility-administered medications for this visit. The following portions of the patient's chart were reviewed and updated as appropriate for the visit: Tobacco Allergies Meds Problems Med Hx Surg Hx Fam Hx Objective BP: 100/62, , Pulse: 104, , SpO2: (!) 86 % Body mass index is 22.36 kg/m??. GENERAL: Alert and oriented, no acute distress RESP: Clear to auscultation bilaterally without crackles or wheezes, good air flow throughout I personally reviewed images obtained for encounter. My interpretation shows 2 views of the chest reveal retrocardiac density noted on the lateral view.. Assessment/Plan 1. Nausea Eating and drinking very little because she lacks appetite. Did refill the ondansetron. Her daughter has been giving her an electrolyte supplement but she does not seem to be using it that often. - ondansetron (Zofran ODT) 4 MG disintegrating tablet; Take 1 Tablet by mouth every eight hours as needed for Nausea or Vomiting. Dispense: 30 Tablet; Refill: 11 2. C. difficile colitis No significant improvement in symptoms despite her current course of vancomycin, she is currently on the tapering portion of the pulse/taper regimen. She had previous courses of vancomycin and Difficid without improvement in symptoms. She has experienced severe electrolyte abnormalities requiring IV replacement in the ED on 3 separate occasions in the past. We will recheck her electrolytes today.I am on-call tonight and if there is any critical results I will be the one receiving telephone call, if there are critical results she will be advised to be seen in the ED once again for treatment. This would then be her fourth ER visit in less than 2 months for the same problem, and at that pointI think hospital admission instead of outpatient treatment would be the best way to proceed. - MAGNESIUM; Future - MAGNESIUM 3. Macrocytosis Unclear if secondary to alcohol use versus malabsorption given her prolonged illness or possibly bone marrow related disorder. I would like to look for vitamin deficiencies first which could be replaced. - VITAMIN B12; Future - FOLATE, SERUM; Future - VITAMIN D TOTAL; Future - COMPREHENSIVE METABOLIC PANEL; Future - VITAMIN B12 - FOLATE, SERUM - VITAMIN D TOTAL - COMPREHENSIVE METABOLIC PANEL 4. Hypoxia Abnormal chest x-ray, await radiology read, she is currently taking vancomycin which covers most causes a both community and hospital-acquired pneumonia. Consider an atypical pneumonia versus neoplastic process, may require CT for further evaluation. - XR CHEST 2 VIEWS; Future There are no Patient Instructions on file for this visit. Patient Active Problem List Tobacco Use Smoking Status Every Day Current packs/day: 1.50 Average packs/day: 1.5 packs/day for 40.0 years (60.0 ttl pk-yrs) Types: Cigarettes Smokeless Tobacco Never Tobacco Comments 1 pack Tobacco Cessation Plan: not interested in discussing tobacco cessation No follow-ups on file. 54 minutes spent with the patient in discussing history of present illness, physical exam, discussing and ordering evaluation and treatment, documentation of the encounter, review and filling out of forms, and/or review of records on the day of the visit. documented in this encounter Miscellaneous Notes * Clinical Note - Nancy Juarez CMA - 03/01/2024 3:20 PM CDT This chart was prepped for visit by Nancy Juarez CMA on 02/26/2024. documented in this encounter Plan of Treatment Upcoming Encounters Date Type Department Care Team (Late st Contact Info) Description 03/17/2024 2:[address] [facility] [address] [place] [address] Megan Herring PA-C [address] [place] [address] documented as of this encounter Procedures Procedure Name Priority Date/Time Associated Diagnosis Comments VITAMIN D TOTAL Routine 03/01/2024 4:07 PM CDT Macrocytosis COMPREHENSIVE METABOLIC PANEL Routine 03/01/2024 4:07 PM CDT Macrocytosis MAGNESIUM Routine 03/01/2024 4:07 PM CDT C. difficile colitis FOLATE Routine 03/01/2024 4:07 PM CDT Macrocytosis VITAMIN B12 Routine 03/01/2024 4:07 PM CDT Macrocytosis documented in this encounter Results * XR CHEST 2 VIEWS (03/01/2024 4:08 [...] EC DIAGNOSTIC IMAGIN G ORDERABLES * (ABNORMAL) COMPREHENSIVE METABOLIC PANEL (03/01/2024 4:07 PM CDT) Sodium 139 134 - 143 mEq/L 03/01/2024 7:45 PM [facility] Potassium 2.3(LL) 3.4 - 5.1 mEq/L 03/01/2024 7:45 PM [facility] Chloride 88(L) 99 - 110 mEq/L 03/01/2024 7:45 PM [facility] Carbon Dioxide 36(H) 19 - 29 mEq/L 03/01/2024 7:45 PM [facility] Anion Gap 15.0 3.0 - 15.0 mEq/L 03/01/2024 7:45 PM [facility] Blood Urea Nitrogen 9 5 - 24 mg/dL 03/01/2024 7:45 PM [facility] Creatinine 0.58 0.40 - 1.00 mg/dL 03/01/2024 7:45 PM [facility] Glomerular Filtration Rate 100 >60 mL/min/1. 73 m*2 03/01/2024 7:45 PM [facility] Comment:Risk of cardiovascul ar disease increases when GFR is abnormal; persistently reduced GFR values are a specific indication of CKD. This calculation uses CKD- EPI 2020 equation without adjustment for race; it has not been validated in women. Calcium 8.6 8.4 - 10.5 mg/dL 03/01/2024 7:45 PM [facility] Glucose 120(H) 70 - 99 mg/dL 03/01/2024 7:45 PM [facility] Protein, Total 6.8 6.0 - 8.0 g/dL 03/01/2024 7:45 PM [facility] Albumin 2.8(L) 3.5 - 5.0 g/dL 03/01/2024 7:45 PM [facility] Alkaline Phosphatase 399(H) 40 - 150 IU/L 03/01/2024 7:45 PM [facility] Aspartate Aminotransferase 88(H) 10 - 40 IU/L 03/01/2024 7:45 PM [facility] Alanine Aminotransferase 37(H) 6 - 31 IU/L 03/01/2024 7:45 PM [facility] Bilirubin, Total 1.2 0.2 - 1.2 mg/dL 03/01/2024 7:45 PM CDT [facility] Blood BLOOD SPECIMEN / Unknown Venipuncture / Unknown 03/01/2024 4:07 PM CDT 03/01/2024 4:12 PM CDT Narrative [facility] - 03/01/2024 7:45 PM CDT Current ADA criteria for Glucose: ?Normal: 70-99 mg/dL ?Impaired Fasting Glucose: 100-125 mg/dL ?Diabetes Mellitus: at or above 126 mg/dL The diagnosis of diabetes must be confirmed on a subsequent day by measuring Fasting Plasma Glucose, 2-hr PG or random plasma glucose (if symptoms are present). Kyle Swann MD EC CHEMISTRY ORDERAB LES Performing Organization Address [facility] de Phone Number [facility] [address] [place] [address] * (ABNORMAL) VITAMIN D TOTAL (03/01/2024 4:07 PM CDT) [facility] Vitamin D Total 5(L) 27 - 80 ng/mL 03/01/2024 8:54 PM CDT [facility] Blood BLOOD SPECIMEN / Unknown Venipuncture / Unknown 03/01/2024 4:07 PM CDT 03/01/2024 4:12 PM CDT Narrative [facility] - 03/01/2024 8:54 PM CDT ?[facility] Reference Range Deficiency ?<10 ?? ng/mL Insufficiency ?? 10-26 ng/mL Sufficiency ? 27-80 ng/mL Toxicity ?>80 ?? ng/mL Kyle Swann MD EC LAB SEND OUT ORDE RABLES ABN Performing Organization Address [facility] Co de Phone Number [facility] [address] [place] [address] * (ABNORMAL) FOLATE, SERUM (03/01/2024 4:07 PM CDT) Pathologist [facility] Folate <2.2(L) 7.0 - 31.4 ng/mL 03/01/2024 8:13 PM CDT [facility] Blood BLOOD SPECIMEN / Unknown Venipuncture / Unknown 03/01/2024 4:07 PM CDT 03/01/2024 4:12 PM CDT Narrative [facility] - 03/01/2024 8:13 PM CDT ?? Folate Reference Range Normal: ?7.0 - 31.4 ng/mL Indeterminate: ?? 3.5 - 6.9 ng/mL Deficient: ?<3.5 ng/mL Kyle Swann MD EC CHEMISTRY ORDERAB LES Performing Organization Address [facility] Co de Phone Number [facility] [address] [place] [address] * VITAMIN B12 (03/01/2024 4:07 PM CDT) [facility] Vitamin B12 785 213 - 816 pg/mL 03/01/2024 8:05 PM CDT [facility] Blood BLOOD SPECIMEN / Unknown Venipuncture / Unknown 03/01/2024 4:07 PM CDT 03/01/2024 4:12 PM CDT Kyle Swann MD EC CHEMISTRY ORDERAB LES Performing Organization Address [facility] Co de Phone Number [facility] [address] [place] [address] * (ABNORMAL) MAGNESIUM (03/01/2024 4:07 PM CDT) [facility] Magnesium 1.6(L) 1.8 - 2.7 mg/dL 03/01/2024 7:45 PM CDT [facility] Blood BLOOD SPECIMEN / Unknown Venipuncture / Unknown 03/01/2024 4:07 PM CDT 03/01/2024 4:12 PM CDT Kyle Swann MD EC CHEMISTRY ORDERAB LES [facility] [address] [place] [address], [facility] documented in this encounter Visit Diagnoses Diagnosis C. difficile colitis- Primary Intestinal infection due to clostridium difficile Nausea Nausea alone Macrocytosis Other specified diseases of blood and blood-forming organs Hypoxia Hypoxemia Hypoxia Hypoxemia documented in this encounter Discontinued Medications Medication Sig Discontinue Reason Start Date End Da te hydroCHLOROthiazide (Microzide) 12.5 MG capsule Take 1 Capsule by mouth one time a day. Course of treatment completed 08/29/2022 03/01/2024 ondansetron (Zofran ODT) 4 MG disintegrating tabletIndications:Nausea Take 1 Tablet by mouth every eight hours as needed for Nausea or Vomiting. Reorder 01/12/2024 03/01/2024 magnesium oxide (Mag-Ox) 400 MG tablet Take 2 Tablets by mouth one time a day. Course of treatment completed 02/12/2024 03/01/2024 documented as of this encounter Additional Health Concerns Infection Onset Date Last Indicated Resolved Time C difficile 01/13/2024 01/13/2024 03/02/2024 8:01 AM CDT History of C difficile 01/13/2024 01/13/2024 documented as of this encounter Care Teams Business Services Intern Relationship Specialty Start Date End Date Kyle Swann MD [address] [address] PCP - General Family Medicine 02/12/24 Karla Madera RN Mechanic General Operational Test 12/13/22 documented as of this encounter
--- OUTSIDE RECORDS SUMMARY | 2024-03-10 13:25 | XMS_ITS | Encounter Summary ---
Author Organization [facility] Address [address] [address] Phone Care Team Providers Care Customs Appraiser Name Role Phone Karla Madera RN Unavailable [phone] Kyle Swann MD Primary Care Provider [phone] Encounter Details Date Type Department Care Team (Late st Contact Info) Description 02/16/2024 Telephone [facility] INFECTIOUS [facility] [address] [place] [address] Deepika Cartagena Social History Tobacco [...] Yes 02/12/2024 documented as of this encounter Miscellaneous Notes * Telephone Encounter - Deepika Cartagena - 02/16/2024 1:20 PM CDT Author attempted to contact patient to . Please communicate or obtain the following information to/from the patient:: appt. Please schedule an appointment for patient, using visit type: Consult with GW next available documented in this encounter Plan of Treatment Upcoming Encounters Date Type Department Care Team (Late Contact Info) Description 03/17/2024 2:20 PM CDT Appointment [facility] [address] [place] [address] Megan Herring PA-C [address] [place] [address] documented as of this encounter Visit Diagnoses Not on filedocumented in this encounter Additional Health Concerns Infection Onset Date Last Indicated Resolved Time C difficile 01/13/2024 01/13/2024 03/02/2024 8:01 AM CDT History of C difficile 01/13/2024 01/13/2024 documented as of this encounter Care Teams Customs Appraiser Relationship Specialty Start Date End Date Kyle Swann MD [address] [address] PCP - General Family Medicine 02/12/24 Karla Madera RN Hydrant Setter 12/13/22 documented as of this encounter
--- OUTSIDE RECORDS SUMMARY | 2024-03-10 13:25 | XMS_ITS | Encounter Summary ---
Author Organization [facility] Address [address] [address] Phone Care Team Providers Care Pocketed Spring Machine Operator Name Role Phone Karla Madera RN Unavailable [phone] Kyle Swann MD Primary Care Provider [phone] Reason for Visit * Reason Comments Abnormal Lab Results Encounter Details Date Type Department Care Team (Late st Contact Info) Description 03/01/2024 10:42 PM CDT - 03/02/2024 3:24 AM CDT Emergency [facility] EMERGENCY DEPARTMENT [address] [place] [id number] Adeel Aguiar MD [address] [place] [phone] Hypokalemia (Primary Dx); C. difficile colitis Discharge Disposition: Admit to Acute Care Hospital Social History Tobacco Use Types Packs/Day Years Used Date Smoking Tobacco: Every Day Cigarettes 1.5 40 Smokeless Tobacco: Never Comments:1 pack Alcohol Use Standard Drinks/Week Comments Yes 0 (1 standard drink = 0.6 oz pur e alcohol) five drinks per week [facility] Utilities Answer Date Recorded In the past [...] any time in the past 12 m [facility], were you homeless or living in a [place] health care facility (including now)? Patient declined 03/03/2024 EH IP [...] Sign Reading Time Taken Comments Blood Pressure 108/67 03/02/2024 1:00 AM CDT Pulse 101 03/02/2024 1:00 AM CDT Temperature 36.9 ??C (98.4 ??F) 03/01/2024 8:54 PM CD T Respiratory Rate 19 03/02/2024 1:00 AM CDT Oxygen Saturation 98% 03/02/2024 1:00 AM CDT Inhaled Oxygen Concentration - - [...] as of this encounter Discharge Instructions * Attachments The following attachments cannot be sent through Care Everywhere. * Hypokalemia (Citizen Of [place]) documented in this encounter Medications at Time [...] 3 09/13/2007 documented as of this encounter Discharge Disposition Disposition Code Departure Means Destination Admit to Acute Care Hospital Other Hospital documented in this encounter ED Notes * Queta Buckley RN - 03/02/2024 2:57 AM CDT Dispatch called to arrange for transport. Awaiting to hear back on availability/ETA. * Adeel Aguiar MD - 03/01/2024 10:43 PM CDT Images from the original note were not included. Patient: Yas Rivera Means of Arrival: Car Chief Complaint: Abnormal Lab Results History of Present Illness: HPI Pt is a 64 yo female with a hx of tobacco use, prediabetes, htn, hld, persistent C diff who is presenting with hypokalemia. Was in the PCP office today and labs were drawn. K was notable for 2.3 so she was directed to the ER. She was also hypoxic to 86% in clinic today where a cxr was performed. Denies chest pain or SOB, denies cardiac history. No cough or purulent sputum. This has all been going on since or october, per patient. Was also given a course of oral K and mag replacement on 02/11. On 02/11 she was put on a pulse/taper regimen of vancomycin. Currently takingvancomycin every other day and is near the end of the taper. This is her third round of oral vanc. Was also on Fidaxomicin as of 01/29 per chart review. None of these meds have really helped, she still has watery stools every 5 min or so when waking up. Does endorse over 10 episodes daily. No abdominal pain currently, but when this all started she did have pain. She mostly notes cramps and pain inher arms and lower extremities. Review of Systems All other systems reviewed and are negative. Allergies Allergen Reactions Benzoyl Peroxide RASH allergic contact dermatitis allergic contact dermatitis allergic contact dermatitis Benzoyl Peroxide allergic contact dermatitis Environmental Some metals Latex Pruritis Prior to Admission Medication List ASPIRIN 81 MG OR TABS 1 tablet once daily metoprolol succinate (Toprol-XL) 100 MG 24 hour extended-release tablet Take 0.5 Tablets by mouth one time a day. Do not crush or chew. ondansetron (Zofran ODT) 4 MG disintegrating tablet Take 1 Tablet by mouth every eight hours as needed for Nausea or Vomiting. vancomycin (Vancocin) 125 MG capsule Take 1 Capsule by mouth four times a day for 7 days, THEN 1 Capsule two times a day for 7 days, THEN 1 Capsule one time a day for 7 days, THEN 1 Capsule every 48 hours for 14 days. Indications: ColonInflammation due to Clostridium Bacteria Overgrowth Past Medical History: Past Medical History: Diagnosis [...] - unknown maternal/paternal Neuro Disease Maternal Grandfather [place] - in 70's Cardiovascular Disease Paternal Grandmother [...] Exam: Initial Vitals Most Recent Vitals Temp: 36.9 ??C (98.4 ??F) (03/01/242053) Temp: 36.9 ??C (98.4 ??F) (03/01/242053) Pulse: 99 (03/01/242053) Pulse: 99 (03/01/242053) Resp: 16 (03/01/242053) Resp: 16 (03/01/242053) BP: 118/74 (03/01/242053) BP: 118/74 (03/01/242053) SpO2: 90 % (03/01/242053) SpO2: 90 % (03/01/242053) Physical Exam: Physical Exam Vitals and nursing note reviewed. Constitutional: General: She is not in acute distress. Appearance: She is well-developed. HENT: Head: Normocephalic and atraumatic. Right Ear: Hearing, tympanic membrane and ear canal normal. No drainage. Left Ear: Hearing, tympanic membrane and ear canal normal. No drainage. Nose: Nose normal. Mouth/Throat: Pharynx: Uvula midline. Eyes: General: Lids are normal. Conjunctiva/sclera: Conjunctivae normal. Pupils: Pupils are equal, round, and reactive to light. Neck: Thyroid: No thyromegaly. Vascular: No JVD. Trachea: Trachea normal. Cardiovascular: Rate and Rhythm: Regular rhythm. Heart sounds: Normal heart sounds. Pulmonary: Effort: Pulmonary effort is normal. Breath sounds: Normal breath sounds. Abdominal: General: Bowel sounds are normal. Palpations: Abdomen is soft. Tenderness: There is no abdominal tenderness. Musculoskeletal: General: No tenderness. Cervical back: Neck supple. Lymphadenopathy: Cervical: No cervical adenopathy. Skin: General: Skin is warm and dry. Nails: There is no clubbing. Neurological: Mental Status: She is alert and oriented to person, place, and time. Sensory: No sensory deficit. Psychiatric: Speech: Speech normal. Behavior: Behavior normal. Lab Results: No results found for this visit on 03/01/24. Imaging Results: Imaging Results None Emergency Department Course: Reviewed outpatient labs, notable for K of 2.3. EKG notable for qtc 414. No devonte that would require farm labor contractor. Has some slight st depressions in leads v5 and v6 but has no cardiopulmonary symptoms currently. K 2.5 which was repleted orally and IV while in the ED. Mag slightly low at 1.4. Mild leukocytosis but is afebrile. Bp stable, abdominal exam is non tender and benign. Elevations in alk phos seems sidney relatively stable. CXR shows no consolidation. While in the ED, o2 sats around 90% and she has no purulent sputum or coughing that would be suspicious for a bacterial PNA. Overall does have decreased po intake in the setting of these episodes. Given repeat ED visits and persistently low K and persistent symptoms despite multiple meds, I think admission is the best option at this point. Medications - No data to display Procedures: Procedures Medical Decision Making Assessment: None Diarrhea Hypokalemia Hypomagnesia Plan: Discharge Prescriptions None Disposition: ED Disposition None Discharge Instructions None ExitCare Instructions None Adeel Aguiar MD 03/04/241954 * Deepika Mcclure RN - 03/01/2024 8:50 PM CDT Pt sent in for abnormal lab results- potassium low. Has been struggling with C- diff for months. documented in this encounter Miscellaneous Notes * Admission - Parmjit Hurley MD - 03/02/2024 2:02 AM CDT Patient Flow Center: Hand-Off Note Referring Provider: Adeel Aguiar* Referring Location: [facility] Emergency Department Date of call: 03/02/2024 Time of call: 2:02 AM Anticipated Arrival Time: pending Bed Assignment: pending, at [facility] HPI: 64F hx recurrent Cdiff, ETOH presents with ongoing watery diarrhea, sent to ED for hypokalemia. Specialty Consultation: N/A Interventions at Outside Hospital: 1L NS, K repletion (40 PO, 20 IV), 1g Mg Plan/Orders: #. Hypokalemia #. Hypomagnesemia -Initial K 2.3, Mg 1.4 -Acute on chronic lyte depletion -Poor POI + GI losses -Admit to available med/surg bed in [facility] -Telemetry -Aggressive lyte repletion -Goal K>4, Mg>2 -Use IV Mg to avoid worsening diarrhea with PO Mg #. Chronic Diarrhea #. Recurrent Cdiff, possible new episode -Reports months of watery diarrhea, multiple prior episodes of Cdiff, lyte depletion -Most recently tapered down to vanc 125 PO every other day -Query insufficient dosing/duration vs alternative underlying cause(s) -Per chart review, was referred to Infectious Disease but ID clinic was unable to reach her. -Send Cdiff to confirm dx -Restart PO vanco -Add rifaximin -Consult GI, ID in AM #. History of Alcohol Use Disorder -Added on etoh level, negative -Concerning given ongoing diarrhea, lyte depletion, macrocytic anemia, elevated LFTs -Gather more history re: active ETOH use -MVI, thiamine, folate -Check CIWA score qshift, notify if scoring to start full protocol #. Macrocytic Anemia -Hgb 9.5 from 13.4 -MCV 113 -Folate undetectable. B12 wnl. -Hx ETOH use disorder -Hx of elevated ferritin, heterozygous for genes associated w/ hemochromatosis -Folate 1mg daily - MVI, thiamine -Add on ferritin #. Elevated LFTs -Chronic, unclear etiology, possible hemochromatosis vs ETOH -Negative hepatitis panel 2017 -GI consult #. Tobacco: PRN nicotine replacement Might this patient be appropriate for the [facility] Observation unit? No One of my partners will be admitting the patient. If my name is still listed as the admitter, Please call STAT Doc ([phone]) when the patient arrives. Parmjit Hurley MD documented in this encounter Plan of Treatment Upcoming Encounters Date Type Department Care Team (Late st Contact Info) Description 03/17/2024 2:20 PM CDT Appointment [facility] GASTROENTEROLOGY [address] [place] [address] [facility] [address] [place] [address] documented as of this encounter Procedures Procedure Name Priority Date/Time Associated Diagnosis Comments TROPONIN I STAT 03/01/2024 11:58 PM CDT LACTIC ACID, VENOUS STAT 03/01/2024 1 1:58 PM CDT COMPREHENSIVE METABOLIC PANEL STAT 03/01/2024 11:17 PM CDT HEMOGRAM/DIFF STAT 03/01/2024 11:17 PM CDT MAGNESIUM STAT 03/01/2024 11:17 PM CDT ALCOHOL Add on 03/01/2024 11:17 PM CDT FERRITIN Add on 03/01/2024 11:17 PM CDT EKG 12-LEAD STAT 03/01/2024 11:02 PM CDT documented in this encounter Results * LACTIC ACID, VENOUS (03/01/2024 11:58 PM CDT) [facility] Lactic Acid, Venous 1.9 0.5 - 2.0 mmol/L 03/02/2024 12:[address] [facility] Blood BLOOD SPECIMEN / Unknown Venipuncture / Unknown 03/01/2024 11:58 PM CDT 03/02/2024 12:13 AM CDT Adeel Haque MD EC CHEMISTR Y ORDERABLES Performing Organization Address City/[facility] Co de Phone Number [facility] [address] [place] [address] * TROPONIN I (03/01/2024 11:58 PM CDT) [facility] High Sensitivity Troponin I <2.7 <=14.0 ng/L 03/02/2024 12:[address] [facility] Blood BLOOD SPECIMEN / Unknown Venipuncture / Unknown 03/01/2024 11:58 PM CDT 03/02/2024 12:13 AM CDT Adeel Haque MD EC CHEMISTR Y ORDERABLES Performing Organization Address [facility] Co de Phone Number [facility] [address] [place] [address] * (ABNORMAL) FERRITIN (03/01/2024 11:17 PM CDT) [facility] Ferritin 2,902(H) 10 - 200 ng/mL 03/02/2024 4:[address] [facility] Blood BLOOD SPECIMEN / Unknown Venipuncture / Unknown 03/01/2024 11:17 PM CDT 03/01/2024 11:19 PM CDT Parmjit Hurley MD EC CHEMISTRY ORDER NICKY ABN Performing Organization Address City/[facility]/ZIP Co de Phone Number [facility] [address] [place] [address] * ALCOHOL (03/01/2024 11:17 PM CDT) Alcohol <10.0 <=10.0 mg/dL 03/02/2024 3:[address] [facility] Blood BLOOD SPECIMEN / Unknown Venipuncture / Unknown 03/01/2024 11:17 PM CDT 03/01/2024 11:19 PM CDT Parmjit Hurley MD EC CHEMISTRY ORDER NICKY Performing Organization Address [facility] Co de Phone Number [facility] [address] [place] [address] * (ABNORMAL) MAGNESIUM (03/01/2024 11:17 PM CDT) [facility] Magnesium 1.4(L) 1.8 - 2.7 mg/dL 03/01/2024 11:[address] [facility] Blood BLOOD SPECIMEN / Unknown Venipuncture / Unknown 03/01/2024 11:17 PM CDT 03/01/2024 11:19 PM CDT Adeel Haque MD EC CHEMISTR Y ORDERABLES Performing Organization Address City/[facility]/ZIP Co de Phone Number [facility] [address] [place] [address] * (ABNORMAL) COMPREHENSIVE METABOLIC PANEL (03/01/2024 11:17 PM CDT) Pathologist [facility] Sodium 140 134 - 143 mEq/L 03/01/2024 11:[address] [facility] Potassium 2.5(LL) 3.4 - 5.1 mEq/L 03/01/2024 11:[address] [facility] Chloride 90(L) 99 - 110 mEq/L 03/01/2024 11:[address] [facility] Carbon Dioxide 33(H) 19 - 29 mEq/L 03/01/2024 11:[address] [facility] Anion Gap 17.0(H) 3.0 - 15.0 mEq/L 03/01/2024 11:[address] [facility] Blood Urea Nitrogen 9 5 - 24 mg/dL 03/01/2024 11:48 PM [facility] Creatinine 0.54 0.40 - 1.00 mg/dL 03/01/2024 11:[address] [facility] Glomerular Filtration Rate 101 >60 mL/min/1. 73 m*2 03/01/2024 11:[address] [facility] Comment:Risk of cardiovascul ar disease increases when GFR is abnormal; persistently reduced GFR values are a specific indication of CKD. This calculation uses CKD- EPI 2020 equation without adjustment for race; it has not been validated in women. Calcium 8.3(L) 8.4 - 10.5 mg/dL 03/01/2024 11:48 PM [facility] Glucose 111(H) 70 - 99 mg/dL 03/01/2024 11:[address] [facility] Protein, Total 6.0 6.0 - 8.0 g/dL 03/01/2024 11:48 PM [facility] Albumin 2.5(L) 3.5 - 5.0 g/dL 03/01/2024 11:[address] [facility] Alkaline Phosphatase 353(H) 40 - 150 IU/L 03/01/2024 11:[address] [facility] Aspartate Aminotransferase 81(H) 10 - 40 IU/L 03/01/2024 11:[address] [facility] Alanine Aminotransferase 33(H) 6 - 31 IU/L 03/01/2024 11:48 PM [facility] Bilirubin, Total 1.1 0.2 - 1.2 mg/dL 03/01/2024 11:48 PM [facility] Blood BLOOD SPECIMEN / Unknown Venipuncture / Unknown 03/01/2024 11:17 PM CDT 03/01/2024 11:19 PM CDT [facility] - 03/01/2024 11:48 PM CDT Current ADA criteria for Glucose: ?Normal: 70-99 mg/dL ?Impaired Fasting Glucose: 100-125 mg/dL ?Diabetes Mellitus: at or above 126 mg/dL The diagnosis of diabetes must be confirmed on a subsequent day by measuring Fasting Plasma Glucose, 2-hr PG or random plasma glucose (if symptoms are present). Adeel Haque MD EC CHEMISTR Y ORDERABLES [facility] [address] [place] [id number] * (ABNORMAL) HEMOGRAM/DIFFERENTIAL (03/01/2024 11:17 PM CDT) WBC 11.6(H) 3.2 - 11.0 10*9/L 03/01/2024 11:[address] [facility] RBC 2.40(L) 3.77 - 5.24 10*12/L 03/01/2024 11:[address] [facility] HGB 9.5(L) 11.2 - 15.5 g/dL 03/01/2024 11:[address] [facility] HCT 27.2(L) 34.3 - 46.0 % 03/01/2024 11:[address] [facility] MCV 113.3(H) 81.4 - 99.0 fL 03/01/2024 11:[address] [facility] MCH 39.6(H) 26.7 - 33.1 pg 03/01/2024 11:[address] [facility] MCHC 34.9 31.6 - 35.5 g/dL 03/01/2024 11:[address] [facility] RDW 16.6(H) 11.3 - 14.6 % 03/01/2024 11:[address] [facility] PLT 320 130 - 375 10*9/L 03/01/2024 11:[address] [facility] Neutrophils % 80.9 % 03/01/2024 11:[address] [facility] Lymphocytes % 12.9 % 03/01/2024 11:[address] [facility] Monocytes % 5.3 % 03/01/2024 11:[address] [facility] Eosinophils % 0.2 % 03/01/2024 11:[address] [facility] Basophils % 0.1 % 03/01/2024 11:[address] [facility] Immature Granulocytes % 0.6 % 03/01/2024 11:[address] [facility] Neutrophils Absolute 9.4(H) 1.5 - 7.6 10*9/L 03/01/2024 11:[address] [facility] Lymphocytes Absolute 1.5 0.8 - 3.3 10*9/L 03/01/2024 11:[address] [facility] Monocytes Absolute 0.6 0.2 - 0.9 10*9/L 03/01/2024 11:[address] [facility] Eosinophils Absolute 0.0 0.0 - 0.4 10*9/L 03/01/2024 11:[address] [facility] Basophils Absolute 0.0 0.0 - 0.1 10*9/L 03/01/2024 11:[address] [facility] Immature Granulocytes Absolute 0.07(H) 0.00 - 0.06 10*9/L 03/01/2024 11:[address] [facility] Blood BLOOD SPECIMEN / Unknown Venipuncture / Unknown 03/01/2024 11:17 PM CDT 03/01/2024 11:19 PM CDT Adeel Haque MD EC HEMATOLO GY ORDERABLES [facility] [address] [place] [address] * EKG 12-LEAD (03/01/2024 11:02 PM CDT) Ventricular Rate 96 BPM MUSE Atrial Rate 96 BPM MUSE P-R Interval 174 ms MUSE QRS Duration 98 ms MUSE QT 328 ms MUSE QTc 414 ms MUSE P [place] 84 degrees MUSE R [place] 76 degrees MUSE T [place] 134 degrees MUSE 03/01/2024 11:0 2 PM [...] has shortened Adeel Haque MD IP ECG MIAH NEVAREZ MUSE documented in this encounter Visit Diagnoses Diagnosis Hypokalemia- Primary Hypopotassemia C. difficile colitis Intestinal infection due to clostridium difficile documented in this encounter Administered Medications Inactive Administered Medications Medication Order MAR Action Action Date Dose Rate Site magnesium sulfate 1 g in 100 mL D5W for infusion (premix) 1 g, Intravenous, at 100 mL/hr, ONCE, 1 dose, On Thu03/02/24 at 0000 New Bag 03/02/2024 12:10 AM CDT 1 g 100 mL/hr metroNIDAZOLE (Flagyl) infusion 500 mg 500 mg, Intravenous, at 200 mL/hr, ONCE, 1 dose, On Thu03/02/24 at 0230, Indication? documented infection, Antibiotic Indication for Use: C. difficile New Bag 03/02/2024 2:17 AM CDT 500 mg 200 mL/hr potassium chloride (Klor-Con) packet 40 mEq 40 mEq, Oral, ONCE, 1 dose, On Thu03/02/24 at 0030 Given 03/02/2024 12:40 AM CDT 40 mEq potassium chloride 10 mEq/100 mL infusion 10 mEq 10 mEq, Intravenous, at 100 mL/hr, ONCE, 1 dose, On Thu03/01/24 at 2300 New Bag 03/01/2024 11:08 PM CDT 10 mEq 100 mL/hr potassium chloride 10 mEq/100 mL infusion 10 mEq 10 mEq, Intravenous, at 100 mL/hr, EVERY 2 HOURS, 2 doses, First dose on Thu03/02/24 at 0030, Last dose on Thu03/02/24 at 0230 New Bag 03/02/2024 2:59 AM CDT 10 mEq 100 mL/h r New Bag 03/02/2024 12:41 AM CDT 10 mEq 100 mL/hr sodium chloride 0.9% (NS) infusion 1,000 mL 1,000 mL, Intravenous, at 1,000 mL/hr, ONCE, 1 dose, On Thu03/01/24 at 2330 New Bag 03/02/2024 12:10 AM CDT 1,000 mL 1000 mL/hr vancomycin (Vancocin) capsule 125 mg 125 mg, Oral, ONCE, 1 dose, On Thu03/02/24 at 0230, Indication? documented infection, Antibiotic Indication for Use: C. difficile Given 03/02/2024 3:03 AM CDT 125 mg documented in this encounter Active and Recently Administered Medications Times are shown in CDT. Scheduled Medication Order 02/29/2024 03/01/2024 03/02/2024 magnesium sulfate 1 g in 100 mL D5W for infusion (premix) (COMPLETED) 1 g, Intravenous, at 100 mL/hr, ONCE, 1 dose, On Thu03/02/24 at 0000 0010 (New Bag - Provider: Hannah Barnes RN)0115 (Stopped - Provider: Hannah Barnes RN) metroNIDAZOLE (Flagyl) infusion 500 mg (COMPLETED) 500 mg, Intravenous, at 200 mL/hr, ONCE, 1 dose, On Thu03/02/24 at 0230, Indication? documented infection, Antibiotic Indication for Use: C. difficile 0217 (New Bag - Provider: Hannah Barnes RN)0250 (Stopped - Provider: Hannah Barnes RN) potassium chloride (Klor-Con) packet 40 mEq (COMPLETED) 40 mEq, Oral, ONCE, 1 dose, On Thu03/02/24 at 0030 0040 (Given - Provid er: Hannah Barnes RN) potassium chloride 10 mEq/100 mL infusion 10 mEq (COMPLETED) 10 mEq, Intravenous, at 100 mL/hr, ONCE, 1 dose, On Thu03/01/24 at 2300 2308 (New Bag - Provider: [place] RN) 0026 (Stopped - Provider: Hannah Barnes RN) potassium chloride 10 mEq/100 mL infusion 10 mEq (COMPLETED) 10 mEq, Intravenous, at 100 mL/hr, EVERY 2 HOURS, 2 doses, First dose on Thu03/02/24 at 0030, Last dose on Thu03/02/24 at 0230 0041 (New Bag - Provider: Hannah Barnes RN)0208 (Stopped - Provider: Hannah Barnes RN)0259 (New Bag - Provider: Hannah Barnes RN)0324 (Continued on external transfer - Provider: Hannah Barnes RN)0359 (Due: Stopped - Provider: Hannah Barnes RN) sodium chloride 0.9% (NS) infusion 1,000 mL (COMPLETED) 1,000 mL, Intravenous, at 1,000 mL/hr, ONCE, 1 dose, On Thu03/01/24 at 2330 0010 (New Bag - Provider: Hannah Barnes RN)0309 (Stopped - Provider: Hannah Barnes RN) vancomycin (Vancocin) capsule 125 mg (COMPLETED) 125 mg, Oral, ONCE, 1 dose, On Thu03/02/24 at 0230, Indication? documented infection, Antibiotic Indication for Use: C. difficile 0303 (Given - Provid er: Hannah Barnes RN) documented in this encounter Orders Admission Count Last Ordered Date First Orde red Date TRANSFER TO OTHER [facility] 1 03/02 documented in this encounter Additional Health Concerns Infection Onset Date Last Indicated Resolved Time C difficile 01/13/2024 01/13/2024 03/02/2024 8:01 AM CDT History of C difficile 01/13/2024 01/13/2024 R/O C. Diff 03/02/2024 03/02/2024 03/02/2024 8:12 PM CDT documented as of this encounter Care Teams Pocketed Spring Machine Operator Relationship Specialty Start Date End Date Kyle Swann MD [address] [place] [id number] PCP - General Family Medicine 02/12/24 Karla Madera, RN Gis Analyst Developer 12/13/22 documented as of this encounter
--- OUTSIDE RECORDS SUMMARY | 2024-03-10 13:25 | XMS_ITS | Encounter Summary ---
Author Organization [facility] Address [address] [place] [address] Phone Care Team Providers Care Order Entry Clerk Name Role Phone Karla Madera RN Unavailable [phone] Kyle Swann MD Primary Care Provider [phone] Encounter Details Date Type Department Care Team (Latest Contact Info) Description 03/01/2024 Travel Social History Tobacco Use Types Packs/Day Years Used Date Smoking Tobacco: Every Day Cigarettes 1.5 40 Smokeless Tobacco: Never Comments:1 pack Alcohol Use Standard Drinks/Week Comments Yes 0 (1 standard drink = 0.6 oz pur e alcohol) five drinks per week [facility] Utilities Answer Date Recorded In the [...] any time in the past 12 m [facility], were you homeless or living in a long-term (including now)? Patient declined 03/01/2024 EH IP [...] Info) Description 03/17/2024 2:20 PM CDT Appointment [facility] GASTROENTEROLOGY [address] [place] [address] Megan Herring PA-C [address] [place] [phone] documented as of this encounter Visit Diagnoses Not on filedocumented in this encounter Additional Health Concerns Infection Onset Date Last Indicated Resolved Time C difficile 01/13/2024 01/13/2024 03/02/2024 8:01 AM CDT History of C difficile 01/13/2024 01/13/2024 documented as of this encounter Care Teams Order Entry Clerk Relationship Specialty Start Date End Date Kyle Swann MD [address] [place] [address] PCP - General Family Medicine 02/12/24 Karla Madera RN Mapping Editor 12/13/22 documented as of this encounter
--- OUTSIDE RECORDS SUMMARY | 2024-03-10 13:25 | XMS_ITS | Encounter Summary ---
Author Organization [facility] Address [address] [place] [id number] Phone Care Team Providers Care Bale Breaker Operator Name Role Phone Karla Madera RN Unavailable [phone] Kyle Swann MD Primary Care Provider [phone] Reason for Visit * Ancillary Services (Routine) - Closed Specialty Diagnoses / Procedures Referred By Genia bautista Referred To Contact Radiology Diagnoses Hypoxia Procedures XR CHEST 2 VIEWS Kyle Swann MD [address] [place] [address] Referral ID Status Reason Start Date Expiration Date Visits Re quested Visits Authorized [id number] Closed 03/01/2024 05/31/2025 1 1 Encounter Details Date Type Department Care Team (Late Contact Info) Description 03/01/2024 4:00 PM CDT Ancillary Procedure [facility] RADIOLOGY [address] [place], [place] [address] Kyle Swann MD [address] [place], [place] [id number] Hypoxia Social History Tobacco Use Types Packs/Day Years Used Date Smoking Tobacco: Every Day Cigarettes 1.5 40 Smokeless Tobacco: Never Comments:1 pack Alcohol Use Standard Drinks/Week Comments Yes 0 (1 standard drink = 0.6 oz pur e alcohol) five drinks per week [facility] Utilities Answer Date Recorded In the past 12 months has [employer], gas, oil, or water company threatened to [...] any time in the past 12 m [facility], were you homeless or living in a nursing home (including now)? Patient declined 03/01/2024 EH IP [...] Info) Description 03/17/2024 2:20 PM CDT Appointment [facility] GASTROENTEROLOGY [address] [place], [place] [address] Megan Herring PA-C [address] [place] [phone] documented as of this encounter Procedures Procedure Name Priority Date/Time Associated Diagnosis Comments XR CHEST 2 VIEWS Routine 03/01/2024 4:08 PM CDT Hypoxia documented in this encounter Results * XR [...] Swann MD EC DIAGNOSTIC IMAGIN G ORDERABLES documented in this encounter Visit Diagnoses Diagnosis Hypoxia Hypoxemia documented in this encounter Additional Health Concerns Infection Onset Date Last Indicated Resolved Time C difficile 01/13/2024 01/13/2024 03/02/2024 8:01 AM CDT History of C difficile 01/13/2024 01/13/2024 documented as of this encounter Care Teams Bale Breaker Operator Relationship Specialty Start Date End Date Kyle Swann MD [address] [place] [address] PCP - General Family Medicine 02/12/24 Karla Madera, RN Field Artillery Crewmember 12/13/22 documented as of this encounter
--- OUTSIDE RECORDS SUMMARY | 2024-03-10 13:25 | XMS_ITS | Encounter Summary ---
Author Organization [facility] Address [address] [address] Phone Care Team Providers Care Gifted Program Teacher Name Role Phone Karla Madera RN Unavailable [phone] Kyle Swann MD Primary Care Provider [phone] Encounter Details Date Type Department Care Team (Late st Contact Info) Description 02/19/2024 Telephone [facility] INFECTIOUS DISEASE [address] [place] [address] Deepika Cartagena Social History Tobacco [...] * Telephone Encounter - Deepika Cartagena - 02/19/2024 10:17 AM CDT Author attempted to contact patient to . Please communicate or obtain the following information to/from the patient:: appt. Please schedule an appointment for patient, using visit type: Consult with [facility] documented in this encounter Plan of Treatment Upcoming Encounters Date Type Department Care Team (Late st Contact Info) Description 03/17/2024 2:20 PM CDT Appointment [facility] GASTROENTEROLOGY [address] [place] [address] Megan Herring PA-C [address] [place] [phone] documented as of this encounter Visit Diagnoses Not on filedocumented in this encounter Additional Health Concerns Infection Onset Date Last Indicated Resolved Time C difficile 01/13/2024 01/13/2024 03/02/2024 8:01 AM CDT History of C difficile 01/13/2024 01/13/2024 documented as of this encounter Care Teams Gifted Program Teacher Relationship Specialty Start Date End Date Kyle Swann MD [address] [place] [address] PCP - General Family Medicine 02/12/24 Karla Madera RN Model And Dye Person 12/13/22 documented as of this encounter
--- OUTSIDE RECORDS SUMMARY | 2024-03-10 13:25 | XMS_ITS | Encounter Summary ---
Author Organization [facility] Address [address] [address] Phone Care Team Providers Care Finish Grinder Name Role Phone Karla Madera RN Unavailable [phone] Kyle Swann MD Primary Care Provider [phone] Reason for Visit * Reason Onset Date Comments Results 03/01/2024 Encounter Details Date Type Department Care Team (Late st Contact Info) Description 03/01/2024 Nurse Triage - NURSE CARE LINE [address] [place] [address] Kerri Ramos RN Results Social History Tobacco Use Types Packs/Day Years Used Date Smoking Tobacco: Every Day Cigarettes 1.5 40 Smokeless Tobacco: Never Comments:1 pack Alcohol Use Standard Drinks/Week Comments Yes 0 (1 standard drink = 0.6 oz pur e alcohol) five drinks per week [facility] Utilities Answer Date Recorded In the past 12 months has [employer] gas, oil, or water [employer] threatened to shut off services in your [...] time in the past 12 m [facility], were you homeless or living in a correction (including now)? Patient declined 03/01/2024 EH IP [...] encounter Miscellaneous Notes * Telephone Encounter - Kerri Ramos RN - 03/01/2024 7:44 PM CDT Critical lab Potassium 2.[address] Swann notified and reports he spoke with thepatient this evening and encouraged pt to go to the ED. Encounter closed. Reason for Disposition Lab result questions Lab or radiology calling with CRITICAL test results Protocols used: Information Only Call-A-AH, PCP Call - No Triage-A-AH documented in this encounter Plan of Treatment Upcoming Encounters Date Type Department Care Team (Late st Contact Info) Description 03/17/2024 2:20 PM CDT Appointment [facility] GASTROENTEROLOG[facility] [address] [place], [place] [phone] Megan Herring PA-C [address] [place] [phone] documented as of this encounter Visit Diagnoses Not on filedocumented in this encounter Additional Health Concerns Infection Onset Date Last Indicated Resolved Time C difficile 01/13/2024 01/13/2024 03/02/2024 8:01 AM CDT History of C difficile 01/13/2024 01/13/2024 documented as of this encounter Care Teams Finish Grinder Relationship Specialty Start Date End Date Kyle Swann MD [address] [place] [address] PCP - General Family Medicine 02/12/24 Karla Madera RN Quail Farmer 12/13/22 documented as of this encounter
--- OUTSIDE RECORDS SUMMARY | 2024-03-10 13:26 | XMS_ITS | Encounter Summary ---
Demographics Address [address] [place] [address] Mobile Phone Home Phone Email Address Email Address .XD Nutrition Preferred Language Japanese Marital Status Amish Affiliation Unknown Race White Ethnic Group Not or Lati no Author Organization [facility] Address [address] [address] Phone Care Team Providers Care Golf Range Attendant Name Role Phone Kyle Swann MD Primary Care Provider [phone] Karla Madera RN Unavailable [phone] Reason for Visit * Reason Onset Date Comments Results 01/12/2024 -Critical magnes ium 1.1- Encounter Details Date Type Department Care Team (Late st Contact Info) Description 01/12/2024 Telephone [facility] - NURSE CARE LINE [address] [place] [address] Sveta Costa RN Results (-Critical magnesium 1.1-) Social History Tobacco Use Types Packs/Day Years [...] on file documented as of this encounter Miscellaneous Notes * Telephone Encounter - Julieta Ledesma RN - 01/13/2024 12:31 PM CDT See call with nurse - she was able to get ahold of patient and patient is going to the ED for electrolyte replacement. * Telephone Encounter - Julieta Ledesma RN - 01/13/2024 9:00 AM CDT Images from the original note were not included. Clerical Aide Teacher attempted to reach patient in regards to information below. Patient was unavailable at the time of the call. Clerical Aide Teacher left voicemail with limited detail asking patient to return call to the clinic when able to discuss information. Kyle Swann MD P Proc Rn Caller: Unspecified (Yesterday, 9:56 PM) Please call and check in with her today, I would recommend recheck magnesium tomorrow () ifhillary is doing better today. IF doing worse she should get rechecked if we have an opening, or back in UC if we don't. I also haven't seen her in almost 3 years, and she has multiple chronic illnesses that need follow-up. She can reschedule with me at some point in the future for chronic disease management follow-up,or choose a different PCP. She has bounced around between [place] and [facility] a bit, should try to find a medical home/stable PCP. -Kyle Swann MD Family Medicine [facility] * Telephone Encounter - Sveta Costa RN - 01/12/2024 9:49 PM CDT Kyle Swann MD, Critical magnesium 1.1. Lab ordered by [facility] provider Jay Riggs APRN, ACTUARY MANAGER today, 01/12/24. Patient was seen for diarrhea and nausea. Provider thought this was likely gastroenteritis. C.diff and enteric pathogens also ordered; still pending. Contacted the office automation clerk provider Dr. Leong to report this critical lab. She requesting triager contactthe patient this evening. Contacted the patient who states she's had an improvement of symptoms and has been able to push fluids at home tonight. Denies muscle weakness, missed or skipped heartbeats, no numbness or tingling, no cramping, no abnormal eye movements. Routing to you for follow up on 01/13/24. Thank you. documented in this encounter Plan of Treatment Upcoming Encounters Date Type Department Care Team (Late st Contact Info) Description 03/17/2024 2:20 PM CDT Appointment [facility]STR[facility] [address] [place], [place] [phone] Megan Herring PA-C [address] [place] [phone] documented as of this encounter Visit Diagnoses Not on filedocumented in this encounter Additional Health Concerns Infection Onset Date Last Indicated Resolved Time R/O Enteric Pathogens 01/12/2024 01/13/20242023 3:35 PM CDT R/O C. Diff 01/12/2024 01/13/2024 01/13/2024 3:26 PM CDT documented as of this encounter Care Teams Golf Range Attendant Relationship Specialty Start Date End Date Kyle Swann MD [address] [place] [address] PCP - General Family Medicine 04/16/21 01/12/24 Karla Madera RN [employer] Special Ed Teacher 12/13/22 documented as of this encounter
--- OUTSIDE RECORDS SUMMARY | 2024-03-10 13:26 | XMS_ITS | Encounter Summary ---
Author Organization [facility] Address [address] [address] Phone Care Team Providers Care Mainframe Programmer Analyst Name Role Phone Kyle Swann MD Primary Care Provider [phone] Karla Madera RN Unavailable [phone] Reason for Referral * Office Visit (Urgent) - Pending Review Specialty Diagnoses / Procedures Referred By Genia bautista Referred To Contact Family Medicine Diagnoses Nausea Diarrhea of presumed infectious origin Jay Riggs APRN, CNP [address] [place] [address] Referral ID Status Reason Start Date Expiration Date V isits Requested Visits Authorized [id number] Pending Review 01/12/2024 01/11/2025 1 1 Question Answer What type of Primary Care are you looking for? General Office Visit [4] Does the patient want to schedule their appointment prior to leaving today? No Comments Location: [facility]. Reason for Referral: Follow-up visit: diarrhea, urgent care visit ## Scheduling Instructions: Please call the [facility] Schedulers at [phone] or send the referral to the [facility] Schedulers pool (P ). ## [place] [address] [place], [place] Phone #: [phone] Fax #: [phone] Reason for Visit * Reason Comments Pain Pt comes in with a d iverticulitis flare up that has been going on for the last few weeks. Encounter Details Date Type Department Care Team (Late st Contact Info) Description 01/12/2024 5:10 PM [address]T Office Visit [facility] [address] [place], [place] [address] Jay Riggs, NITRO MAN, AIR POLLUTION INSPECTOR [address] [place] [address] Diarrhea of presumed infectious origin (Primary Dx); Nausea Social History Tobacco Use Types Packs/Day Years [...] Sign Reading Time Taken Comments Blood Pressure 131/84 01/12/2024 5:29 PM CDT Pulse 89 01/12/2024 5:24 PM CDT Temperature 36.8 ??C (98.2 ??F) 01/12/2024 5:24 PM CD T Respiratory Rate 16 01/12/2024 5:24 PM CDT Oxygen Saturation 92% 01/12/2024 5:24 PM CDT Inhaled Oxygen Concentration - - Weight 58 kg (127 lb 13.9 oz) 01/12/2024 5:24 PM CDT Height - - Body Mass Index 22.3 04/16/2021 7:56 AM CDT documented in this encounter Patient Instructions * Patient Instructions* Jay Riggs, WALTER, AIR POLLUTION INSPECTOR - 01/12/2024 5:10 PM CDT For nausea and vomiting: Take ondansetron 4 mg by mouth every 8 hours as needed. Continue with Pedialyte to hydrate. [place], low-residue foods may be better tolerated. Consider saltine crackers, broths or soups, noodles, oatmeal, bananas, yogurt, and boiled vegetables. Avoid fatty foods, caffeine, mints, alcohol, citrus, oils, spicy, acidic. Go to the emergency department if: Vomiting that won't stop Vomiting blood Bloody stool or rectal bleeding Severe abdominal pain Follow up with your primary care provider's office within the next 48 to 72 hours. If symptoms remain unchanged, or worsen, make an appointment with primary care, or return to urgentcare for re-evaluation. If you feel you are having an emergency, present to the emergency department for further evaluation. Thank you for choosing Urgent Care at [facility] for your health care needs today. A few suggestions that will help us in assuring your health care needs are met during your visit, please remember: [employer] is available to view results and schedule appointments. If you are having difficulty accessing your [employer], please call the support line at: If your results are abnormal we will notify you by phone. If results are normal they are able to bereviewed in [employer]. If you are not able to access [employer] and would like to review results, please call [facility] number ([phone]) and ask to speak to the Nurse Care Line. documented in this encounter Ordered Prescriptions Prescription Sig Dispensed Refills Start Date End Da te ondansetron (Zofran ODT) 4 MG disintegrating tabletIndications:Nausea Take 1 Tablet by mouth every eight hours as needed for Nausea or Vomiting. 15 Tablet 01/12/2024 03/01/2024 documented in this encounter Progress Notes * Jay Riggs APRN, CNP - 01/12/2024 5:10 PM CDT [facility] Progress Note Subjective Pain (Pt comes in with a diverticulitis flare up that has been going on for the last few weeks.) Yas Rivera is a(n) 64 year old female with a history of diverticulosis without diverticulitis who presents today 2 weeks of progressively worsening symptoms including fatigue for the past week after moving into a new home, occasional nausea, occasional abdominal cramping, and frequent diarrhea oc curring 7-10 times per day the patient describes as liquid diarrhea. Patient has tried Imodium which caused patient to gag medication backup, Pepto-Bismol, brat diet for few days. Patient is concerned due to patient's mother and sister having history of diverticulitis. Patient denies fever or chills, vomiting, sharp abdominal pain in any particular areas, bloating, melena or hematochezia, urinarysymptoms or hematuria, recent travel or antibiotics. Objective Vitals: 01/12/24 1724 01/12/24 1729 BP: (!) 146/87 131/84 Pulse: 89 Resp: 16 Temp: 36.8 ??C (98.2 ??F) TempSrc: Oral SpO2: 92% Weight: 58 kg (127 lb 13.9 oz) No results found. Physical Exam Vitals reviewed. Constitutional: General: She is awake. She is not in acute distress. Appearance: Normal appearance. She is well-developed and well-groomed. She is not ill-appearing, toxic-appearing or diaphoretic. Cardiovascular: Rate and Rhythm: Normal rate and regular rhythm. Heart sounds: Normal heart sounds, S1 normal and S2 normal. No murmur heard. Pulmonary: Effort: Pulmonary effort is normal. No tachypnea, bradypnea, accessory muscle usage or respiratory distress. Breath sounds: Normal breath sounds and air entry. No stridor, decreased air movement or transmitted upper airway sounds. No decreased breath sounds, wheezing, rhonchi or rales. Abdominal: General: Abdomen is flat. Bowel sounds are normal. There is no distension. Palpations: Abdomen is soft. There is no hepatomegaly, splenomegaly, mass or pulsatile mass. Tenderness: There is abdominal tenderness (initial mild epigastric tenderness that resolved on re-palpation) in the epigastric area. There is no right CVA tenderness or left CVA tenderness. Skin: General: Skin is warm and dry. Neurological: Mental Status: She is alert and oriented to person, place, and time. Psychiatric: Behavior: Behavior is cooperative. No results found for this or any previous visit (from the past 12 hour(s)). Assessment Vital signs stable. Differential diagnosis: Viral infection, bacterial gastroenteritis. (R19.7) Diarrhea of presumed infectious origin (primary encounter diagnosis) (R11.0) Nausea Orders Placed This Encounter Comprehensive Met Panel Standing Status: Future Number of Occurrences: 1 Standing Expiration Date: 01/11/2025 Lipase Standing Status: Future Number of Occurrences: 1 Standing Expiration Date: 01/11/2025 CRP Standing Status: Future Number of Occurrences: 1 Standing Expiration Date: 01/11/2025 Hemogram with diff Standing Status: Future Number of Occurrences: 1 Standing Expiration Date: 01/11/2025 Magnesium Standing Status: Future Number of Occurrences: 1 Standing Expiration Date: 01/11/2025 Appt with Family [facility] Referral Priority: Urgent Referral Type: Office Visit Requested Specialty: Family Medicine Number of Visits Requested: 1 Expiration Date: 01/11/2025 Enteric Pathogens by Nucleic Acid Testing Standing Status: Future Number of Occurrences: 1 Standing Expiration Date: 01/11/2025 Clostridium difficile by Molecular Detection Standing Status: Future Number of Occurrences: 1 Standing Expiration Date: 01/11/2025 Order Specific Question: Has the patient had LESS THAN 3 loose stools in the last 24 hours? (the answer to this should be NO to continue with the test). Answer: No Order Specific Question: Has the patient been on stool softeners, laxatives, or tube feeds within the last 48 hours? (the answer to this should be NO to continue with the test) Answer: No Order Specific Question: Has the patient been tested for C. difficile in the last 7 days? (the answer to this should be NO to continue with the test) Answer: No ondansetron (Zofran ODT) disintegrating tablet 4 mg ondansetron (Zofran ODT) 4 MG disintegrating tablet Sig: Take 1 Tablet by mouth every eight hours as needed for Nausea or Vomiting. Dispense: 15 Tablet Refill: 0 We administered ondansetron. Patient reports improved symptoms, patient was monitored for approximately 15 minutes after administration and did not show signs of reaction. We discussed limitations of urgent care for advanced imaging. Through shared decision making agreedto proceed with lab workup and close follow-up with primary care. Plan Plan to treat likely gastroenteritis with supportive cares, nausea with Zofran. Recommend [id number] supportive care, symptom monitoring, and follow up with primary care. I discussed with patient, and/or caregiver (if present), and/or support person (if present): My diagnostic considerations and recommendations, who voiced understanding and agreement with the treatment plan. All questions were answered. We discussed potential side effects of any prescribed or recommended therapies, as well as expectations for response to treatments. If appropriate to this visit, advised to contact their primary care provider's office if there is no improvement or worsening of conditions or symptoms, as well as reviewed when to be evaluated emergently. Instructions and education were reviewed in the room, handout provided. See AVS. documented in this encounter Miscellaneous Notes * Result Encounter Note - Jennie Quiros APRN, CNP - 01/12/2024 5:10 PM CDT Patient contacted, advised to present to ER for low magnesium, see telephone note. documented in this encounter Plan of Treatment Upcoming Encounters Date Type Department Care Team (Late st Contact Info) Description 03/17/2024 2:20 PM CDT Appointment [facility] [address] [place] [id number] Megan Herring PA-C [address] [place] [address] Scheduled Referrals Name Type Priority Associated Diagnoses Orde r Schedule APPT WITH FAMILY MEDICINE REFERRAL Routine Nausea Diarrhea of presumed infectious origin Ordered: 01/12/2024 documented as of this encounter Procedures Procedure Name Priority Date/Time Associated Diagnosis Comments ENTERIC PATHOGENS BY NUCLEIC ACID TESTING Routine 01/13/2024 10:00 AM CDT Diarrhea of presumed infectious origin CLOSTRIDIUM DIFFICILE BY MOLECULAR DETECTION Routine 01/13/2024 10:00 AM CDT Diarrhea of presumed infectious origin C REACTIVE PROTEIN STAT 01/12/2024 5: 56 PM CDT Diarrhea of presumed infectious origin COMPREHENSIVE METABOLIC PANEL STAT 01/12/2024 5:56 PM CDT Diarrhea of presumed infectious origin HEMOGRAM/DIFF STAT 01/12/2024 5:56 PM CDT Diarrhea of presumed infectious origin MAGNESIUM STAT 01/12/2024 5:56 PM CDT Diarrhea of presumed infectious origin LIPASE STAT 01/12/2024 5:56 PM CDT Diarrhea of presumed infectious origin documented in this encounter Results * (ABNORMAL) CLOSTRIDIUM DIFFICILE BY MOLECULAR DETECTION (01/13/2024 10:00 AM CDT) Clostridium difficile Positive(A) Negative 01/13/2024 3:26 PM CDT [facility] Clostridium difficile strain 027 Presumptive Negative Presumptive Negative 01/13/2024 3:26 PM CDT [facility] Stool FECES / Unknown Non-blood collection / Unknown 01/13/2024 10:00 AM CDT 01/13/2024 11:21 AM CDT Narrative [facility] - 01/13/2024 3:26 PM CDT Results from the Xpert C. [...] real-time polymerase chain reaction (PCR) on the [employer] Dx System. ?? Jay Riggs APRN, AIR POLLUTION INSPECTOR MICROBIOLO GY - GENERAL ORDERABLES [facility] [address] [place] [id number] * ENTERIC PATHOGENS BY NUCLEIC ACID TESTING (01/13/2024 10:00 AM CDT) Plesiomonas shigelloides Not Detected Not Detected 01/13/2024 3:35 PM CDT [facility] Salmonella species Not Detected Not Detected 01/13/2024 3:35 PM CDT [facility] Vibrio species Not Detected Not Detected 01/13/2024 3:35 PM CDT [facility] Vibrio cholerae Not Detected Not Detected 01/13/2024 3:35 PM CDT [facility] Yersinia enterocolitica Not Detected Not Detected 01/13/2024 3:35 PM CDT [facility] Enteroaggregative E. coli (EAEC) Not Detected Not Detected 01/13/2024 3:35 PM CDT [facility] Enteropathogenic E. coli (EPEC) Not Detected Not Detected 01/13/2024 3:35 PM CDT [facility] Enterotoxigenic E. coli (ETEC) Not Detected Not Detected 01/13/2024 3:35 PM CDT [facility] Shiga-like Toxin producing E. coli (STEC) Not Detected Not Detected 01/13/2024 3:35 PM CDT [facility] Shigella/Enteroinvas russell E. coli (EIEC) Not Detected Not Detected 01/13/2024 3:35 PM CDT [facility] Cyclospora cayetanensis Not Detected Not Detected 01/13/2024 3:35 PM CDT [facility] Entamoeba histolytica Not Detected Not Detected 01/13/2024 3:35 PM CDT [facility] Giardia Not Detected Not Detected 01/13/2024 3:35 PM CDT [facility] Adenovirus F40/41 Not Detected Not Detected 01/13/2024 3:35 PM CDT [facility] Astrovirus Not Detected Not Detected 01/13/2024 3:35 PM CDT [facility] Norovirus GI/GII Not Detected Not Detected 01/13/2024 3:35 PM CDT [facility] Rotavirus Not Detected Not Detected 01/13/2024 3:35 PM CDT [facility] Sapovirus Not Detected Not Detected 01/13/2024 3:35 PM CDT [facility] Campylobacter species Not Detected Not Detected 01/13/2024 3:35 PM CDT [facility] Cryptosporidium species Not Detected Not Detected 01/13/2024 3:35 PM CDT [facility] Stool FECES / Unknown Non-blood collection / Unknown 01/13/2024 10:00 AM CDT 01/13/2024 11:21 AM CDT Narrative [facility] - 01/13/2024 3:35 PM CDT Test detects target nucleic acid by multiplex polymerase chain reaction (PCR) on the [employer] System. Jay Riggs APRN, CNP EC MICROBIOLO GY - GENERAL ORDERABLES Performing Organization Address [facility] de Phone Number [facility] [address] * (ABNORMAL) MAGNESIUM (01/12/2024 5:56 PM CDT) Magnesium 1.1(LL) 1.8 - 2.7 mg/dL 01/12/2024 9:50 PM CDT [facility] Blood BLOOD SPECIMEN / Unknown Venipuncture / Unknown 01/12/2024 5:56 PM CDT 01/12/2024 6:04 PM CDT Jay Riggs APRN AIR POLLUTION INSPECTOR EC CHEMISTRY ORDERABLES [facility] [address] [place], [place] [address] * (ABNORMAL) HEMOGRAM/DIFFERENTIAL (01/12/2024 5:56 PM CDT) WBC 8.3 3.2 - 11.0 10*9/L 01/12/2024 9:14 PM CDT [facility] RBC 4.23 3.77 - 5.24 10*12/L 01/12/2024 9:14 PM CDT [facility] HGB 15.8(H) 11.2 - 15.5 g/dL 01/12/2024 9:14 PM CDT [facility] HCT 47.5(H) 34.3 - 46.0 % 01/12/2024 9:14 PM CDT [facility] MCV 112.3(H) 81.4 - 99.0 fL 01/12/2024 9:14 PM CDT [facility] MCH 37.4(H) 26.7 - 33.1 pg 01/12/2024 9:14 PM CDT [facility] MCHC 33.3 31.6 - 35.5 g/dL 01/12/2024 9:14 PM CDT [facility] RDW 13.7 11.3 - 14.6 % 01/12/2024 9:14 PM CDT [facility] PLT 220 130 - 375 10*9/L 01/12/2024 9:14 PM CDT [facility] Neutrophils % 74.0 % 01/12/2024 9:14 PM CDT [facility] Lymphocytes % 16.7 % 01/12/2024 9:14 PM CDT [facility] Monocytes % 7.8 % 01/12/2024 9:14 PM CDT [facility] Eosinophils % 0.8 % 01/12/2024 9:14 PM CDT [facility] Basophils % 0.5 % 01/12/2024 9:14 PM CDT [facility] Immature Granulocytes % 0.2 % 01/12/2024 9:14 PM CDT [facility] Neutrophils Absolute 6.1 1.5 - 7.6 10*9/L 01/12/2024 9:14 PM CDT [facility] Lymphocytes Absolute 1.4 0.8 - 3.3 10*9/L 01/12/2024 9:14 PM CDT [facility] Monocytes Absolute 0.6 0.2 - 0.9 10*9/L 01/12/2024 9:14 PM CDT [facility] Eosinophils Absolute 0.1 0.0 - 0.4 10*9/L 01/12/2024 9:14 PM CDT [facility] Basophils Absolute 0.0 0.0 - 0.1 10*9/L 01/12/2024 9:14 PM CDT [facility] Immature Granulocytes Absolute 0.02 0.00 - 0.06 10*9/L 01/12/2024 9:14 PM CDT [facility] Blood BLOOD SPECIMEN / Unknown Venipuncture / Unknown 01/12/2024 5:56 PM CDT 01/12/2024 6:04 PM CDT Jay Riggs APRN, AIR POLLUTION INSPECTOR EC HEMATOLOGY ORDERABLES Performing Organization Address City/[facility] Co de Phone Number [facility] [address] * (ABNORMAL) C-REACTIVE PROTEIN (01/12/2024 5:56 PM CDT) C-Reactive Protein 1.1(H) 0.0 - 0.8 mg/dL 01/12/2024 9:35 PM CDT [facility] Blood BLOOD SPECIMEN / Unknown Venipuncture / Unknown 01/12/2024 5:56 PM CDT 01/12/2024 6:04 PM CDT Jay Riggs APRN AIR POLLUTION INSPECTOR EC CHEMISTRY ORDERABLES Performing Organization Address City/[facility] Co de Phone Number [facility] [address] [place] [address] * LIPASE (01/12/2024 5:56 PM CDT) Lipase 33 12 - 84 IU/L 01/12/2024 9:35 PM CDT [facility] Blood BLOOD SPECIMEN / Unknown Venipuncture / Unknown 01/12/2024 5:56 PM CDT 01/12/2024 6:04 PM CDT Jay Riggs APRN, AIR POLLUTION INSPECTOR EC CHEMISTRY ORDERABLES [facility] [address] [place], [place] [id number] * (ABNORMAL) COMPREHENSIVE METABOLIC PANEL (01/12/2024 5:56 PM CDT) Sodium 139 134 - 143 mEq/L 01/12/2024 9:35 PM CDT [facility] Potassium 3.0(L) 3.4 - 5.1 mEq/L 01/12/2024 9:35 PM CDT [facility] Chloride 91(L) 99 - 110 mEq/L 01/12/2024 9:35 PM CDT [facility] Carbon Dioxide 32(H) 19 - 29 mEq/L 01/12/2024 9:35 PM CDT [facility] Anion Gap 16.0(H) 3.0 - 15.0 mEq/L 01/12/2024 9:35 PM CDT [facility] Blood Urea Nitrogen 15 5 - 24 mg/dL 01/12/2024 9:35 PM CDT [facility] Creatinine 0.74 0.40 - 1.00 mg/dL 01/12/2024 9:35 PM CDT [facility] Glomerular Filtration Rate 89 >60 mL/min/1. 73 m*2 01/12/2024 9:35 PM CDT [facility] Comment:Risk of cardiovascul ar disease increases when GFR is abnormal; persistently reduced GFR values are a specific indication of CKD. This calculation uses CKD- EPI 2020 equation without adjustment for race; it has not been validated in women. Calcium 9.0 8.4 - 10.5 mg/dL 01/12/2024 9:35 PM CDT [facility] Glucose 124(H) 70 - 99 mg/dL 01/12/2024 9:35 PM CDT [facility] Protein, Total 7.2 6.0 - 8.0 g/dL 01/12/2024 9:35 PM CDT [facility] Albumin 3.6 3.5 - 5.0 g/dL 01/12/2024 9:35 PM CDT [facility] Alkaline Phosphatase 265(H) 40 - 150 IU/L 01/12/2024 9:35 PM CDT [facility] Aspartate Aminotransferase 107(H) 10 - 40 IU/L 01/12/2024 9:35 PM CDT [facility] Alanine Aminotransferase 40(H) 6 - 31 IU/L 01/12/2024 9:35 PM CDT [facility] Bilirubin, Total 1.2 0.2 - 1.2 mg/dL 01/12/2024 9:35 PM CDT [facility] Blood BLOOD SPECIMEN / Unknown Venipuncture / Unknown 01/12/2024 5:56 PM CDT 01/12/2024 6:04 PM CDT Narrative [facility] - 01/12/2024 9:35 PM CDT Current ADA criteria for Glucose: ?Normal: 70-99 mg/dL ?Impaired Fasting Glucose: 100-125 mg/dL ?Diabetes Mellitus: at or above 126 mg/dL The diagnosis of diabetes must be confirmed on a subsequent day by measuring Fasting Plasma Glucose, 2-hr PG or random plasma glucose (if symptoms are present). Jay Riggs APRN, AIR POLLUTION INSPECTOR EC CHEMISTRY ORDERABLES Performing Organization Address City/State/[facility] Co de Phone Number [facility] [address] [place] [address] documented in this encounter Visit Diagnoses Diagnosis Diarrhea of presumed infectious origin- Primary Nausea Nausea alone documented in this encounter Administered Medications Inactive Administered Medications Medication Order MAR Action Action Date Dose Rate Site ondansetron (Zofran ODT) disintegrating tablet 4 mg 4 mg, Oral, ONCE, 1 dose, On Thu01/12/24 at 1800 Given 01/12/2024 5:54 PM CDT 4 mg documented in this encounter Orders Medications Ordered That Chad ht Not Have Been Administered Count Last Ordered Date First Ordered Date ondansetron (Zofran ODT) dis integrating tablet 4 mg 1 01/12/2024 documented in this encounter Additional Health Concerns Infection Onset Date Last Indicated Resolved Time R/O Enteric Pathogens 01/12/2024 01/13/20242023 3:35 PM CDT R/O C. Diff 01/12/2024 01/13/2024 01/13/2024 3:26 PM CDT documented as of this encounter Care Teams Mainframe Programmer Analyst Relationship Specialty Start Date End Date Kyle Swann MD [address] [place] [id number] PCP - General Family Medicine 04/16/21 01/12/24 Karla Madera, RN Real Estate Closing Coordinator 12/13/22 documented as of this encounter
--- OUTSIDE RECORDS SUMMARY | 2024-03-10 13:26 | XMS_ITS | Encounter Summary ---
Author Organization [facility] Address [address] [address] Phone Care Team Providers Care Custom Shop Worker Name Role Phone Karla Madera RN Unavailable [phone] Reason for Visit * Reason Comments Abnormal Lab Results Encounter Details Date Type Department Care Team ([facility] st Contact Info) Description 01/13/2024 1:31 PM CDT - 01/13/2024 7:02 PM CDT Emergency [facility] [address] [place] [id number] Jose Smith, [address] [place] [id number] Hiral Tripp MD [address] [place] [id number] Hypokalemia (Primary Dx); Hypomagnesemia; Diarrhea, unspecified type; C. difficile diarrhea Discharge Disposition: Home and/or Self Care Social [...] Sign Reading Time Taken Comments Blood Pressure 130/75 01/13/2024 5:30 PM CDT Pulse 89 01/13/2024 5:30 PM CDT Temperature 36.6 ??C (97.9 ??F) 01/13/2024 12:48 PM C DT Respiratory Rate 18 01/13/2024 5:30 PM CDT Oxygen Saturation 95% 01/13/2024 5:30 PM CDT Inhaled Oxygen Concentration - - Weight 58 kg (127 lb 13.9 oz) 01/13/2024 12:48 P M CDT Height - - Body Mass Index 22.3 04/16/2021 7:56 AM CDT documented in this encounter Discharge Instructions * Discharge Instructions* Hiral Tripp MD - 01/13/2024 4:41 PM CDT Images from the original note were not included. Please take the antibiotics for 10 days. I like for you to see your primary provider in the next few days to make sure your electrolytes are holding strong. If there is any acute change or discharge condition such as abdominal pain, unable to eat or drink,lightheadedness, dizziness or any other acute change please call your primary provider to be seen in clinic if not available return nearest ER. If you do not have a primary provider I gave you the number to [facility] would be happy to see you on close follow-up Bacterial Diarrhea (Adult) Gastroenteritis is an infection in the intestinal tract. It is sometimes called the stomach flu but it is not related to influenza. Although most diarrhea is caused by a virus, you have a bacterialinfection. It causes diarrhea. Diarrhea is the passing of loose watery stools 3 or more times a day. Antibiotics are often used to treat this type of infection. Sometimes it is necessary to wait untila stool culture is complete before an antibiotic can be chosen. This may take about 2 days. Certaintypes of gastroenteritis should not be treated with antibiotics. Such treatment can lead to other problems. Because of this, don't take antibiotics until your provider has the results of your stool culture and advises an appropriate antibiotic. Along with diarrhea, you may have these symptoms: Belly (abdominal) pain and cramping Nausea and vomiting Loss of bowel control Fever and chills Bloody stools The main danger of diarrhea is dehydration. Dehydration is the loss of too much water and other fluids from the body without taking in enough fluids to replace it. When this occurs, body fluids must be replaced with oral rehydration solutions. These solutions are available at pharmacies and most grocery stores without a prescription. Home care Medicine If antibiotics were prescribed, be sure you take them as directed until they are finished. Keep taking the antibiotics as prescribed even if your symptoms go away and you feel better. You may use acetaminophen or nonsteroidal anti-inflammatory drugs (NSAIDs) such as ibuprofen to control fever, unless another medicine was prescribed. If you have chronic liver or kidney disease or ever had a stomach ulcer or gastrointestinal bleeding, talk with your healthcare provider before using these medicines. Aspirin should never be used in anyone under 18 years of age who is ill with a fever. It may cause severe liver damage. Don't increase your use of NSAID medicines if you are alreadytaking the medicine for another condition (such as arthritis). Don't use NSAIDs if you are on dailyaspirin therapy (such as for heart disease or after stroke). Don't take [id number] anti-diarrheal medicines, unless advised by your healthcare provider. They can make your bacterial diarrhea worse. This is especially true if you have a fever or the diarrhea is bloody. Prevent spread of the illness If symptoms are severe, rest at home for the next 24 hours or until you are feeling better. Wash your hands with soap and water or use alcohol-based computer project manager after touching anyone who is sick, after using the toilet, and before meals. Teach all people in your home when and how to wash their hands. Wet your hands with clean, running water and lather the backs of your hands, between your fingers, and under your nails. Scrub your hands for at least 20 seconds. If you need a timer, try humming the ???Happy Birthday?? song from beginning to end twice. Rinse your hands well and dry them with a clean towel. Clean the toilet after each use. Don't prepare or serve food to others. Diet To prevent dehydration, sip water and clear liquids, soft drinks without caffeine, maribell blayne, mineral water, decaf tea and coffee. Drink small amounts at a time, don't guzzle it. Sports drinks are not a good choice because they have too much sugar and not enough electrolytes. Commercially available oral rehydration solutions are best. If you eat, don't have fatty, greasy, spicy, or fried foods. Don't eat or drink dairy products if you have diarrhea, as they can make diarrhea worse. Caffeine, tobacco, and alcohol can make the diarrhea, cramping, and pain worse. Remember, caffeine is in coffee, chocolate, corrine, some energy drinks, and teas. Try to stop using these substances until you have recovered. Don't force yourself to eat, especially if having cramping, vomiting, or diarrhea. Don't eat large amounts at a time, even if you are hungry During the first 24 hours (the first full day), follow the diet below: Beverages: Water, clear liquids, soft drinks without caffeine; maribell blayne, mineral water (plain or flavored), decaffeinated tea and coffee. Avoid sports drinks. Soups: Clear broth, consomm?? and bouillon Desserts: Plain gelatin, ice pops, and fruit juice bars. During the next 24 hours (the second day) you may add these to the diet above if you have improved: Hot cereal, plain toast, bread, rolls, crackers Plain noodles, rice, mashed potatoes, chicken noodle or rice soup Unsweetened canned fruit like applesauce and bananas (stay away from pineapple and citrus) Limit fat intake to less than 15 grams per day by skip margarine, butter, oils, mayonnaise, sauces,gravies, fried foods, peanut butter, meat, poultry and fish. Limit dairy. Limit fiber; don't eat raw or cooked vegetables, fresh fruits (except bananas) and bran cereals. Limit caffeine and chocolate. No spices or seasonings except salt. During the next 24 hours: Slowly go back to a normal diet, as you feel better and your symptoms lessen. If at any time your symptoms get worse, go back to clear liquids until you feel better. Follow-up care Follow up with your healthcare provider as advised. Call if you are not improving within 24 hours or if the diarrhea lasts more than 1 week on antibiotics. If a stool (diarrhea) sample was taken, youmay call in 2 days (or as directed) for the results. When to get medical advice Call your healthcare provider right away if any of the following occur: Increasing belly pain or constant lower right belly pain Continued vomiting (unable to keep liquids down) Frequent diarrhea (more than 5 times a day) Blood in vomit or stool (black or red color) Reduced oral intake Dark urine, reduced urine output Weakness, dizziness Drowsiness Fever of 100.4??F (38??C) or higher, or as directed by your healthcare provider New rash Symptoms get worse or you have new symptoms High-risk groups Some people are more prone to risks from diarrhea, like dehydration. These people include the very elderly, those with weak immune systems (for cancer treatment, for example), or those who have inflammatory bowel disease (Crohn's or colitis). If you are in one of these groups, see your healthcare provider right away if your diarrhea symptoms get worse or don't improve with treatment. Call 911 Call 911 if any of the following occur: Trouble breathing Confused Severe drowsiness or trouble awakening Fainting or loss of consciousness Rapid heart rate Seizure Stiff neck Tia last reviewed this educational content on 07/16/2020 ?? [id number] [employer]. All rights reserved. This information is not intended as a substitute for professional medical care. Always follow your healthcare professional's instructions. * Attachments The following attachments cannot be sent through Care Everywhere. * Diarrhea, Bacterial (Adult) (E[place]ian) documented in this encounter Medications at Time of Discharge Medication Sig Dispensed Refills Start Date End Date metoprolol succinate (Toprol-XL) 100 MG 24 hour extended-release tabletIndications:Essen tial hypertension with goal blood pressure less than 140/90 Take 0.5 Tablets by mouth one time a day. Do not crush or chew. 45 Tablet 1 10/12/2023 ASPIRIN 81 MG OR TABS 1 tablet once daily 100 3 09/13/2007 vancomycin (Vancocin) 125 MG capsuleIndications:Infe ction Take 1 Capsule by mouth four times a day for 10 days. Indications: Infection 40 Capsule 01/13/2024 01/24/2024 documented as of this encounter Ordered Prescriptions Prescription Sig Dispensed Refills Start Date End Da te vancomycin (Vancocin) 125 MG capsuleIndications:Infe ction Take 1 Capsule by mouth four times a day for 10 days. Indications: Infection 40 Capsule 01/13/2024 01/24/2024 vancomycin (Vancocin) 125 MG capsuleIndications:Infe ction Take 1 Capsule by mouth four times a day for 10 days. Indications: Infection 40 Capsule 01/13/2024 01/13/2024 vancomycin (Vancocin) 125 MG capsuleIndications:Infe ction Take 1 Capsule by mouth four times a day for 10 days. Indications: Infection 40 Capsule 01/13/2024 01/13/2024 documented in this encounter Discharge Disposition Disposition Code Departure Means Destination Home and/or Self [facility] documented in this encounter ED Notes * Hiral Tripp MD - 01/13/2024 6:48 PM CDT Addendum: I was asked to follow-up on magnesium and potassium levels on this patient, who came in and was found to have C. difficile related diarrhea. She was supplemented and electrolytes improved with a potassium of 3.8, and a mag of 1.8. She is safe for discharge at this point. Per Dr. Smith, hejust want to make sure these numbers were improving, and not declining despite the interventions here, before allowing her to discharge. Hiral Tripp MD 01/13/241848 * Hiral Robert RN - 01/13/2024 5:52 PM CDT Patient still has not finished her PO potassium drink. Social Work Supervisor reminded her to finish drink. * Jose Smith DO - 01/13/2024 1:41 PM CDT Images from the original note were not included. Patient: Yas Rivera Means of Arrival: Other Chief Complaint: Abnormal Lab Results History of Present Illness: HPI 64-year-old female with a history of generalized anxiety disorder, hypertension, tobacco use, who does drink a bottle of wine a day but does not get alcohol drawl symptoms that she states. Presents emerged department on referral because of urgent care noted that she had some low magnesium potassiumlevels. She admits that she has had 2 or 3 weeks of watery stool nonbloody. No recent travel. No recent diagnosis C. difficile. Stool studies prior to being evaluated in the ER. Denies any pain. Denies lightheadedness or dizziness. But does admit that her appetites not been great. Patient denies chest pain or shortness of breath. No recent falls or trauma. No other family members have been sick or unwell that she is aware of. She does live alone. She has no history of any heart attack or stroke, blood clots, heart for, COPD or diabetes she denies any illicit drug use and nor does she use marijuana. Has no history of inflammatory bowel disease she has had a colonoscopy in the past. Review of Systems Constitutional: Positive for fatigue. Negative for chills. HENT: Negative for congestion and sore throat. Eyes: Negative for pain. Respiratory: Negative for chest tightness and shortness of breath. Cardiovascular: Negative for chest pain. Gastrointestinal: Negative for abdominal pain. Genitourinary: Negative for dysuria. Musculoskeletal: Negative for arthralgias and back pain. Skin: Negative for wound. Allergic/Immunologic: Negative for immunocompromised state. Hematological: Does not bruise/bleed easily. Psychiatric/Behavioral: Negative for behavioral problems. Allergies Allergen Reactions Benzoyl Peroxide RASH allergic contact dermatitis allergic contact dermatitis allergic contact dermatitis Benzoyl Peroxide allergic contact dermatitis Environmental Some metals Latex Pruritis Prior to Admission Medication List Med List Status: ED Triage Only Set By: Kristine Morrison RN at 01/13/2024 12:49 PM albuterol HFA (Proair HFA, Ventolin HFA) 108 (90 Base) MCG/ACT inhalation aerosol Inhale 1-2 Puffs into the lungs every four hours as needed for Shortness of Breath. Shake before using. ASPIRIN 81 MG OR TABS 1 tablet once daily calcipotriene (Dovonex) 0.005 % cream Apply topically. hydroCHLOROthiazide (Microzide) 12.5 MG capsule Take 1 Capsule by mouth one time a day. ipratropium (Atrovent) 0.02 % nebulizer solution INHALE CONTENTS OF ONE VIAL VIA NEBULIZATION FOUR TIMES DAILY NEEDED metoprolol succinate (Toprol-XL) 100 MG 24 hour extended-release tablet Take 0.5 Tablets by mouth one time a day. Do not crush or chew. ondansetron (Zofran ODT) 4 MG disintegrating tablet Take 1 Tablet by mouth every eight hours as needed for Nausea or Vomiting. PARoxetine (Paxil) 20 MG tablet Take 1 Tablet by mouth every morning. vancomycin (Vancocin) 125 MG capsule Take 1 Capsule by mouth four times a day for 10 days. Indications: Infection Past Medical History: Past Medical History: Diagnosis [...] - unknown maternal/paternal Neuro Disease Maternal Grandfather [place] - in 70's Cardiovascular Disease Paternal Grandmother [...] Exam: Initial Vitals Most Recent Vitals Temp: 36.6 ??C (97.9 ??F) (01/13/24 1248) Temp: 36.6 ??C (97.9 ??F) (01/13/24 1248) Pulse: 97 (01/13/24 1248) Pulse: 97 (01/13/24 1630) Resp: 18 (01/13/24 1248) Resp: 20 (01/13/24 1630) BP: 132/82 (01/13/24 1248) BP: 125/63 (01/13/24 1630) SpO2: 93 % (01/13/24 1248) SpO2: 93 % (01/13/24 1630) Weight: 58 kg (127 lb 13.9 oz) (01/13/24 1248) Physical Exam: Physical Exam Vitals and nursing note reviewed. Constitutional: Appearance: She is well-developed. HENT: Head: Normocephalic and atraumatic. Eyes: Conjunctiva/sclera: Conjunctivae normal. Pupils: Pupils are equal, round, and reactive to light. Neck: Trachea: No tracheal deviation. Cardiovascular: Rate and Rhythm: Normal rate and regular rhythm. Heart sounds: Normal heart sounds. No murmur heard. Pulmonary: Effort: Pulmonary effort is normal. No respiratory distress. Breath sounds: Normal breath sounds. No stridor. No rales. Abdominal: General: Bowel sounds are normal. There is no distension. Palpations: Abdomen is soft. Tenderness: There is no abdominal tenderness. There is no rebound. Musculoskeletal: General: No tenderness. Normal range of motion. Cervical back: Normal range of motion. Skin: General: Skin is warm and dry. Neurological: Mental Status: She is alert and oriented to person, place, and time. Cranial Nerves: No cranial nerve deficit. Coordination: Coordination normal. Lab Results: Results for orders placed or performed during the hospital encounter of 01/13/24 BASIC METABOLIC PANEL Collection Time: 01/13/24 1:48 PM Result Value Ref Range Sodium 140 134 - 143 mEq/L Potassium 2.8 (LL) 3.4 - 5.1 mEq/L Chloride 94 (L) 99 - 110 mEq/L Carbon Dioxide 31 (H) 19 - 29 mEq/L Anion Gap 15.0 3.0 - 15.0 mEq/L Blood Urea Nitrogen 13 5 - 24 mg/dL Creatinine 0.72 0.40 - 1.00 mg/dL Glomerular Filtration Rate 92 >60 mL/min/1.73 m*2 Calcium 8.7 8.4 - 10.5 mg/dL Glucose 127 (H) 70 - 99 mg/dL MAGNESIUM Collection Time: 01/13/24 1:48 PM Result Value Ref Range Magnesium 1.0 (LL) 1.8 - 2.7 mg/dL Imaging Results: Imaging Results None Emergency Department Course: Vital signs noted afebrile 64-year-old female presents emerged part with above past medical history concerns of some electrolyte changes in the setting of nonbloody stool. Her abdominal exam is very benign. She not complainingof any pain or discomfort. No lightheadedness or dizziness. Patient is not tachycardic in the emergency department. Patient noted to have electrolyte changes from clinic. Repeat potassium is 2.8. Magnesium 1.0. IV repletion initiated in the emergency department. C. difficile collection did come back positive. First dose of oral Vanco provided in the emergency department. Primary provider initiated prescription for oral vancomycin so we continue this. She is been tolerating p.o. without difficulties. I do not feel a CT scan is indicated warranted. We will have repeat electrolyte evaluation at 6 PM and if potassium and magnesium are improving we will consider discharge at that time with close interval follow-up with the primary provider. If not patient would warrant hospitalization for IV repletion. Medications magnesium sulfate 2 g in 50 mL water for infusion (pre-mix) (0 g Intravenous Stopped 01/13/24 8247) potassium chloride 10 mEq/100 mL infusion 10 mEq (0 mEq Intravenous Stopped 01/13/24 1704) sodium chloride 0.9% (NS) infusion 1,000 mL (1,000 mL Intravenous New Bag by Other 01/13/24 1501) magnesium oxide tablet 400 mg (400 mg Oral Given 01/13/24 1620) potassium chloride (Klor-Con) packet 40 mEq (40 mEq Oral Given 01/13/24 1619) vancomycin (Vancocin) capsule 125 mg (125 mg Oral Given 01/13/24 1719) Procedures: Procedures Medical Decision Making Amount and/or Complexity of Data Reviewed Labs: ordered. Decision-making details documented in ED Course. Assessment: Hypokalemia (Primary) Hypomagnesemia Diarrhea, unspecified type C. difficile diarrhea Plan: Discharge Instructions Please take the antibiotics for 10 days. I like for you to see your primary provider in the next few days to make sure your electrolytes are holding strong. If there is any acute change or discharge condition such as abdominal pain, unable to eat or drink, lightheadedness, dizziness or any other acute change please call your primary provider to be seen in clinic if not available return nearest ER. If you do not have a primary provider I gave you the number to [facility] would be happy to see you on close follow-up Bacterial Diarrhea (Adult) Gastroenteritis is an infection in the intestinal tract. It is sometimes called the stomach flu but it is not related to influenza. Although most diarrhea is caused by a virus, you have a bacterial infection. It causes diarrhea. Diarrhea is the passing of loose watery stools 3 or more times a day. Antibiotics are often used to treat this type of infection. Sometimes it is necessary to wait until a stool culture is complete before an antibiotic can be chosen. This may take about 2 days. Certain types of gastroenteritis should not be treated with antibiotics. Such treatment can lead to other problems. Because of this, don't take antibiotics until your provider has the results of your stool culture and advises an appropriate antibiotic. Along with diarrhea, you may have these symptoms: Belly (abdominal) pain and cramping Nausea and vomiting Loss of bowel control Fever and chills Bloody stools The main danger of diarrhea is dehydration. Dehydration is the loss of too much water and other fluids from the body without taking in enough fluids to replace it. When this occurs, body fluids must be replaced with oral rehydration solutions. These solutions are available at pharmacies and most grocery stores without a prescription. Home care Medicine If antibiotics were prescribed, be sure you take them as directed until they are finished. Keep taking the antibiotics as prescribed even if your symptoms go away and you feel better. You may use acetaminophen or nonsteroidal anti-inflammatory drugs (NSAIDs) such as ibuprofen to control fever, unless another medicine was prescribed. If you have chronic liver or kidney disease or ever had a stomach ulcer or gastrointestinal bleeding, talk with your healthcare provider before using these medicines. Aspirin should never be used in anyone under 18 years of age who is ill with a fever. It may cause severe liver damage. Don't increase your use of NSAID medicines if you are already taking the medicine for another condition (such as arthritis). Don't use NSAIDs if you are on daily aspirin therapy (such as for heart disease or after stroke). Don't take [id number] anti-diarrheal medicines, unless advised by your healthcare provider. They can make your bacterial diarrhea worse. This is especially true if you have a fever or the diarrhea is bloody. Prevent spread of the illness If symptoms are severe, rest at home for the next 24 hours or until you are feeling better. Wash your hands with soap and water or use alcohol-based computer project manager after touching anyone who is sick, after using the toilet, and before meals. Teach all people in your home when and how to wash their hands. Wet your hands with clean, running water and lather the backs of your hands, between your fingers, and under your nails. Scrub your hands for at least 20 seconds. If you need a timer, try humming the ???Happy Birthday?? song from beginning to end twice. Rinse your hands well and dry them with a clean towel. Clean the toilet after each use. Don't prepare or serve food to others. Diet To prevent dehydration, sip water and clear liquids, soft drinks without caffeine, maribell blayne, mineral water, decaf tea and coffee. Drink small amounts at a time, don't guzzle it. Sports drinks are not a good choice because they have too much sugar and not enough electrolytes. Commercially available oral rehydration solutions are best. If you eat, don't have fatty, greasy, spicy, or fried foods. Don't eat or drink dairy products if you have diarrhea, as they can make diarrhea worse. Caffeine, tobacco, and alcohol can make the diarrhea, cramping, and pain worse. Remember, caffeine is in coffee, chocolate, corrine, some energy drinks, and teas. Try to stop using these substances until you have recovered. Don't force yourself to eat, especially if having cramping, vomiting, or diarrhea. Don't eat large amounts at a time, even if you are hungry During the first 24 hours (the first full day), follow the diet below: Beverages: Water, clear liquids, soft drinks without caffeine; maribell blayne, mineral water (plain or flavored), decaffeinated tea and coffee. Avoid sports drinks. Soups: Clear broth, consomm?? and bouillon Desserts: Plain gelatin, ice pops, and fruit juice bars. During the next 24 hours (the second day) you may add these to the diet above if you have improved: Hot cereal, plain toast, bread, rolls, crackers Plain noodles, rice, mashed potatoes, chicken noodle or rice soup Unsweetened canned fruit like applesauce and bananas (stay away from pineapple and citrus) Limit fat intake to less than 15 grams per day by skip margarine, butter, oils, mayonnaise, sauces, gravies, fried foods, peanut butter, meat, poultry and fish. Limit dairy. Limit fiber; don't eat raw or cooked vegetables, fresh fruits (except bananas) and bran cereals. Limit caffeine and chocolate. No spices or seasonings except salt. During the next 24 hours: Slowly go back to a normal diet, as you feel better and your symptoms lessen. If at any time your symptoms get worse, go back to clear liquids until you feel better. Follow-up care Follow up with your healthcare provider as advised. Call if you are not improving within 24 hours or if the diarrhea lasts more than 1 week on antibiotics. If a stool (diarrhea) sample was taken, you may call in 2 days (or as directed) for the results. When to get medical advice Call your healthcare provider right away if any of the following occur: Increasing belly pain or constant lower right belly pain Continued vomiting (unable to keep liquids down) Frequent diarrhea (more than 5 times a day) Blood in vomit or stool (black or red color) Reduced oral intake Dark urine, reduced urine output Weakness, dizziness Drowsiness Fever of 100.4??F (38??C) or higher, or as directed by your healthcare provider New rash Symptoms get worse or you have new symptoms High-risk groups Some people are more prone to risks from diarrhea, like dehydration. These people include the very elderly, those with weak immune systems (for cancer treatment, for example), or those who have inflammatory bowel disease (Crohn's or colitis). If you are in one of these groups, see your healthcare provider right away if your diarrhea symptoms get worse or don't improve with treatment. Call 911 Call 911 if any of the following occur: Trouble breathing Confused Severe drowsiness or trouble awakening Fainting or loss of consciousness Rapid heart rate Seizure Stiff neck Tia last reviewed this educational content on 07/16/2020 ?? [id number] [employer]. All rights reserved. This information is not intended as a substitute for professional medical care. Always follow your healthcare professional's instructions. ExitCare Instructions Diarrhea, Bacterial (Adult) (Egyptian) Discharge Prescriptions Medication Sig Dispense Start Date End Date Auth. Provider vancomycin (Vancocin) 125 MG capsule Take 1 Capsule by mouth four times a day for 10 days. Indications: Infection 40 Capsule 01/13/2024 01/23/2024 Jose Smith DO Disposition: ED Disposition ED Disposition Discharge Condition [...] review with your primary doctor. Discharge Instructions Please take the antibiotics for 10 days. I like for you to see your primary provider in the next few days to make sure your electrolytes are holding strong. If there is any acute change or discharge condition such as abdominal pain, unable to eat or drink, lightheadedness, dizziness or any other acute change please call your primary provider to be seen in clinic if not available return nearest ER. If you do not have a primary provider I gave you the number to [facility] would be happy to see you on close follow-up Bacterial Diarrhea (Adult) Gastroenteritis is an infection in the intestinal tract. It is sometimes called the stomach flu but it is not related to influenza. Although most diarrhea is caused by a virus, you have a bacterial infection. It causes diarrhea. Diarrhea is the passing of loose watery stools 3 or more times a day. Antibiotics are often used to treat this type of infection. Sometimes it is necessary to wait until a stool culture is complete before an antibiotic can be chosen. This may take about 2 days. Certain types of gastroenteritis should not be treated with antibiotics. Such treatment can lead to other problems. Because of this, don't take antibiotics until your provider has the results of your stool culture and advises an appropriate antibiotic. Along with diarrhea, you may have these symptoms: Belly (abdominal) pain and cramping Nausea and vomiting Loss of bowel control Fever and chills Bloody stools The main danger of diarrhea is dehydration. Dehydration is the loss of too much water and other fluids from the body without taking in enough fluids to replace it. When this occurs, body fluids must be replaced with oral rehydration solutions. These solutions are available at pharmacies and most grocery stores without a prescription. Home care Medicine If antibiotics were prescribed, be sure you take them as directed until they are finished. Keep taking the antibiotics as prescribed even if your symptoms go away and you feel better. You may use acetaminophen or nonsteroidal anti-inflammatory drugs (NSAIDs) such as ibuprofen to control fever, unless another medicine was prescribed. If you have chronic liver or kidney disease or ever had a stomach ulcer or gastrointestinal bleeding, talk with your healthcare provider before using these medicines. Aspirin should never be used in anyone under 18 years of age who is ill with a fever. It may cause severe liver damage. Don't increase your use of NSAID medicines if you are already taking the medicine for another condition (such as arthritis). Don't use NSAIDs if you are on daily aspirin therapy (such as for heart disease or after stroke). Don't take [id number] anti-diarrheal medicines, unless advised by your healthcare provider. They can make your bacterial diarrhea worse. This is especially true if you have a fever or the diarrhea is bloody. Prevent spread of the illness If symptoms are severe, rest at home for the next 24 hours or until you are feeling better. Wash your hands with soap and water or use alcohol-based computer project manager after touching anyone who is sick, after using the toilet, and before meals. Teach all people in your home when and how to wash their hands. Wet your hands with clean, running water and lather the backs of your hands, between your fingers, and under your nails. Scrub your hands for at least 20 seconds. If you need a timer, try humming the ???Happy Birthday?? song from beginning to end twice. Rinse your hands well and dry them with a clean towel. Clean the toilet after each use. Don't prepare or serve food to others. Diet To prevent dehydration, sip water and clear liquids, soft drinks without caffeine, maribell blayne, mineral water, decaf tea and coffee. Drink small amounts at a time, don't guzzle it. Sports drinks are not a good choice because they have too much sugar and not enough electrolytes. Commercially available oral rehydration solutions are best. If you eat, don't have fatty, greasy, spicy, or fried foods. Don't eat or drink dairy products if you have diarrhea, as they can make diarrhea worse. Caffeine, tobacco, and alcohol can make the diarrhea, cramping, and pain worse. Remember, caffeine is in coffee, chocolate, corrine, some energy drinks, and teas. Try to stop using these substances until you have recovered. Don't force yourself to eat, especially if having cramping, vomiting, or diarrhea. Don't eat large amounts at a time, even if you are hungry During the first 24 hours (the first full day), follow the diet below: Beverages: Water, clear liquids, soft drinks without caffeine; maribell blayne, mineral water (plain or flavored), decaffeinated tea and coffee. Avoid sports drinks. Soups: Clear broth, consomm?? and bouillon Desserts: Plain gelatin, ice pops, and fruit juice bars. During the next 24 hours (the second day) you may add these to the diet above if you have improved: Hot cereal, plain toast, bread, rolls, crackers Plain noodles, rice, mashed potatoes, chicken noodle or rice soup Unsweetened canned fruit like applesauce and bananas (stay away from pineapple and citrus) Limit fat intake to less than 15 grams per day by skip margarine, butter, oils, mayonnaise, sauces, gravies, fried foods, peanut butter, meat, poultry and fish. Limit dairy. Limit fiber; don't eat raw or cooked vegetables, fresh fruits (except bananas) and bran cereals. Limit caffeine and chocolate. No spices or seasonings except salt. During the next 24 hours: Slowly go back to a normal diet, as you feel better and your symptoms lessen. If at any time your symptoms get worse, go back to clear liquids until you feel better. Follow-up care Follow up with your healthcare provider as advised. Call if you are not improving within 24 hours or if the diarrhea lasts more than 1 week on antibiotics. If a stool (diarrhea) sample was taken, you may call in 2 days (or as directed) for the results. When to get medical advice Call your healthcare provider right away if any of the following occur: Increasing belly pain or constant lower right belly pain Continued vomiting (unable to keep liquids down) Frequent diarrhea (more than 5 times a day) Blood in vomit or stool (black or red color) Reduced oral intake Dark urine, reduced urine output Weakness, dizziness Drowsiness Fever of 100.4??F (38??C) or higher, or as directed by your healthcare provider New rash Symptoms get worse or you have new symptoms High-risk groups Some people are more prone to risks from diarrhea, like dehydration. These people include the very elderly, those with weak immune systems (for cancer treatment, for example), or those who have inflammatory bowel disease (Crohn's or colitis). If you are in one of these groups, see your healthcare provider right away if your diarrhea symptoms get worse or don't improve with treatment. Call 911 Call 911 if any of the following occur: Trouble breathing Confused Severe drowsiness or trouble awakening Fainting or loss of consciousness Rapid heart rate Seizure Stiff neck Tia last reviewed this educational content on 07/16/2020 ?? [id number] [employer]. All rights reserved. This information is not intended as a substitute for professional medical care. Always follow your healthcare professional's instructions. ExitCare Instructions Diarrhea, Bacterial (Adult) (Egyptian) Jose Smith DO 01/13/24 386 * Kristine Morrison RN - 01/13/2024 12:45 PM CDT Pt reports she was told to come to the ER due to having low magnesium. documented in this encounter Plan of Treatment Upcoming Encounters Date Type Department Care Team (Late st Contact Info) Description 03/17/2024 2:20 PM CDT Appointment [facility] [address] [place] [address] Megan Herring PA-C [address] [place] [address] documented as of this encounter Procedures Procedure Name Priority Date/Time Associated Diagnosis Comments MAGNESIUM Timed 01/13/2024 6:14 PM CDT POTASSIUM Timed 01/13/2024 6:14 PM CDT HOLD LI HEPARIN STAT 01/13/2024 1:48 PM CDT HOLD NA CITRATE STAT 01/13/2024 1:48 PM CDT HOLD EDTA STAT 01/13/2024 1:48 PM CDT HOLD SERUM TUBE STAT 01/13/2024 1:48 PM CDT BASIC METABOLIC PANEL STAT 01/13/2024 1:48 PM CDT MAGNESIUM STAT 01/13/2024 1:48 PM CDT documented in this encounter Results * MAGNESIUM (01/13/2024 6:14 PM CDT) Magnesium 1.8 1.8 - 2.7 mg/dL 01/13/2024 6:45 PM CDT [facility] Blood BLOOD SPECIMEN / Unknown Venipuncture / Unknown 01/13/2024 6:14 PM CDT 01/13/2024 6:23 PM CDT Jose Smith DO [employer] CHEMISTRY ORDERAB LES Performing Organization Address [facility] Co de Phone Number [facility] [address] [place] [address] * POTASSIUM (01/13/2024 6:14 PM CDT) Potassium 3.8 3.4 - 5.1 mEq/L 01/13/2024 6:45 PM CDT [facility] Blood BLOOD SPECIMEN / Unknown Venipuncture / Unknown 01/13/2024 6:14 PM CDT 01/13/2024 6:23 PM CDT Jose Smith DO [employer] CHEMISTRY ORDERAB LES Performing Organization Address [facility] de Phone Number [facility] [address] [place] [address] * (ABNORMAL) MAGNESIUM (01/13/2024 1:48 PM CDT) Magnesium 1.0(LL) 1.8 - 2.7 mg/dL 01/13/2024 2:45 PM CDT [facility] Blood BLOOD SPECIMEN / Unknown Venipuncture / Unknown 01/13/2024 1:48 PM CDT 01/13/2024 1:59 PM CDT Jose Smith DO [employer] CHEMISTRY ORDERAB LES Performing Organization Address [facility] de Phone Number [facility] [address] [place] [address] * (ABNORMAL) BASIC METABOLIC PANEL (01/13/2024 1:48 PM CDT) Sodium 140 134 - 143 mEq/L 01/13/2024 2:45 PM CDT [facility] Potassium 2.8(LL) 3.4 - 5.1 mEq/L 01/13/2024 2:45 PM CDT [facility] Chloride 94(L) 99 - 110 mEq/L 01/13/2024 2:45 PM CDT [facility] Carbon Dioxide 31(H) 19 - 29 mEq/L 01/13/2024 2:45 PM CDT [facility] Anion Gap 15.0 3.0 - 15.0 mEq/L 01/13/2024 2:45 PM CDT [facility] Blood Urea Nitrogen 13 5 - 24 mg/dL 01/13/2024 2:45 PM CDT [facility] Creatinine 0.72 0.40 - 1.00 mg/dL 01/13/2024 2:45 PM CDT [facility] Glomerular Filtration Rate 92 >60 mL/min/1. 73 m*2 01/13/2024 2:45 PM CDT [facility] Comment:Risk of cardiovascul ar disease increases when GFR is abnormal; persistently reduced GFR values are a specific indication of CKD. This calculation uses CKD- EPI 2020 equation without adjustment for race; it has not been validated in women. Calcium 8.7 8.4 - 10.5 mg/dL 01/13/2024 2:45 PM CDT [facility] Glucose 127(H) 70 - 99 mg/dL 01/13/2024 2:45 PM CDT [facility] Blood BLOOD SPECIMEN / Unknown Venipuncture / Unknown 01/13/2024 1:48 PM CDT 01/13/2024 1:59 PM CDT Narrative [facility] - 01/13/2024 2:45 PM CDT Current ADA criteria for Glucose: ?Normal: 70-99 mg/dL ?Impaired Fasting Glucose: 100-125 mg/dL ?Diabetes Mellitus: at or above 126 mg/dL The diagnosis of diabetes must be confirmed on a subsequent day by measuring Fasting Plasma Glucose, 2-hr PG or random plasma glucose (if symptoms are present). Jose Smith DO EC CHEMISTRY ORDERAB LES [facility] [address] [place] [address], [place] * HOLD SERUM TUBE (01/13/2024 1:48 PM CDT) Blood BLOOD SPECIMEN / Unknown Venipuncture / Unknown 01/13/2024 1:48 PM CDT 01/13/2024 1:59 PM CDT Jose Smith DO EC CHEMISTRY ORDERAB LES Performing Organization Address [facility] de Phone Number [facility] [address] [place] [address] * HOLD NA CITRATE (01/13/2024 1:48 PM CDT) Blood BLOOD SPECIMEN / Unknown Venipuncture / Unknown 01/13/2024 1:48 PM CDT 01/13/2024 1:59 PM CDT Jose Smith DO EC HEMATOLOGY ORDERA BLES Performing Organization Address [facility] de Phone Number [facility] [address] [place] [address] * HOLD PURPLE TUBE (01/13/2024 1:48 PM CDT) Blood BLOOD SPECIMEN / Unknown Venipuncture / Unknown 01/13/2024 1:48 PM CDT 01/13/2024 1:59 PM CDT Jose Smith DO EC HEMATOLOGY ORDERA BLES Performing Organization Address [facility] de Phone Number [facility] [address] [place] [address] * HOLD LI HEPARIN (01/13/2024 1:48 PM CDT) Blood BLOOD SPECIMEN / Unknown Venipuncture / Unknown 01/13/2024 1:48 PM CDT 01/13/2024 1:59 PM CDT Jose Smith DO EC CHEMISTRY ORDERAB LES Performing Organization Address [facility] Co de Phone Number [facility] [address] [place] [address] documented in this encounter Visit Diagnoses Diagnosis Hypokalemia- Primary Hypopotassemia Hypomagnesemia Disorders of magnesium metabolism Diarrhea, unspecified type C. difficile diarrhea Intestinal infection due to clostridium difficile documented in this encounter Administered Medications Inactive Administered Medications Medication Order MAR Action Action Date Dose Rate Site magnesium oxide tablet 400 mg 400 mg, Oral, ONCE, 1 dose, On Thu01/13/24 at 1530 Given 01/13/2024 4:20 PM CDT 400 mg magnesium sulfate 2 g in 50 mL water for infusion (pre-mix) 2 g, Intravenous, at 25 mL/hr, ONCE, 1 dose, On Thu01/13/24 at 1400 New Bag 01/13/2024 1:57 PM CDT 2 g 25 mL/hr potassium chloride (Klor-Con) packet 40 mEq 40 mEq, Oral, ONCE, 1 dose, On Thu01/13/24 at 1630 Given 01/13/2024 4:19 PM CDT 40 mEq potassium chloride 10 mEq/100 mL infusion 10 mEq 10 mEq, Intravenous, at 100 mL/hr, EVERY HOUR, 3 doses, First dose on Thu01/13/24 at 1400, Last dose on Thu01/13/24 at 1600 New Bag 01/13/2024 4:03 PM CDT 10 mEq 100 mL/hr New Bag by Other 01/13/2024 3:01 PM CDT 10 mEq 100 mL/ hr New Bag 01/13/2024 1:57 PM CDT 10 mEq 100 mL/hr sodium chloride 0.9% (NS) infusion 1,000 mL 1,000 mL, Intravenous, at 1,000 mL/hr, ONCE, 1 dose, On Thu01/13/24 at 1500 New Bag by Other 01/13/2024 3:01 PM CDT 1,000 mL 1000 mL/hr vancomycin (Vancocin) capsule 125 mg 125 mg, Oral, ONCE, 1 dose, On Thu01/13/24 at 1700, Indication? suspected infection, Antibiotic Indication for Use: Other (Add Comment), Other Indication(s): c diff Given 01/13/2024 5:19 PM CDT 125 mg documented in this encounter Discontinued Medications Medication Sig Discontinue Reason Start Date End Da te vancomycin (Vancocin) 125 MG capsuleIndications:Infe ction Take 1 Capsule by mouth four times a day for 10 days. Indications: Infection 01/13/2024 01/13/2024 vancomycin (Vancocin) 125 MG capsuleIndications:Infe ction Take 1 Capsule by mouth four times a day for 10 days. Indications: Infection 01/13/2024 01/13/2024 vancomycin (Vancocin) 125 MG capsuleIndications:Infe ction Take 1 Capsule by mouth four times a day for 10 days. Indications: Infection 01/13/2024 01/13/2024 documented as of this encounter Active and Recently Administered Medications Times are shown in CDT. Scheduled Medication Order 01/11/2024 01/12/2024 01/13/2024 magnesium oxide tablet 400 mg (COMPLETED) 400 mg, Oral, ONCE, 1 dose, On Thu01/13/24 at 1530 1620 (Given - Provid er: Hiral Robert RN) magnesium sulfate 2 g in 50 mL water for infusion (pre-mix) (COMPLETED) 2 g, Intravenous, at 25 mL/hr, ONCE, 1 dose, On Thu01/13/24 at 1400 1357 (New Bag - Prov ider: Jesus Madrigal RN)1457 (Stopped - Provider: Jesus Madrigal RN) potassium chloride (Klor-Con) packet 40 mEq (COMPLETED) 40 mEq, Oral, ONCE, 1 dose, On Thu01/13/24 at 1630 1619 (Given - Provid er: Hiral Robert RN) potassium chloride 10 mEq/100 mL infusion 10 mEq (COMPLETED) 10 mEq, Intravenous, at 100 mL/hr, EVERY HOUR, 3 doses, First dose on Thu01/13/24 at 1400, Last dose on Thu01/13/24 at 1600 1357 (New Bag - Prov ider: Jesus Madrigal RN)1457 (Stopped - Provider: Jesus Madrigal RN)1501 (New Bag by Other - Provider: Jesus Madrigal RN)1602 (Stopped - Provider: Hiral Robert, JAMARI)1603 (New Bag - Provider: Hiral Robert, JAMARI)1704 (Stopped - Provider: Hiral Robert RN) sodium chloride 0.9% (NS) infusion 1,000 mL (COMPLETED) 1,000 mL, Intravenous, at 1,000 mL/hr, ONCE, 1 dose, On Thu01/13/24 at 1500 1501 (New Bag by Ot er - Provider: Jesus Madrigal RN)1848 (Stopped - Provider: Hiral Robert RN) vancomycin (Vancocin) capsule 125 mg (COMPLETED) 125 mg, Oral, ONCE, 1 dose, On Thu01/13/24 at 1700, Indication? suspected infection, Antibiotic Indication for Use: Other (Add Comment), Other Indication(s): c diff 1719 (Given - Provid er: Hiral Robert RN) documented in this encounter Orders Medications Ordered That Chad ht Not Have Been Administered Count Last Ordered Date First Ordered Date magnesium oxide tablet 400 mg 1 01/13/2024 potassium chloride CR (K-Dur , Klor-Con M) tablet 40 mEq 1 01/13/2024 Nursing Count Last Ordered Date First Orde red Date IV TEAM PLACE PERIPHERAL IV 1 01/13/2024 documented in this encounter Additional Health Concerns Infection Onset Date Last Indicated Resolved Time R/O Enteric Pathogens 01/12/2024 01/13/20242023 3:35 PM CDT R/O C. Diff 01/12/2024 01/13/2024 01/13/2024 3:26 PM CDT C difficile 01/13/2024 01/13/2024 03/02/2024 8:01 AM CDT History of C difficile 01/13/2024 01/13/2024 documented as of this encounter Care Teams Custom Shop Worker Relationship Specialty Start Date End Date Karla Madera, RN Kindergartners Helper 12/13/22 documented as of this encounter
--- OUTSIDE RECORDS SUMMARY | 2024-03-10 13:26 | XMS_ITS | Encounter Summary ---
Author Organization [facility] Address [address] [place] [address] Phone Care Team Providers Care Tow Truck Operator Name Role Phone Karla Madera RN Unavailable [phone] Reason for Visit * Reason Onset Date Comments Urgent Care Follow Up 01/13/2024 Encounter Details Date Type Department Care Team (Late st Contact Info) Description 01/13/2024 Telephone [facility] [address] [place] [address] Irlanda Desai RN Urgent Care Follow Up Social History Tobacco Use Types Packs/Day Years [...] encounter Miscellaneous Notes * Telephone Encounter - Irlanda Desai RN - 01/13/2024 10:24 AM CDT Pt returned call and she was instructed to go to the ER based on her labs for electrolyte replacement. Pt agreed and stated she would go to the ER. documented in this encounter Plan of Treatment Upcoming Encounters Date Type Department Care Team (Late st Contact Info) Description 03/17/2024 2:20 PM CDT Appointment [facility] [address] [place] [address] Megan Herring PA-C [address] [place] [address] documented as of this encounter Visit Diagnoses Not on filedocumented in this encounter Additional Health Concerns Infection Onset Date Last Indicated Resolved Time R/O Enteric Pathogens 01/12/2024 01/13/20242023 3:35 PM CDT R/O C. Diff 01/12/2024 01/13/2024 01/13/2024 3:26 PM CDT C difficile 01/13/2024 01/13/2024 03/02/2024 8:01 AM CDT History of C difficile 01/13/2024 01/13/2024 documented as of this encounter Care Teams Tow Truck Operator Relationship Specialty Start Date End Date Karla Madera RN Warehouse Team Member 12/13/22 documented as of this encounter
--- OUTSIDE RECORDS SUMMARY | 2024-03-10 13:26 | XMS_ITS | Encounter Summary ---
Author Organization [facility] Address [address] [place] [address] Phone Care Team Providers Care Audit Analyst Name Role Phone Karla Madera RN Unavailable [phone] Encounter Details Date Type Department Care Team (Late st Contact Info) Description 01/13/2024 Orders Only [facility] [address] [place], [place] [address] Cass Wheatley PA-C [address] [place] [address] Social History Tobacco Use Types Packs/Day Years [...] on file documented as of this encounter Ordered Prescriptions Prescription Sig Dispensed Refills Start Date End Da te vancomycin (Vancocin) 125 MG capsuleIndications:Infe ction Take 1 Capsule by mouth four times a day for 10 days. Indications: Infection 40 Capsule 01/13/2024 01/13/2024 documented in this encounter Plan of Treatment Upcoming Encounters Date Type Department Care Team (Late st Contact Info) Description 03/17/2024 2:20 PM CDT Appointment [facility] [address] [place] [address] Megan Herring PA-C [address] [place] [address] documented as of this encounter Visit Diagnoses Not on filedocumented in this encounter Discontinued Medications Medication Sig Discontinue Reason Start Date End Da te albuterol (Proventil, Ventolin) (2.5 MG/3ML) 0.083% nebulizer solution Take 3 mL by nebulization every four hours as needed for Shortness of Breath. Course of treatment completed 04/16/2021 01/13/2024 documented as of this encounter Additional Health Concerns Infection Onset Date Last Indicated Resolved Time R/O Enteric Pathogens 01/12/2024 01/13/20242023 3:35 PM CDT R/O C. Diff 01/12/2024 01/13/2024 01/13/2024 3:26 PM CDT C difficile 01/13/2024 01/13/2024 03/02/2024 8:01 AM CDT History of C difficile 01/13/2024 01/13/2024 documented as of this encounter Care Teams Audit Analyst Relationship Specialty Start Date End Date Karla Madera, RN Nurse Recruiter 12/13/22 documented as of this encounter
--- OUTSIDE RECORDS SUMMARY | 2024-03-10 13:26 | XMS_ITS | Encounter Summary ---
Author Organization [facility] Address [address] [place] [address] Phone Care Team Providers Care Santa'S Helper Name Role Phone Karla Madera RN Unavailable [phone] Reason for Visit * Reason Onset Date Comments Transitional Care 01/14/2024 Encounter Details Date Type Department Care Team (Late st Contact Info) Description 01/14/2024 Patient Outreach [facility] [address] [place], [place] [id number] Karla Madera RN Transitional Care Social History Tobacco Use Types Packs/Day [...] things needed for daily living? No 08/28/2022 IP Custom IPV Answer Date Recorded Do [...] on file documented as of this encounter Progress Notes * Karla Madera RN - 01/14/2024 1:12 PM CDT Attempted [facility] call after Yas was seen in ED 01/13/24, voice message left requesting return call. * Karla Madera RN - 01/14/2024 1:12 PM CDT Attempted second [facility] outreach call and left voice message requesting return call. MyChart message sent offering CM services. Patient was discharged from [facility] on 01/13/24. No post- discharge call was completed because patient was unable to be reached. Calls were attempted on 01/14/24 and 01/15/24 . documented in this encounter Plan of Treatment Upcoming Encounters Date Type Department Care Team (Late st Contact Info) Description 03/17/2024 2:20 PM CDT Appointment [facility] [address] [place] [address] Megan Herring PA-C [address] [place] [address] documented as of this encounter Visit Diagnoses Not on filedocumented in this encounter Additional Health Concerns Infection Onset Date Last Indicated Resolved Time C difficile 01/13/2024 01/13/202403/0203/02/2024 8:01 AM CDT History of C difficile 01/13/2024 01/13/2024 documented as of this encounter Care Teams Santa'S Helper Relationship Specialty Start Date End Date Karla Madera, RN Litigation Paralegal 12/13/22 documented as of this encounter
--- OUTSIDE RECORDS SUMMARY | 2024-03-10 13:26 | XMS_ITS | Encounter Summary ---
Author Organization [facility] Address [address] [address] Phone Care Team Providers Care Hand Candy Dipper Name Role Phone Karla Madera RN Unavailable [phone] Encounter Details Date Type Department Care Team (Late st Contact Info) Description 01/13/2024 Telephone [facility] [address] [place] [address] Jay Riggs, ASSOCIATE TEAM PHYSICIAN, MECHANICAL PRODUCT DESIGN ENGINEER [address] [place] [address] Social History Tobacco Use Types Packs/Day Years [...] encounter Miscellaneous Notes * Telephone Encounter - Jay Riggs APRN, CNP - 01/13/2024 8:39 AM CDT I attempted to call patient to discuss results from yesterday's visit. Left message to return call.On chart review it appears patient was contacted last evening about critical magnesium. I wanted todiscuss options and recommendations with patient. Recommend at this time to present to the emergency department for further evaluation and management. Jay Riggs APRN, JESSICA-C documented in this encounter Plan of Treatment Upcoming Encounters Date Type Department Care Team (Late st Contact Info) Description 03/17/2024 2:20 PM CDT Appointment [facility] [address] [place], [place] [phone] Megan Herring PA-C [address] [place] [phone] documented as of this encounter Visit Diagnoses Not on filedocumented in this encounter Additional Health Concerns Infection Onset Date Last Indicated Resolved Time R/O Enteric Pathogens 01/12/2024 01/13/20242023 3:35 PM CDT R/O C. Diff 01/12/2024 01/13/2024 01/13/2024 3:26 PM CDT documented as of this encounter Care Teams Hand Candy Dipper Relationship Specialty Start Date End Date Karla Madera RN Commercial Energy Auditor 12/13/22 documented as of this encounter
--- OUTSIDE RECORDS SUMMARY | 2024-03-10 13:26 | XMS_ITS | Encounter Summary ---
Author Organization [facility] Address [address] [place] [address] Phone Care Team Providers Care Group Reservations Coordinator Name Role Phone Kyle Swann MD Primary Care Provider [phone] Karla Madera RN Unavailable [phone] Encounter Details Date Type Department Care Team (Latest Contact Info) Description 01/12/2024 Travel Social History Tobacco Use Types Packs/Day [...] on file documented as of this encounter Plan of Treatment Upcoming Encounters Date Type Department Care Team (Late st Contact Info) Description 03/17/2024 2:20 PM CDT Appointment [facility] [address] [place] [address] Megan Herring PA-C [address] [place] [address] documented as of this encounter Visit Diagnoses Not on filedocumented in this encounter Additional Health Concerns Infection Onset Date Last Indicated Resolved Time R/O Enteric Pathogens 01/12/2024 01/13/20242023 3:35 PM CDT R/O C. Diff 01/12/2024 01/13/2024 01/13/2024 3:26 PM CDT documented as of this encounter Care Teams Group Reservations Coordinator Relationship Specialty Start Date End Date Kyle Swann MD [address] [place] [address] PCP - General Family Medicine 04/16/21 01/12/24 Karla Madera, RN Washery Boss 12/13/22 documented as of this encounter
--- OUTSIDE RECORDS SUMMARY | 2024-03-10 13:26 | XMS_ITS | Encounter Summary ---
Author Organization [facility] Address [address] [address] Phone Care Team Providers Care Air Tucker Name Role Phone Karla Madera RN Unavailable [phone] Reason for Visit * Reason Comments Diarrhea Several times a day Encounter Details Date Type Department Care Team (Late st Contact Info) Description 01/30/2024 3:13 PM CDT - 01/30/2024 7:41 PM CDT Emergency [facility] EMERGENCY DEPARTMENT [address] [place] [id number] Era Vang MD [address] [place] [id number] C. difficile colitis (Primary Dx); Hypokalemia; Hypomagnesemia Discharge Disposition: Home and/or Self Care Social [...] Sign Reading Time Taken Comments Blood Pressure 128/79 01/30/2024 4:04 PM CDT Pulse 88 01/30/2024 4:04 PM CDT Temperature 36.6 ??C (97.8 ??F) 01/30/2024 1:26 PM CD T Respiratory Rate 16 01/30/2024 4:04 PM CDT Oxygen Saturation 93% 01/30/2024 4:04 PM CDT Inhaled Oxygen Concentration - - Weight 57.6 kg (127 lb) 01/30/2024 1:26 PM CDT Height 162.6 cm (5' 4) 01/30/2024 1:26 PM CDT Body Mass Index 21.8 01/30/2024 1:26 PM CDT documented in this encounter Functional Status Functional Status Response Date of Assess ment Patient's Vision Adequate to Safely Complete Daily Activities Yes 01/30/2024 Patient's Memory Adequate to Safely Complete Daily Activities Yes 01/30/2024 Cognitive Status Response Date of Assessm ent Patient's Judgment Adequate to Safely Complete Daily Activities Yes 01/30/2024 documented as of this encounter Discharge Instructions * Discharge Instructions* Era Vang MD - 01/30/2024 3:38 PM CDT We are starting a new medication called for Fidaxomicin. If for some reason it is too expensive foryou, please call the ER back and asked to speak with the emergency department pharmacist. We will try to help figure out if there is an alternative, or come up with an alternative plan. However this is the best medication if you are able to get it. While you are still having frequent diarrhea, I recommend taking a magnesium and a potassium supplement. Try to eat foods that are rich in potassium if you are able to. If your symptoms are not improving after 3 to 4 days on the new medication, please call your primary care doctor. If anything is getting worse despite the new medication, please return to the ER. documented in this encounter Medications at Time [...] 1 tablet once daily 100 3 09/13/2007 fidaxomicin (Dificid) 200 MG tabletIndications:Infec tion Take 1 Tablet by mouth two times a day for 10 days. Indications: Infection 20 Tablet 01/30/2024 02/11/2024 documented as of this encounter Ordered Prescriptions Prescription Sig Dispensed Refills Start Date End Da te fidaxomicin (Dificid) 200 MG tabletIndications:Infec tion Take 1 Tablet by mouth two times a day for 10 days. Indications: Infection 20 Tablet 01/30/2024 02/11/2024 documented in this encounter Discharge Disposition Disposition Code Departure Means Destination Home and/or Self Nursing Home documented in this encounter ED Notes * rEa Vang MD - 01/30/2024 3:20 PM CDT Images from the original note were not included. Patient: Yas Rivera Means of Arrival: Car Chief Complaint: Diarrhea (Several times a day ) History of Present Illness: HPI 64 yo F with recent dx of c. Diff who has completed a full course of PO vancomycin presents becauseshe has essentially had no improvement whatsoever with the antibiotics. She is still having significant diarrhea. Minimal abdominal pain, no vomiting but + nausea. No fevers or chills. Review of Systems Gastrointestinal: Positive for diarrhea and nausea. Negative for blood in stool. Allergies Allergen Reactions Benzoyl Peroxide RASH allergic contact dermatitis allergic contact dermatitis allergic contact dermatitis Benzoyl Peroxide allergic contact dermatitis Environmental Some metals Latex Pruritis Prior to Admission Medication List Med List Status: ED Triage Only Set By: Kelly Lunsford RN at 01/30/2024 1:28 PM albuterol HFA (Proair HFA, Ventolin HFA) [...] Take 1 Tablet by mouth every morning. Past Medical History: Past Medical History: Diagnosis [...] groin lymph node with benign results COLONOSCOPY,REMV JENY,SNARE 05/12/2007 COLPOSCOPY,BX CERVIX/ENDOCERV CURR 09/12/2002 benign endocervical [...] - unknown maternal/paternal Neuro Disease Maternal Grandfather [place] - in 70's Cardiovascular Disease Paternal Grandmother [...] Vitals Most Recent Vitals Temp: 36.6 ??C (97.8 ??F) (01/30/24 1326) Temp: 36.6 ??C (97.8 ??F) (01/30/24 1326) Pulse: 99 (01/30/24 1326) Pulse: 88 (01/30/24 1604) Resp: 16 (01/30/24 1326) Resp: 16 (01/30/24 1604) BP: (!) 155/81 (01/30/24 1326) BP: 128/79 (01/30/24 1604) SpO2: 98 % (01/30/24 1326) SpO2: 93 % (01/30/24 1604) Weight: 57.6 kg (127 lb) (01/30/24 1326) Physical Exam: Physical Exam Vitals and nursing note reviewed. HENT: Head: Normocephalic and atraumatic. Right Ear: External ear normal. Left Ear: External ear normal. Nose: Nose normal. Cardiovascular: Rate and Rhythm: Normal rate and regular rhythm. Pulses: Normal pulses. Pulmonary: Effort: Pulmonary effort is normal. Breath sounds: Normal breath sounds. Abdominal: General: Abdomen is flat. There is no distension. Tenderness: There is no abdominal tenderness. Musculoskeletal: General: No tenderness. Cervical back: Neck supple. Skin: General: Skin is warm and dry. Capillary Refill: Capillary refill takes less than 2 seconds. Nails: There is no clubbing. Neurological: Mental Status: She is alert and oriented to person, place, and time. Sensory: No sensory deficit. Psychiatric: Behavior: Behavior normal. Lab Results: Results for orders placed or performed during the hospital encounter of 01/30/24 COMPREHENSIVE METABOLIC PANEL Collection Time: 01/30/24 3:35 PM Result Value Ref Range Sodium 143 134 - 143 mEq/L Potassium 2.6 (LL) 3.4 - 5.1 mEq/L Chloride 93 (L) 99 - 110 mEq/L Carbon Dioxide 34 (H) 19 - 29 mEq/L Anion Gap 16.0 (H) 3.0 - 15.0 mEq/L Blood Urea Nitrogen 15 5 - 24 mg/dL Creatinine 0.66 0.40 - 1.00 mg/dL Glomerular Filtration Rate 97 >60 mL/min/1.73 m*2 Calcium 9.3 8.4 - 10.5 mg/dL Glucose 130 (H) 70 - 99 mg/dL Protein, Total 7.0 6.0 - 8.0 g/dL Albumin 3.4 (L) 3.5 - 5.0 g/dL Alkaline Phosphatase 248 (H) 40 - 150 IU/L Aspartate Aminotransferase 106 (H) 10 - 40 IU/L Alanine Aminotransferase 54 (H) 6 - 31 IU/L Bilirubin, Total 0.9 0.2 - 1.2 mg/dL HEMOGRAM/DIFFERENTIAL Collection Time: 01/30/24 3:35 PM Result Value Ref Range WBC 8.6 3.2 - 11.0 10*9/L RBC 3.90 3.77 - 5.24 10*12/L HGB 14.8 11.2 - 15.5 g/dL HCT 43.8 34.3 - 46.0 % MCV 112.3 (H) 81.4 - 99.0 fL MCH 37.9 (H) 26.7 - 33.1 pg MCHC 33.8 31.6 - 35.5 g/dL RDW 14.5 11.3 - 14.6 % PLT 233 130 - 375 10*9/L Neutrophils % 77.2 % Lymphocytes % 15.7 % Monocytes % 5.7 % Eosinophils % 0.7 % Basophils % 0.5 % Immature Granulocytes % 0.2 % Neutrophils Absolute 6.6 1.5 - 7.6 10*9/L Lymphocytes Absolute 1.3 0.8 - 3.3 10*9/L Monocytes Absolute 0.5 0.2 - 0.9 10*9/L Eosinophils Absolute 0.1 0.0 - 0.4 10*9/L Basophils Absolute 0.0 0.0 - 0.1 10*9/L Immature Granulocytes Absolute 0.02 0.00 - 0.06 10*9/L MAGNESIUM Collection Time: 01/30/24 3:35 PM Result Value Ref Range Magnesium 1.3 (L) 1.8 - 2.7 mg/dL Imaging Results: Imaging Results None Emergency Department Course: Medications potassium chloride (Klor-Con) packet 80 mEq (80 mEq Oral Given 01/30/241650) magnesium sulfate in water infusion 4 g (0 g Intravenous Stopped 01/30/241927) Procedures: Procedures Medical Decision Making 64 yo F here with C. Diff which has not responded to treatment of a full course of PO vancomycin. Discussed with ED pharmacist who supports changing to fidaxomicin. Electrolytes consistent with severe diarrhea, repleted magnesium and potassium and recommended ongoing supplementation until diarrhea is resolved. Assessment: C. difficile colitis (Primary) Hypokalemia Hypomagnesemia Plan: Discharge Prescriptions Medication Sig Dispense Start Date End Date Auth. Provider fidaxomicin (Dificid) 200 MG tablet Take 1 Tablet by mouth two times a day for 10 days. Indications: Infection 20 Tablet 01/30/2024 02/11/2024 Era Vang MD Disposition: ED Disposition ED Disposition Discharge [...] review with your primary doctor. Discharge Instructions We are starting a new medication called for Fidaxomicin. If for some reason it is too expensive for you, please call the ER back and asked to speak with the emergency department pharmacist. We will try to help figure out if there is an alternative, or come up with an alternative plan. However this is the best medication if you are able to get it. While you are still having frequent diarrhea, I recommend taking a magnesium and a potassium supplement. Try to eat foods that are rich in potassium if you are able to. If your symptoms are not improving after 3 to 4 days on the new medication, please call your primary care doctor. If anything is getting worse despite the new medication, please return to the ER. ExitCare Instructions None Era Vang MD 02/03/24 1539 * Kelly Lunsford RN - 01/30/2024 1:24 PM CDT Pt presents with persistent diarrhea that she was seen with two weeks ago. She says she is unable to eat or drink much because she is nauseated and gaggy all the time. Denies pain. Denies recent fevers documented in this encounter Plan of Treatment Upcoming Encounters Date Type Department Care Team (Late st Contact Info) Description 03/17/2024 2:20 PM CDT Appointment [facility] [address] [place] [address] Megan Herring PA-C [address] [place] [address] documented as of this encounter Procedures Procedure Name Priority Date/Time Associated Diagnosis Comments EKG 12-LEAD STAT 01/30/2024 4:39 PM CDT HOLD LI HEPARIN STAT 01/30/2024 3:35 PM CDT HOLD NA CITRATE STAT 01/30/2024 3:35 PM CDT HOLD EDTA STAT 01/30/2024 3:35 PM CDT HOLD SERUM TUBE STAT 01/30/2024 3:35 PM CDT COMPREHENSIVE METABOLIC PANEL STAT 01/30/2024 3:35 PM CDT HEMOGRAM/DIFF STAT 01/30/2024 3:35 PM CDT MAGNESIUM STAT Add-On 01/30/2024 3:35 PM CDT documented in this encounter Results * EKG 12-LEAD (01/30/2024 4:39 PM CDT) Pathologist [facility] [place] Ventricular Rate 87 BPM MUSE Atrial Rate 87 BPM MUSE P-R Interval 160 ms MUSE QRS Duration 92 ms MUSE QT 424 ms MUSE QTc 510 ms MUSE P [place] 83 degrees MUSE R [place] 75 degrees MUSE T [place] 79 degrees MUSE 01/30/2024 4:39 PM CDT Narrative MUSE - 02/01/2024 10:02 AM CDT Confirming Doc Amrita Shields Normal sinus rhythm Nonspecific ST abnormality Prolonged QT Abnormal ECG When compared with ECG of 28-Aug-2016 20:32, No significant change was found Procedure Note de Amrita James MD - 02/01/2024 Confirming Doc Amrita Shields Normal sinus rhythm Nonspecific ST abnormality Prolonged QT Abnormal ECG When compared with ECG of 28-Aug-2016 20:32, No significant change was found Era Vang MD IP ECG ORDERABLES MUSE * (ABNORMAL) MAGNESIUM (01/30/2024 3:35 PM CDT) [facility] Magnesium 1.3(L) 1.8 - 2.7 mg/dL 01/30/2024 4:49 PM CDT [facility] Blood BLOOD SPECIMEN / Unknown Venipuncture / Unknown 01/30/2024 3:35 PM CDT 01/30/2024 3:43 PM CDT Era Vang MD EC CHEMISTRY ORDER NICKY [facility] [address] [place] [address] * (ABNORMAL) COMPREHENSIVE METABOLIC PANEL (01/30/2024 3:35 PM CDT) Pathologist [facility] [place] Sodium 143 134 - 143 mEq/L 01/30/2024 4:26 PM CDT [facility] Potassium 2.6(LL) 3.4 - 5.1 mEq/L 01/30/2024 4:26 PM [facility] Chloride 93(L) 99 - 110 mEq/L 01/30/2024 4:26 PM [facility] Carbon Dioxide 34(H) 19 - 29 mEq/L 01/30/2024 4:26 PM [facility] Anion Gap 16.0(H) 3.0 - 15.0 mEq/L 01/30/2024 4:26 PM [facility] Blood Urea Nitrogen 15 5 - 24 mg/dL 01/30/2024 4:26 PM [facility] Creatinine 0.66 0.40 - 1.00 mg/dL 01/30/2024 4:26 PM [facility] Glomerular Filtration Rate 97 >60 mL/min/1. 73 m*2 01/30/2024 4: PM [facility] Comment:Risk of cardiovascul ar disease increases when GFR is abnormal; persistently reduced GFR values are a specific indication of CKD. This calculation uses CKD- EPI 2020 equation without adjustment for race; it has not been validated in women. Calcium 9.3 8.4 - 10.5 mg/dL 01/30/2024 4: PM [facility] Glucose 130(H) 70 - 99 mg/dL 01/30/2024 4: PM [facility] Protein, Total 7.0 6.0 - 8.0 g/dL 01/30/2024 4:26 PM [facility] Albumin 3.4(L) 3.5 - 5.0 g/dL 01/30/2024 4:26 PM [facility] Alkaline Phosphatase 248(H) 40 - 150 IU/L 01/30/2024 4:26 PM [facility] Aspartate Aminotransferase 106(H) 10 - 40 IU/L 01/30/2024 4:26 PM [facility] Alanine Aminotransferase 54(H) 6 - 31 IU/L 01/30/2024 4:26 PM [facility] Bilirubin, Total 0.9 0.2 - 1.2 mg/dL 01/30/2024 4:26 PM [facility] Blood BLOOD SPECIMEN / Unknown Venipuncture / Unknown 01/30/2024 3:35 PM CDT 01/30/2024 3:43 PM CDT Narrative [facility] - 01/30/2024 4:26 PM CDT Current ADA criteria for Glucose: ?Normal: 70-99 mg/dL ?Impaired Fasting Glucose: 100-125 mg/dL ?Diabetes Mellitus: at or above 126 mg/dL The diagnosis of diabetes must be confirmed on a subsequent day by measuring Fasting Plasma Glucose, 2-hr PG or random plasma glucose (if symptoms are present). Era Vang MD EC CHEMISTRY ORDER NICKY [facility] [address] [place] [id number] * (ABNORMAL) HEMOGRAM/DIFFERENTIAL (01/30/2024 3:35 PM CDT) WBC 8.6 3.2 - 11.0 10*9/L 01/30/2024 3:47 PM CDT [facility] RBC 3.90 3.77 - 5.24 10*12/L 01/30/2024 3:47 PM CDT [facility] HGB 14.8 11.2 - 15.5 g/dL 01/30/2024 3:47 PM CDT [facility] HCT 43.8 34.3 - 46.0 % 01/30/2024 3:47 PM CDT [facility] MCV 112.3(H) 81.4 - 99.0 fL 01/30/2024 3:47 PM CDT [facility] MCH 37.9(H) 26.7 - 33.1 pg 01/30/2024 3:47 PM CDT [facility] MCHC 33.8 31.6 - 35.5 g/dL 01/30/2024 3:47 PM CDT [facility] RDW 14.5 11.3 - 14.6 % 01/30/2024 3:47 PM CDT [facility] PLT 233 130 - 375 10*9/L 01/30/2024 3:47 PM CDT [facility] Neutrophils % 77.2 % 01/30/2024 3:47 PM CDT [facility] Lymphocytes % 15.7 % 01/30/2024 3:47 PM CDT [facility] Monocytes % 5.7 % 01/30/2024 3:47 PM CDT [facility] Eosinophils % 0.7 % 01/30/2024 3:47 PM CDT [facility] Basophils % 0.5 % 01/30/2024 3:47 PM CDT [facility] Immature Granulocytes % 0.2 % 01/30/2024 3:47 PM CDT [facility] Neutrophils Absolute 6.6 1.5 - 7.6 10*9/L 01/30/2024 3:47 PM CDT [facility] Lymphocytes Absolute 1.3 0.8 - 3.3 10*9/L 01/30/2024 3:47 PM CDT [facility] Monocytes Absolute 0.5 0.2 - 0.9 10*9/L 01/30/2024 3:47 PM CDT [facility] Eosinophils Absolute 0.1 0.0 - 0.4 10*9/L 01/30/2024 3:47 PM CDT [facility] Basophils Absolute 0.0 0.0 - 0.1 10*9/L 01/30/2024 3:47 PM CDT [facility] Immature Granulocytes Absolute 0.02 0.00 - 0.06 10*9/L 01/30/2024 3:47 PM CDT [facility] Blood BLOOD SPECIMEN / Unknown Venipuncture / Unknown 01/30/2024 3:35 PM CDT 01/30/2024 3:43 PM CDT Era Vang MD HEMATOLOGY MIAH NEVAREZ [facility] Organization Address City/State/ZIP Co de Phone Number [facility] [address] [place] [id number] * HOLD SERUM TUBE (01/30/2024 3:35 PM CDT) Blood BLOOD SPECIMEN / Unknown Venipuncture / Unknown 01/30/2024 3:35 PM CDT 01/30/2024 3:43 PM CDT Era Vang MD EC CHEMISTRY ORDER NICKY Performing Organization Address [facility] de Phone Number [facility] [address] [place] [address] * HOLD NA CITRATE (01/30/2024 3:35 PM CDT) Blood BLOOD SPECIMEN / Unknown Venipuncture / Unknown 01/30/2024 3:35 PM CDT 01/30/2024 3:43 PM CDT Era Vang MD EC HEMATOLOGY ORDE RABLES Performing Organization Address [facility] de Phone Number [facility] [address] [place] [address] * HOLD PURPLE TUBE (01/30/2024 3:35 PM CDT) Blood BLOOD SPECIMEN / Unknown Venipuncture / Unknown 01/30/2024 3:35 PM CDT 01/30/2024 3:43 PM CDT Era Vang MD EC HEMATOLOGY ORDE RABLES Performing Organization Address [facility] de Phone Number [facility] [address] [place] [address] * HOLD LI HEPARIN (01/30/2024 3:35 PM CDT) Blood BLOOD SPECIMEN / Unknown Venipuncture / Unknown 01/30/2024 3:35 PM CDT 01/30/2024 3:43 PM CDT Era Vang MD EC CHEMISTRY ORDER NICKY Performing Organization Address [facility] de Phone Number [facility] [address] [place] [address] documented in this encounter Visit Diagnoses Diagnosis C. difficile colitis- Primary Intestinal infection due to clostridium difficile Hypokalemia Hypopotassemia Hypomagnesemia Disorders of magnesium metabolism documented in this encounter Administered Medications Inactive Administered Medications Medication Order MAR Action Action Date Dose Rate Site magnesium sulfate in water infusion 4 g 4 g, Intravenous, at 25 mL/hr, ONCE, 1 dose, On 01/30/24 at 1700 New Bag by Other 01/30/2024 5:31 PM CDT 4 g 25 mL/hr potassium chloride (Klor-Con) packet 80 mEq 80 mEq, Oral, ONCE, 1 dose, On 01/30/24 at 1700 Given 01/30/2024 4:51 PM CDT 80 mEq documented in this encounter Active and Recently Administered Medications Times are shown in CDT. Scheduled Medication Order 01/28/2024 01/29/2024 01/30/2024 magnesium sulfate in water infusion 4 g (COMPLETED) 4 g, Intravenous, at 25 mL/hr, ONCE, 1 dose, On 01/30/24 at 1700 1731 (New Bag by Oth er - Provider: Jesus Madrigal RN)1928 (Stopped - Provider: Hannah Barnes RN) potassium chloride (Klor-Con) packet 80 mEq (COMPLETED) 80 mEq, Oral, ONCE, 1 dose, On 01/30/24 at 1700 1651 (Given - Provid er: Dolly Ramirez RN) documented in this encounter Additional Health Concerns Infection Onset Date Last Indicated Resolved Time C difficile 01/13/2024 01/13/2024 03/02/2024 8:01 AM CDT History of C difficile 01/13/2024 01/13/2024 documented as of this encounter Care Teams Air Tucker Relationship Specialty Start Date End Date Karla Madera, RN [employer] 12/13/22 documented as of this encounter
== END 2024-03-10 13:21 | disposition home or self-care (01) ==
PROVIDERS: PCP Internal Medicine; Visit Provider Internal Medicine
DX: F10.20 Alcohol dependence, uncomplicated (principal); E03.9 Hypothyroidism, unspecified
CPT/HCPCS: 80053; 83735; 84439; 84443

== ENCOUNTER 2024-03-11 10:45 | Outpatient (CLI) | payer MEDICARE, SELFPAY | END 2024-03-11 10:46 | disposition home or self-care (01) | LOC: NFLDREF 03-15 22:54 | PROVIDERS: PCP Internal Medicine; Referring Provider Internal Medicine; Visit Provider Internal Medicine | DX: A04.72 Enterocolitis due to Clostridium difficile, not specified as recurrent (principal) | CPT/HCPCS: 87493 ==

== ENCOUNTER 2024-03-14 13:39 | Outpatient (CLI) | payer MEDICARE, SELFPAY ==
--- NOTE | 2024-03-14 14:45 | CRLHL7_ITS ---
For Patients: As a result of the Century Cures Act, medical imaging exams and procedure reports are released immediately into your electronic medical record. You may view this report before your referring provider. If you have questions, please contact your health care provider. CLINICAL HISTORY: Alcohol dependence COMPARISON: none TECHNIQUE: Real time lewis scale imaging and color Doppler analysis was performed of the abdomen. FINDINGS: The liver is enlarged and measures 19.6 cm. Diffuse coarsening and increased echotexture of the liver noted. Focal areas of sparing are present adjacent to the gallbladder. The spleen is of normal size. The pancreas appears normal. The proximal abdominal aorta and IVC appear normal. Trace ascites is present. The gallbladder is of normal size and there is no evidence of sludge or stones within the gallbladder lumen. The gallbladder wall measures 1.8 mm in thickness. The common bile duct measures 5.1 mm in size within the meir hepatis. The kidneys appear symmetric. The right kidney measures 10.2 cm in length and the left kidney measures 10.2 cm. There is no evidence of a renal calculus or hydronephrosis. IMPRESSION: Hepatomegaly with severe diffuse hepatic steatosis and trace ascites. Remainder unremarkable. Dictated by Jax Sepulveda MD @ 03/15/2024 5:56:28 AM (Electronically Signed)
== END 2024-03-14 13:40 | disposition home or self-care (01) ==
PROVIDERS: PCP Internal Medicine; Visit Provider Internal Medicine
DX: R00.0 Tachycardia, unspecified (principal); I35.1 Nonrheumatic aortic (valve) insufficiency; I34.0 Nonrheumatic mitral (valve) insufficiency; F10.20 Alcohol dependence, uncomplicated
CPT/HCPCS: 76700; 93306